=== PATIENT | female | born 1940 | race Caucasian/White ===

== ENCOUNTER 2016-10-07 11:20 | Inpatient (IN) | payer MEDICARE ==
[2016-10-07] VITALS (8 sets, daily range): BP systolic 117–127; BP diastolic 41–55
[~2016-10-07] VITALS: Ht 172.7 cm; Wt 63.5 kg
[2016-10-07 11:54] LABS: MEAN CORPUSCULAR HEMOGLOBIN 30.6 PG (27.0-31.0); MEAN CORPUSCULAR HGB CONC 31.3 G/DL (32.0-36.0); MEAN CORPUSCULAR VOLUME 98 FL (80-99); MEAN PLATELET VOLUME 7.4 FL (6.5-10.1); PLATELET COUNT 53 K/UL (150-450); RED CELL DISTRIBUTION WIDTH 19.7 % (11.6-14.8)
[2016-10-07] MEDS ORDERED: Tubing IV Cassette IV ONE (11:55)
[2016-10-07 12:05] LABS: ALANINE AMINOTRANSFERASE 11 U/L (3-33); ALBUMIN/GLOBULIN RATIO 1.8 (1.0-2.7); ANION GAP 23 (5-15); ASPARTATE AMINO TRANSFERASE 13 U/L (5-40); CARBON DIOXIDE 18 mEQ/L (20-30); CHLORIDE 98 mEQ/L (98-107); CREATININE 1.2 mg/dL (0.5-0.9); HEMOLYSIS 8; POTASSIUM 3.5 mEQ/L (3.4-4.9); SODIUM 139 mEQ/L (135-145); TOTAL PROTEIN 4.8 g/dL (6.6-8.7)
[2016-10-07 12:06] LABS: TROPONIN I < 0.30 ng/mL (<=0.30)
[2016-10-07 12:16] LABS: CKMB < 1.5 ng/mL (< 3.8)
[2016-10-07 12:34] LABS: BAND NEUTROPHILS % (MANUAL) 3 % (0-8); BASOPHILS % (MANUAL) 0 % (0-2); EOSINOPHILS % (MANUAL) 0 % (0-3); LYMPHOCYTES % (MANUAL) 28 % (20-45); NEUTROPHILS % (MANUAL) 67 % (45-75); NUCLEATED RED BLOOD CELLS 3 /100 WBC; PLATELET ESTIMATE DECREASED; TOTAL CELLS COUNTED 100
[2016-10-07 12:35] LABS: ANISOCYTOSIS 1+; HYPOCHROMASIA 2+; PLATELET MORPHOLOGY NORMAL
--- NOTE | 2016-10-07 12:37 | Emergency Room Report ---
History of Present Illness General Chief Complaint: Generalized Weakness Source: Patient Present Illness HPI Patient present with complaints of dizziness and lightheadedness The patient reports that last week At [facility] patient was transfused blood she has recently been diagnosed with a blood disorder however she was not sure of the name Sounds to be likely MDS Denies any black or tarry stool denies any vomiting of blood Denies any back or flank pain denies any headache Denies any chest pain or short of breath dizziness is significantly worse with standing and ambulation Allergies: Coded Allergies: No Known Allergies (Unverified , 10/07/16) Patient History Past Medical History: see triage record Pertinent Family History: none Reviewed Nursing Documentation: PMH: Agreed, PSxH: Agreed Nursing Documentation-PMH Past Medical History: No History, Except For Hx Hypertension: Yes Review of Systems All Other Systems: negative except mentioned in HPI Physical Exam Vital Signs Date Time Temp Pulse Resp B/P Pulse Ox O2 Delivery O2 Flow Rate FiO2 10/07/16 11:14 97.5 68 20 135/44 98 Room Air 10/07/16 12:00 2.0 Sp02 EP Interpretation: reviewed, normal General Appearance: lethargic Head: normocephalic, atraumatic Eyes: bilateral eye EOMI, bilateral eye PERRL, bilateral eye other - Pale conjunctivae ENT: hearing grossly normal, normal pharynx, TMs + canals normal, uvula midline Neck: full range of motion, supple, no meningismus, no bony tend Respiratory: lungs clear, normal breath sounds, no rhonchi, no respiratory distress, no retraction, no accessory muscle use Cardiovascular #1: normal peripheral pulses, regular rate, rhythm, no edema, no gallop, no JVD, no murmur Gastrointestinal: normal bowel sounds, non tender, soft, no mass, no organomegaly, non-distended, no guarding, no hernia, no pulsatile mass, no rebound Genitourinary: no CVA tenderness Musculoskeletal: normal inspection Neurologic: oriented x3, responsive, 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 III-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 nml as tested, motor strength/ tone normal, sensory intact Psychiatric: mood/affect normal Skin: pallor - significant Lymphatic: normal inspection, no adenopathy Procedures Critical Care Time Critical Care Time 40 minutes for multiple re\re evaluations contact with patient's different physicians Critical findings concerning for life-threatening pathology not including any procedural time Medical Decision Making Diagnostic Impression: Primary Impression: Severe anemia Additional Impression: MDS (myelodysplastic syndrome) ER Course Patient is a fairly complex patient with multiple differential to consideration including but not limited to cardiac cardiopulmonary and vascular emergencies Dr. Norris contacted who is the primary physician Reports the patient has a recent MDS diagnosis Patient cannot provide further information regarding came on however reports Dr. Wiseman is the name Using a search There is a Dr. randi wiseman at [phone] Please note that I did contact the patient's Hemoccult is, after multiple attempts I was unable to speak to the physician Patient has extremity critical given the hemoglobin count We will continue to obtain medical records Patient at this time being emergently transfused and admitted for further inpatient care Labs Test 10/07/16 11:35 10/07/16 12:33 10/07/16 14:30 10/07/16 14:45 White Blood Count 3.0 K/UL (4.8-10.8) Red Blood Count 1.30 M/UL (4.20-5.40) Hemoglobin 4.0 G/DL (12.0-16.0) Hematocrit 12.7 % (37.0-47.0) Mean Corpuscular Volume 98 FL (80-99) Mean Corpuscular Hemoglobin 30.6 PG (27.0-31.0) Mean Corpuscular Hemoglobin Concent 31.3 G/DL (32.0-36.0) Red Cell Distribution Width 19.7 % (11.6-14.8) Platelet Count 53 K/UL (150-450) Mean Platelet Volume 7.4 FL (6.5-10.1) Neutrophils (%) (Auto) % (45.0-75.0) Lymphocytes (%) (Auto) % (20.0-45.0) Monocytes (%) (Auto) % (1.0-10.0) Eosinophils (%) (Auto) % (0.0-3.0) Basophils (%) (Auto) % (0.0-2.0) Differential Total Cells Counted 100 Neutrophils % (Manual) 67 % (45-75) Lymphocytes % (Manual) 28 % (20-45) Monocytes % (Manual) 2 % (1-10) Eosinophils % (Manual) 0 % (0-3) Basophils % (Manual) 0 % (0-2) Band Neutrophils 3 % (0-8) Nucleated Red Blood Cells 3 /100 WBC Platelet Estimate Decreased Platelet Morphology Normal Polychromasia Occasional Hypochromasia 2+ Anisocytosis 1+ Macrocytosis 1+ Sodium Level 139 mEQ/L (135-145) Potassium Level 3.5 mEQ/L (3.4-4.9) Chloride Level 98 mEQ/L (98-107) Carbon Dioxide Level 18 mEQ/L (20-30) Anion Gap 23 (5-15) Blood Urea Nitrogen 50 mg/dL (7-23) Creatinine 1.2 mg/dL (0.5-0.9) Estimat Glomerular Filtration Rate mL/min (>60) Glucose Level 191 mg/dL (74-106) Calcium Level 9.0 mg/dL (8.6-10.2) Total Bilirubin 0.4 mg/dL (0.0-1.2) Aspartate Amino Transf (AST/SGOT) 13 U/L (5-40) Alanine Aminotransferase (ALT/SGPT) 11 U/L (3-33) Alkaline Phosphatase 41 U/L (35-104) Total Creatine Kinase 31 U/L (26-140) Creatine Kinase MB < 1.5 ng/mL (< 3.8) Creatine Kinase MB Relative Index Troponin I < 0.30 ng/mL (<=0.30) Total Protein 4.8 g/dL (6.6-8.7) Albumin 3.1 g/dL (3.5-5.2) Globulin 1.7 g/dL Albumin/Globulin Ratio 1.8 (1.0-2.7) Prothrombin Time 10.5 SEC (9.30-11.50) Prothromb Time International Ratio 1.0 (0.9-1.1) Activated Partial Thromboplast Time 21 SEC (23-33) Erythrocyte Sedimentation Rate 6 MM/HR (0-30) Reticulocyte Count 8.0 % (0.0-2.0) Folate 13.4 ng/mL (>3.0) Test 10/07/16 15:30 10/08/16 06:55 Urine Color Pale yellow Urine Appearance Clear Urine pH 5 (4.5-8.0) Urine Specific [place] 1.015 (1.005-1.035) Urine Protein Negative (NEGATIVE) Urine Glucose (UA) Negative (NEGATIVE) Urine Ketones Negative (NEGATIVE) Urine Occult Blood Negative (NEGATIVE) Urine Nitrite Negative (NEGATIVE) Urine Bilirubin Negative (NEGATIVE) Urine Urobilinogen Normal MG/DL (0.0-1.0) Urine Leukocyte Esterase Negative (NEGATIVE) Urine RBC 0-2 /HPF (0 - 2) Urine WBC 0-2 /HPF (0 - 2) Urine Squamous Epithelial Cells Few /LPF (NONE/OCC) Urine Bacteria Few /HPF (NONE) Urine Eosinophils None seen Urine Random Sodium 29 mmol/L Urine Random Chloride 32 mmol/L Urine Potassium Timed 54 mmol/L White Blood Count 1.8 K/UL (4.8-10.8) Red Blood Count 2.19 M/UL (4.20-5.40) Hemoglobin 6.4 G/DL (12.0-16.0) Hematocrit 19.5 % (37.0-47.0) Mean Corpuscular Volume 89 FL (80-99) Mean Corpuscular Hemoglobin 29.2 PG (27.0-31.0) Mean Corpuscular Hemoglobin Concent 32.9 G/DL (32.0-36.0) Red Cell Distribution Width 15.9 % (11.6-14.8) Platelet Count 44 K/UL (150-450) Mean Platelet Volume 9.7 FL (6.5-10.1) Neutrophils (%) (Auto) % (45.0-75.0) Lymphocytes (%) (Auto) % (20.0-45.0) Monocytes (%) (Auto) % (1.0-10.0) Eosinophils (%) (Auto) % (0.0-3.0) Basophils (%) (Auto) % (0.0-2.0) Differential Total Cells Counted 100 Neutrophils % (Manual) 60 % (45-75) Lymphocytes % (Manual) 34 % (20-45) Monocytes % (Manual) 5 % (1-10) Eosinophils % (Manual) 1 % (0-3) Basophils % (Manual) 0 % (0-2) Band Neutrophils 0 % (0-8) Platelet Estimate Adequate Platelet Morphology Normal Polychromasia 1+ Hypochromasia 4+ Anisocytosis 1+ Spherocytes 2+ Sodium Level 141 mEQ/L (135-145) Potassium Level 3.7 mEQ/L (3.4-4.9) Chloride Level 106 mEQ/L (98-107) Carbon Dioxide Level 23 mEQ/L (20-30) Anion Gap 12 (5-15) Blood Urea Nitrogen 43 mg/dL (7-23) Creatinine 0.9 mg/dL (0.5-0.9) Estimat Glomerular Filtration Rate mL/min (>60) Glucose Level 115 mg/dL (74-106) Uric Acid 3.8 mg/dL (3.0-7.5) Calcium Level 8.1 mg/dL (8.6-10.2) Phosphorus Level 3.0 mg/dL (2.5-4.8) Magnesium Level 2.0 mg/dL (1.7-2.5) Iron Level 138 ug/dL (37-145) Total Iron Binding Capacity 195 ug/dL (250-400) Percent Iron Saturation 71 % (15-50) Unsaturated Iron Binding 57 ug/dL (112-346) Total Bilirubin 0.4 mg/dL (0.0-1.2) Aspartate Amino Transf (AST/SGOT) 11 U/L (5-40) Alanine Aminotransferase (ALT/SGPT) 8 U/L (3-33) Alkaline Phosphatase 38 U/L (35-104) Lactate Dehydrogenase 175 U/L (135-230) Total Creatine Kinase 35 U/L (26-140) Total Protein 4.1 g/dL (6.6-8.7) Albumin 2.6 g/dL (3.5-5.2) Globulin 1.5 g/dL Albumin/Globulin Ratio 1.7 (1.0-2.7) Carcinoembryonic Antigen 1.9 ng/mL Vitamin B12 Level 321 pg/mL (211-946) Thyroid Stimulating Hormone (TSH) 3.690 uIU/mL (0.300-4.500) Free Thyroxine 1.30 ng/dL (0.86-1.85) EKG Diagnostic Results Rate: normal Rhythm: NSR ST Segments: other - Nonspecific ST and T-wave changes, nonspecific QRS prolongation Rhythm Strip Diag. Results EP Interpretation: yes Rate: 60 Rhythm: NSR, no PVC's, no ectopy Chest X-Ray Diagnostic Results EP Interpretation: Yes Findings: no consolidation, no effusion, no pneumothorax Number of Views: 1 Last Vital Signs Date Time Temp Pulse Resp B/P Pulse Ox O2 Delivery O2 Flow Rate FiO2 10/07/16 12:00 83 20 118/43 95 Nasal Cannula 2.0 10/07/16 11:14 97.5 Status: improved Disposition: ADMITTED INPATIENT Condition: Critical DANIELLE FRANCES D.O. October 07, 2016 12:36
[2016-10-07 12:42] LABS: POLYCHROMASIA OCCASIONAL
[2016-10-07 12:43] LABS: MACROCYTES 1+
--- NOTE | 2016-10-07 12:55 | Diagnostic Imaging Report ---
Indication: Chest Pain Comparison: None A single view chest radiograph was obtained. Findings: No definite infiltrate or pulmonary vascular congestion identified. The heart is enlarged. The aorta is mildly enlarged consistent with atherosclerotic vascular disease. The bones are osteopenic. Impression: No acute disease
[2016-10-07 13:55] LABS: PROTHROMBIN TIME 10.5 SEC (9.30-11.50)
[2016-10-07] MEDS ORDERED: UNOBMED (14:07)
[2016-10-07] MEDS ORDERED: Morphine Sulfate 2mg/ml Inj IVP PRN (14:30)
[2016-10-07] MEDS ORDERED: LORazepam Inj 2mg/ml 1ml IV PRN (14:30)
[2016-10-07] MEDS ORDERED: Mylanta II UD 30ml ORAL PRN (14:30)
[2016-10-07] MEDS ORDERED: Zolpidem 5mg tab ORAL PRN (14:30)
[2016-10-07] MEDS ORDERED: Miralax 17gm pkt ORAL PRN (14:30)
--- NOTE | 2016-10-07 16:39 | Diagnostic Imaging Report ---
Indication:Elevated Bun and Creatinine. Technique: Grayscale and duplex Doppler imaging of the kidneys performed. Comparison: None Findings: The size, contour, and echogenicity of both kidneys are within normal limits. There is no hydronephrosis. IVC is unremarkable. Incidentally the gallbladder shows multiple stones. Urinary bladder is unremarkable. Right kidney measures between 10 and 11 cm and on the left between 11 and 12 cm in length. Impression: Negative ultrasound of the kidneys. Gallstones incidentally noted
[2016-10-07 17:34] LABS: APPEARANCE,URINE CLEAR; KETONES,URINE NEGATIVE (NEGATIVE); LEUKOCYTE ESTERASE ,URINE NEGATIVE (NEGATIVE); NITRITE,URINE NEGATIVE (NEGATIVE); PH,URINE 5 (4.5-8.0); PROTEIN,URINE NEGATIVE (NEGATIVE); UROBILINOGEN,URINE NORMAL MG/DL (0.0-1.0)
[2016-10-07 18:22] LABS: BACTERIA,URINE FEW /HPF; RBC,URINE 0-2 /HPF (0 - 2); SQUAMOUS EPITHELIAL CELL,UR FEW /LPF (NONE/OCC); WBC,URINE 0-2 /HPF (0 - 2)
[2016-10-07 19:34] LABS: PATH BLOOD SMEAR/OMC SENT TO PATHOLOGIST
[2016-10-08] VITALS (7 sets, daily range): BP systolic 96–129; BP diastolic 42–69
--- NOTE | 2016-10-08 00:11 | History and Physical ---
History of Present Illness General Date patient seen: October 07, 2016 Reason for Hospitalization: Generalized Weakness Present Illness HPI 76 year old female with hx of MDS on chemotherapy presented with complaints of dizziness and lightheadedness She was transfused blood last week. Her Hemoglobin was 4 in ER. She is admitted to telemetry for further work up. Allergies: Coded Allergies: No Known Allergies (Unverified , 10/07/16) Medication History Miscellaneous Medications Unable to Obtain Medications (Unable To Obtain Meds), (Reported) Patient History Healthcare decision maker NONE Resuscitation status Full Code Advanced Directive on File Past Medical/Surgical History Past Medical/Surgical History: (1) Severe anemia (2) MDS (myelodysplastic syndrome) Review of Systems Constitutional: Reports: malaise, weakness All Other Systems: negative except mentioned in HPI Physical Exam General Appearance: WD/WN Lines, tubes and drains: peripheral HEENT: normocephalic, anicteric Neck: non-tender Respiratory/Chest: chest wall non-tender Cardiovascular/Chest: normal peripheral pulses, regular rhythm Extremities: normal range of motion Skin Exam: normal pigmentation 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 grossly normal Last 24 Hour Vital Signs Date Time Temp Pulse Resp B/P Pulse Ox O2 Delivery O2 Flow Rate FiO2 10/07/16 20:29 98.3 62 19 118/45 97 Nasal Cannula 2.0 10/07/16 20:00 67 10/07/16 19:30 97 Nasal Cannula 1.0 24 10/07/16 19:30 Nasal Cannula 1.0 24 10/07/16 18:30 69 18 125/55 96 Room Air 10/07/16 17:41 99.0 68 18 123/41 100 Nasal Cannula 2.0 10/07/16 16:00 68 18 123/41 100 Nasal Cannula 2.0 10/07/16 15:00 99.0 67 20 10/07/16 14:00 70 18 127/42 95 Nasal Cannula 2.0 10/07/16 13:30 98.5 64 20 10/07/16 13:15 98.5 66 18 10/07/16 12:00 83 20 118/43 95 Nasal Cannula 2.0 10/07/16 11:14 97.5 68 20 135/44 98 Room Air Intake and Output 10/07/16 10/08/16 18:59 06:59 Intake Total 830 ml Balance 830 ml Intake Oral 0 ml IV Total 500 ml Blood Product 330 ml Laboratory Tests Test 10/07/16 11:35 10/07/16 12:33 10/07/16 14:30 10/07/16 14:45 White Blood Count 3.0 K/UL (4.8-10.8) L Red Blood Count 1.30 M/UL (4.20-5.40) L Hemoglobin 4.0 G/DL (12.0-16.0) *L Hematocrit 12.7 % (37.0-47.0) L Mean Corpuscular Volume 98 FL (80-99) Mean Corpuscular Hemoglobin 30.6 PG (27.0-31.0) Mean Corpuscular Hemoglobin Concent 31.3 G/DL (32.0-36.0) L Red Cell Distribution Width 19.7 % (11.6-14.8) H Platelet Count 53 K/UL (150-450) L Mean Platelet Volume 7.4 FL (6.5-10.1) Neutrophils (%) (Auto) % (45.0-75.0) Lymphocytes (%) (Auto) % (20.0-45.0) Monocytes (%) (Auto) % (1.0-10.0) Eosinophils (%) (Auto) % (0.0-3.0) Basophils (%) (Auto) % (0.0-2.0) Differential Total Cells Counted 100 Neutrophils % (Manual) 67 % (45-75) Lymphocytes % (Manual) 28 % (20-45) Monocytes % (Manual) 2 % (1-10) Eosinophils % (Manual) 0 % (0-3) Basophils % (Manual) 0 % (0-2) Band Neutrophils 3 % (0-8) Nucleated Red Blood Cells 3 /100 WBC Platelet Estimate Decreased L Platelet Morphology Normal Polychromasia Occasional Hypochromasia 2+ Anisocytosis 1+ Macrocytosis 1+ Sodium Level 139 mEQ/L (135-145) Potassium Level 3.5 mEQ/L (3.4-4.9) Chloride Level 98 mEQ/L (98-107) Carbon Dioxide Level 18 mEQ/L (20-30) L Anion Gap 23 (5-15) H Blood Urea Nitrogen 50 mg/dL (7-23) H Creatinine 1.2 mg/dL (0.5-0.9) H Estimat Glomerular Filtration Rate mL/min (>60) Glucose Level 191 mg/dL (74-106) H Calcium Level 9.0 mg/dL (8.6-10.2) Total Bilirubin 0.4 mg/dL (0.0-1.2) Aspartate Amino Transf (AST/SGOT) 13 U/L (5-40) Alanine Aminotransferase (ALT/SGPT) 11 U/L (3-33) Alkaline Phosphatase 41 U/L (35-104) Total Creatine Kinase 31 U/L (26-140) Creatine Kinase MB < 1.5 ng/mL (< 3.8) Creatine Kinase MB Relative Index Troponin I < 0.30 ng/mL (<=0.30) Total Protein 4.8 g/dL (6.6-8.7) L Albumin 3.1 g/dL (3.5-5.2) L Globulin 1.7 g/dL Albumin/Globulin Ratio 1.8 (1.0-2.7) Prothrombin Time 10.5 SEC (9.30-11.50) Prothromb Time International Ratio 1.0 (0.9-1.1) Activated Partial Thromboplast Time 21 SEC (23-33) L Erythrocyte Sedimentation Rate 6 MM/HR (0-30) Reticulocyte Count 8.0 % (0.0-2.0) H Folate Pending Test 10/07/16 15:30 Urine Color Pale yellow Urine Appearance Clear Urine pH 5 (4.5-8.0) Urine Specific [place] 1.015 (1.005-1.035) Urine Protein Negative (NEGATIVE) Urine Glucose (UA) Negative (NEGATIVE) Urine Ketones Negative (NEGATIVE) Urine Occult Blood Negative (NEGATIVE) Urine Nitrite Negative (NEGATIVE) Urine Bilirubin Negative (NEGATIVE) Urine Urobilinogen Normal MG/DL (0.0-1.0) Urine Leukocyte Esterase Negative (NEGATIVE) Urine RBC 0-2 /HPF (0 - 2) Urine WBC 0-2 /HPF (0 - 2) Urine Squamous Epithelial Cells Few /LPF (NONE/OCC) Urine Bacteria Few /HPF (NONE) Urine Eosinophils None seen Urine Random Sodium 29 mmol/L Urine Random Chloride 32 mmol/L Urine Potassium Timed 54 mmol/L Height (Feet): 5 Height (Inches): 8.00 Weight (Pounds): 140 Medications Current Medications Medications (Trade) Dose Ordered Sig/Coby Route PRN Reason Start Time Stop Time Status Last Admin Dose Admin Acetaminophen (Tylenol) 650 mg Q4H PRN ORAL fever 10/07/16 14:30 11/06/16 14:29 Al Hydroxide/Mg Hydroxide (Mylanta II) 30 ml Q6H PRN ORAL dyspepsia 10/07/16 14:30 11/06/16 14:29 Dextrose (Dextrose 50%) STAT PRN IV Hypoglycemia 10/07/16 14:30 11/06/16 14:29 Lorazepam (Ativan 2mg/ml 1ml) 0.5 mg Q4H PRN IV For Anxiety 10/07/16 14:30 10/14/16 14:29 Morphine Sulfate (Morphine Sulfate) 1 mg Q4H PRN IVP SEVERE PAIN 10/07/16 14:30 10/14/16 14:29 Ondansetron HCl (Zofran) 4 mg Q6H PRN IVP Nausea & Vomiting 10/07/16 14:30 11/06/16 14:29 Polyethylene Glycol (Miralax) 17 gm HSPRN PRN ORAL Constipation 10/07/16 14:30 11/06/16 14:29 Zolpidem Tartrate (Ambien) 5 mg HSPRN PRN ORAL Insomnia 10/07/16 14:30 11/06/16 14:29 Assessment/Plan Problem List: (1) Symptomatic anemia ICD Codes: D64.9 - Anemia, unspecified SNOMED: 203834637 (2) MDS (myelodysplastic syndrome) ICD Codes: D46.9 - Myelodysplastic syndrome, unspecified SNOMED: 427581563 (3) Severe anemia ICD Codes: D64.9 - Anemia, unspecified SNOMED: 859452850 (4) History of hypertension ICD Codes: Z86.79 - Personal history of other diseases of the circulatory system SNOMED: 043757236 Assessment/Plan prbc check h/h in am rule out GI loss dvt prophylaxis monitor BP RM GONZALEZ October 08, 2016 00:11
[2016-10-08 07:46] LABS: MEAN CORPUSCULAR HEMOGLOBIN 29.2 PG (27.0-31.0); MEAN CORPUSCULAR HGB CONC 32.9 G/DL (32.0-36.0); MEAN CORPUSCULAR VOLUME 89 FL (80-99); MEAN PLATELET VOLUME 9.7 FL (6.5-10.1); PLATELET COUNT 44 K/UL (150-450); RED BLOOD COUNT 2.19 M/UL (4.20-5.40); RED CELL DISTRIBUTION WIDTH 15.9 % (11.6-14.8)
[2016-10-08 07:54] LABS: WHITE BLOOD COUNT 1.8 K/UL (4.8-10.8)
[2016-10-08 08:00] LABS: ALANINE AMINOTRANSFERASE 8 U/L (3-33); ALBUMIN/GLOBULIN RATIO 1.7 (1.0-2.7); ANION GAP 12 (5-15); ASPARTATE AMINO TRANSFERASE 11 U/L (5-40); CALCIUM 8.1 mg/dL (8.6-10.2); CARBON DIOXIDE 23 mEQ/L (20-30); CHLORIDE 106 mEQ/L (98-107); CREATININE 0.9 mg/dL (0.5-0.9); HEMOLYSIS 2; POTASSIUM 3.7 mEQ/L (3.4-4.9); SODIUM 141 mEQ/L (135-145); TOTAL PROTEIN 4.1 g/dL (6.6-8.7)
[2016-10-08 08:03] LABS: HEMOLYSIS 4; IRON 138 ug/dL (37-145); TOTAL IRON BINDING CAPACITY 195 ug/dL (250-400)
[2016-10-08 08:25] LABS: LACTATE DEHYDROGENASE 175 U/L (135-230); URIC ACID 3.8 mg/dL (3.0-7.5)
--- NOTE | 2016-10-08 09:19 | Pulmonology Progress Note ---
Assessment/Plan Problems: (1) Symptomatic anemia (2) MDS (myelodysplastic syndrome) (3) Severe anemia (4) History of hypertension Assessment/Plan prbc prn stool for OB monitor bp anemia w/u pt/ot med/surg Subjective ROS Limited/Unobtainable: No HEENT: Repors: no symptoms Respiratory: Reports: no symptoms Allergies: Coded Allergies: No Known Allergies (Unverified , 10/07/16) Objective Last 24 Hour Vital Signs Date Time Temp Pulse Resp B/P Pulse Ox O2 Delivery O2 Flow Rate FiO2 10/08/16 08:00 98.1 58 20 117/42 97 10/08/16 04:05 98.3 60 19 126/58 95 Nasal Cannula 2.0 10/08/16 04:00 55 10/08/16 00:16 98.6 63 18 129/55 95 Nasal Cannula 2.0 10/08/16 00:00 56 10/07/16 23:30 97.9 60 19 125/55 97 Room Air 10/07/16 20:29 98.3 62 19 118/45 97 Nasal Cannula 2.0 10/07/16 20:15 98.0 60 19 127/50 97 Room Air 10/07/16 20:00 98.2 62 19 117/45 97 Room Air 10/07/16 20:00 67 10/07/16 19:30 97 Nasal Cannula 1.0 24 10/07/16 19:30 Nasal Cannula 1.0 24 10/07/16 18:30 69 18 125/55 96 Room Air 10/07/16 17:41 99.0 68 18 123/41 100 Nasal Cannula 2.0 10/07/16 16:00 68 18 123/41 100 Nasal Cannula 2.0 10/07/16 15:00 99.0 67 20 10/07/16 14:00 70 18 127/42 95 Nasal Cannula 2.0 10/07/16 13:30 98.5 64 20 10/07/16 13:15 98.5 66 18 10/07/16 12:00 83 20 118/43 95 Nasal Cannula 2.0 10/07/16 11:14 97.5 68 20 135/44 98 Room Air Intake and Output 10/07/16 10/08/16 19:00 07:00 Intake Total 830 ml 670 ml Balance 830 ml 670 ml Intake Oral 0 ml 120 ml IV Total 500 ml Blood Product 330 ml 550 ml # Voids 4 General Appearance: WD/WN HEENT: normocephalic Respiratory/Chest: chest wall non-tender, lungs clear Cardiovascular: normal rate Abdomen: normal bowel sounds, no organomegaly 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/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 normal, no motor/sensory deficits Lymphatic: no neck adenopathy Laboratory Tests 10/07/16 11:35: White Blood Count 3.0L, Red Blood Count 1.30L, Hemoglobin 4.0*L, Hematocrit 12.7L, Mean Corpuscular Volume 98, Mean Corpuscular Hemoglobin 30.6, Mean Corpuscular Hemoglobin Concent 31.3L, Red Cell Distribution Width 19.7H, Platelet Count 53L, Mean Platelet Volume 7.4, Neutrophils (%) (Auto) , Lymphocytes (%) (Auto) , Monocytes (%) (Auto) , Eosinophils (%) (Auto) , Basophils (%) (Auto) , Differential Total Cells Counted 100, Neutrophils % ( Manual) 67, Lymphocytes % (Manual) 28, Monocytes % (Manual) 2, Eosinophils % ( Manual) 0, Basophils % (Manual) 0, Band Neutrophils 3, Nucleated Red Blood Cells 3, Platelet Estimate DecreasedL, Platelet Morphology Normal, Polychromasia Occasional, Hypochromasia 2+, Anisocytosis 1+, Macrocytosis 1+, Sodium Level 139, Potassium Level 3.5, Chloride Level 98, Carbon Dioxide Level 18L, Anion Gap 23H, Blood Urea Nitrogen 50H, Creatinine 1.2H, Estimat Glomerular Filtration Rate , Glucose Level 191H, Calcium Level 9.0, Total Bilirubin 0.4, Aspartate Amino Transf (AST/SGOT) 13, Alanine Aminotransferase ( ALT/SGPT) 11, Alkaline Phosphatase 41, Total Creatine Kinase 31, Creatine Kinase MB < 1.5, Creatine Kinase MB Relative Index , Troponin I < 0.30, Total Protein 4.8L, Albumin 3.1L, Globulin 1.7, Albumin/Globulin Ratio 1.8 10/07/16 12:33: Prothrombin Time 10.5, Prothromb Time International Ratio 1.0, Activated Partial Thromboplast Time 21L 10/07/16 14:30: Erythrocyte Sedimentation Rate 6, Reticulocyte Count 8.0H 10/07/16 14:45: Folate [Pending] 10/07/16 15:30: Urine Color Pale yellow, Urine Appearance Clear, Urine pH 5, Urine Specific [place] 1.015, Urine Protein Negative, Urine Glucose (UA) Negative, Urine Ketones Negative, Urine Occult Blood Negative, Urine Nitrite Negative, Urine Bilirubin Negative, Urine Urobilinogen Normal, Urine Leukocyte Esterase Negative , Urine RBC 0-2, Urine WBC 0-2, Urine Squamous Epithelial Cells Few, Urine Bacteria Few, Urine Eosinophils None seen, Urine Random Sodium 29, Urine Random Chloride 32, Urine Potassium Timed 54 10/08/16 06:55: White Blood Count 1.8*L, Red Blood Count 2.19L, Hemoglobin 6.4#*L, Hematocrit 19.5#L, Mean Corpuscular Volume 89#, Mean Corpuscular Hemoglobin 29.2, Mean Corpuscular Hemoglobin Concent 32.9, Red Cell Distribution Width 15.9H, Platelet Count 44L, Mean Platelet Volume 9.7, Neutrophils (%) (Auto) , Lymphocytes (%) (Auto) , Monocytes (%) (Auto) , Eosinophils (%) (Auto) , Basophils (%) (Auto) , Neutrophils % (Manual) [Pending], Lymphocytes % (Manual) [Pending], Platelet Estimate [Pending], Platelet Morphology [Pending], Sodium Level 141, Potassium Level 3.7, Chloride Level 106, Carbon Dioxide Level 23, Anion Gap 12, Blood Urea Nitrogen 43H, Creatinine 0.9, Estimat Glomerular Filtration Rate , Glucose Level 115H, Uric Acid 3.8, Calcium Level 8.1L, Phosphorus Level 3.0, Magnesium Level 2.0, Iron Level 138, Total Iron Binding Capacity 195L, Percent Iron Saturation 71H, Unsaturated Iron Binding 57L, Total Bilirubin 0.4, Aspartate Amino Transf (AST/SGOT) 11, Alanine Aminotransferase ( ALT/SGPT) 8, Alkaline Phosphatase 38, Lactate Dehydrogenase 175, Total Creatine Kinase 35, Total Protein 4.1L, Albumin 2.6L, Globulin 1.5, Albumin/Globulin Ratio 1.7, Carcinoembryonic Antigen 1.9, Vitamin B12 Level 321, Folate [Pending] , Thyroid Stimulating Hormone (TSH) 3.690, Free Thyroxine 1.30, Free Triiodothyronine [Pending] Current Medications Medications (Trade) Dose Ordered Sig/Coby Route PRN Reason Start Time Stop Time Status Last Admin Dose Admin Acetaminophen (Tylenol) 650 mg Q4H PRN ORAL fever 10/07/16 14:30 11/06/16 14:29 Al Hydroxide/Mg Hydroxide (Mylanta II) 30 ml Q6H PRN ORAL dyspepsia 10/07/16 14:30 11/06/16 14:29 Dextrose (Dextrose 50%) STAT PRN IV Hypoglycemia 10/07/16 14:30 11/06/16 14:29 Lorazepam (Ativan 2mg/ml 1ml) 0.5 mg Q4H PRN IV For Anxiety 10/07/16 14:30 10/14/16 14:29 Morphine Sulfate (Morphine Sulfate) 1 mg Q4H PRN IVP SEVERE PAIN 10/07/16 14:30 10/14/16 14:29 Ondansetron HCl (Zofran) 4 mg Q6H PRN IVP Nausea & Vomiting 10/07/16 14:30 11/06/16 14:29 Polyethylene Glycol (Miralax) 17 gm HSPRN PRN ORAL Constipation 10/07/16 14:30 11/06/16 14:29 Zolpidem Tartrate (Ambien) 5 mg HSPRN PRN ORAL Insomnia 10/07/16 14:30 11/06/16 14:29 RM GONZALEZ October 08, 2016 09:19
[2016-10-08 09:56] LABS: ANISOCYTOSIS 1+; BAND NEUTROPHILS % (MANUAL) 0 % (0-8); BASOPHILS % (MANUAL) 0 % (0-2); EOSINOPHILS % (MANUAL) 1 % (0-3); HYPOCHROMASIA 4+; LYMPHOCYTES % (MANUAL) 34 % (20-45); NEUTROPHILS % (MANUAL) 60 % (45-75); PLATELET ESTIMATE ADEQUATE; PLATELET MORPHOLOGY NORMAL; POLYCHROMASIA 1+; SPHEROCYTES 2+; TOTAL CELLS COUNTED 100
[2016-10-09] VITALS (7 sets, daily range): BP systolic 99–128; BP diastolic 41–52
[2016-10-09] MEDS ORDERED: OXYBUTYNIN5 MG/5 M1 PO (00:30)
[2016-10-09] MEDS ORDERED: POTASSIUM CHLO20 ME1 ORAL (00:30)
[2016-10-09] MEDS ORDERED: ATORVASTATIN CA40 MG ORAL (00:30)
[2016-10-09] MEDS ORDERED: VITAMIN D-32000 UNI2 PO (00:30)
[2016-10-09] MEDS ORDERED: LOSARTAN-HCTZ1 EAC1 ORAL (00:30)
[2016-10-09] MEDS ORDERED: FERROUS SULFAT325 M2 ORAL (00:30)
[2016-10-09] MEDS ORDERED: COLACE100 MG ORAL (00:30)
[2016-10-09] MEDS ORDERED: AMIODARONE HCL100 MG ORAL (00:30)
[2016-10-09 07:57] LABS: MEAN CORPUSCULAR HEMOGLOBIN 28.8 PG (27.0-31.0); MEAN CORPUSCULAR HGB CONC 33.1 G/DL (32.0-36.0); MEAN CORPUSCULAR VOLUME 87 FL (80-99); MEAN PLATELET VOLUME 8.8 FL (6.5-10.1); PLATELET COUNT 31 K/UL (150-450); RED BLOOD COUNT 2.38 M/UL (4.20-5.40); RED CELL DISTRIBUTION WIDTH 16.4 % (11.6-14.8)
[2016-10-09 08:14] LABS: ALANINE AMINOTRANSFERASE 8 U/L (3-33); ALBUMIN/GLOBULIN RATIO 1.5 (1.0-2.7); ANION GAP 11 (5-15); ASPARTATE AMINO TRANSFERASE 11 U/L (5-40); CALCIUM 8.2 mg/dL (8.6-10.2); CARBON DIOXIDE 24 mEQ/L (20-30); CHLORIDE 105 mEQ/L (98-107); HEMOLYSIS 3; MAGNESIUM 2.2 mg/dL (1.7-2.5); PHOSPHORUS 3.3 mg/dL (2.5-4.8); POTASSIUM 3.7 mEQ/L (3.4-4.9); SODIUM 140 mEQ/L (135-145)
[2016-10-09 08:18] LABS: WHITE BLOOD COUNT 1.6 K/UL (4.8-10.8)
[2016-10-09 11:28] LABS: FREE TRIIODOTHYRONINE 1.9 pg/mL (2.0-4.4)
[2016-10-09 11:57] LABS: ANISOCYTOSIS 1+; BAND NEUTROPHILS % (MANUAL) 1 % (0-8); BASOPHILS % (MANUAL) 1 % (0-2); EOSINOPHILS % (MANUAL) 1 % (0-3); LYMPHOCYTES % (MANUAL) 38 % (20-45); NEUTROPHILS % (MANUAL) 57 % (45-75); NUCLEATED RED BLOOD CELLS 2 /100 WBC; PLATELET ESTIMATE DECREASED; PLATELET MORPHOLOGY NORMAL; TOTAL CELLS COUNTED 100
[2016-10-09 12:00] LABS: HYPOCHROMASIA 1+
[2016-10-09 12:01] LABS: POLYCHROMASIA 1+
--- NOTE | 2016-10-09 13:04 | Pulmonology Progress Note ---
Assessment/Plan Problems: (1) Symptomatic anemia (2) MDS (myelodysplastic syndrome) (3) Severe anemia (4) History of hypertension Assessment/Plan prbc prn stool for OB monitor bp anemia w/u pt/ot med/surg Subjective ROS Limited/Unobtainable: No Interval Events: receiving blood Allergies: Coded Allergies: No Known Allergies (Unverified , 10/07/16) Objective Last 24 Hour Vital Signs Date Time Temp Pulse Resp B/P Pulse Ox O2 Delivery O2 Flow Rate FiO2 10/09/16 11:43 97.5 66 20 101/43 98 Room Air 10/09/16 08:25 96 Nasal Cannula 2.0 28 10/09/16 08:20 Nasal Cannula 2.0 28 10/09/16 08:00 67 10/09/16 07:55 97.7 60 18 116/41 97 Room Air 10/09/16 04:41 61 10/09/16 04:00 98.0 91 20 99/41 94 Room Air 10/09/16 00:00 61 10/09/16 00:00 97.9 63 19 112/48 99 Room Air 10/08/16 20:00 67 10/08/16 20:00 97.5 66 21 118/46 97 Room Air 10/08/16 19:30 97 Nasal Cannula 2.0 28 10/08/16 19:30 Nasal Cannula 2.0 28 10/08/16 16:00 59 10/08/16 15:51 97.5 89 19 101/49 99 Nasal Cannula 1.0 Intake and Output 10/08/16 10/09/16 19:00 07:00 Intake Total 440 ml Output Total 900 ml Balance -460 ml Intake Oral 440 ml Output Urine Total 900 ml # Voids 2 General Appearance: WD/WN HEENT: normocephalic, atraumatic Respiratory/Chest: chest wall non-tender, lungs clear Breasts: no masses Cardiovascular: normal peripheral pulses, normal rate Abdomen: normal bowel sounds Genitourinary: normal external genitalia Skin: no rash, no lesions 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 grossly normal Lymphatic: no neck adenopathy Laboratory Tests 10/09/16 07:10: White Blood Count 1.6*L, Red Blood Count 2.38L, Hemoglobin 6.8*L, Hematocrit 20.7L, Mean Corpuscular Volume 87, Mean Corpuscular Hemoglobin 28.8, Mean Corpuscular Hemoglobin Concent 33.1, Red Cell Distribution Width 16.4H, Platelet Count 31L, Mean Platelet Volume 8.8, Neutrophils (%) (Auto) , Lymphocytes (%) (Auto) , Monocytes (%) (Auto) , Eosinophils (%) (Auto) , Basophils (%) (Auto) , Differential Total Cells Counted 100, Neutrophils % ( Manual) 57, Lymphocytes % (Manual) 38, Monocytes % (Manual) 2, Eosinophils % ( Manual) 1, Basophils % (Manual) 1, Band Neutrophils 1, Nucleated Red Blood Cells 2, Platelet Estimate DecreasedL, Platelet Morphology Normal, Polychromasia 1+, Hypochromasia 1+, Basophilic Stippling Occasional, Anisocytosis 1+, Prothrombin Time 10.0, Prothromb Time International Ratio 1.0, Activated Partial Thromboplast Time 21L, Sodium Level 140, Potassium Level 3.7, Chloride Level 105, Carbon Dioxide Level 24, Anion Gap 11, Blood Urea Nitrogen 36H, Creatinine 1.0H, Estimat Glomerular Filtration Rate , Glucose Level 109H, Calcium Level 8.2L, Phosphorus Level 3.3, Magnesium Level 2.2, Total Bilirubin 0.4, Aspartate Amino Transf (AST/SGOT) 11, Alanine Aminotransferase (ALT/SGPT) 8 , Alkaline Phosphatase 35, Total Protein 4.0L, Albumin 2.4L, Globulin 1.6, Albumin/Globulin Ratio 1.5 10/09/16 07:30: Stool Occult Blood Positive Current Medications Medications (Trade) Dose Ordered Sig/Coby Route PRN Reason Start Time Stop Time Status Last Admin Dose Admin Acetaminophen (Tylenol) 650 mg Q4H PRN ORAL fever 10/07/16 14:30 11/06/16 14:29 Al Hydroxide/Mg Hydroxide (Mylanta II) 30 ml Q6H PRN ORAL dyspepsia 10/07/16 14:30 11/06/16 14:29 Dextrose (Dextrose 50%) STAT PRN IV Hypoglycemia 10/07/16 14:30 11/06/16 14:29 Lorazepam (Ativan 2mg/ml 1ml) 0.5 mg Q4H PRN IV For Anxiety 10/07/16 14:30 10/14/16 14:29 Morphine Sulfate (Morphine Sulfate) 1 mg Q4H PRN IVP SEVERE PAIN 10/07/16 14:30 10/14/16 14:29 Ondansetron HCl (Zofran) 4 mg Q6H PRN IVP Nausea & Vomiting 10/07/16 14:30 11/06/16 14:29 Polyethylene Glycol (Miralax) 17 gm HSPRN PRN ORAL Constipation 10/07/16 14:30 11/06/16 14:29 Zolpidem Tartrate (Ambien) 5 mg HSPRN PRN ORAL Insomnia 10/07/16 14:30 11/06/16 14:29 RM GONZALEZ October 09, 2016 13:04
--- NOTE | 2016-10-09 13:54 | GI Initial Consult Note ---
Danay Marquezh Jasmeet NIlanPIlan 10/09/16 1354: History of Present Illness General Date patient seen: October 09, 2016 Time patient seen: 11:00 Reason for Hospitalization: Generalized Weakness Referring physician: RM PANCHAL Reason for Consultation: OB STOOL POSITIVE Present Illness HPI 76 year old female with hx of MDS on chemotherapy presented with complaints of dizziness and lightheadedness She was transfused blood last week. Her Hemoglobin was 4 in ER. She is admitted to telemetry for further work up. GI CONSULT: HPI as noted above. GI consulted for anemia and positive occult blood. Pt seen on floor, awake A&Ox4 NAD with no active s/sx of bleeding. No general GI complaints by patient. She presents today with pancytopenia, hx of MDS and positive occult stool. According to the patient, she's had multiple colonoscopies and upper endoscopies in the past for her anemia with unremarkable results. In addition the patient had undergone a small bowel capsule endoscopy with unremarkable results. The patient stated she was suppose to go to [facility] to have a Small Bowel Double Balloon Endoscopy perform. PCP - Adolph Dalton @ [phone] Home Meds Reported Medications Losartan/Hydrochlorothiazide (LOSARTAN-HCTZ 100-25 MG TAB) 1 Each Tablet, 1 TAB ORAL DAILY, TAB 10/09/16 Oxybutynin Chloride (OXYBUTYNIN CHLORIDE) 5 Mg/5 Ml Syrup, 5 MG PO DAILY, ML 10/09/16 Cholecalciferol (Vitamin D3) (Vitamin D-3) 2,000 Unit Tablet, 1000 UNIT PO, TAB 10/09/16 Potassium Chloride* (K-DUR*) 20 Meq Tab.er.prt, 20 MEQ ORAL DAILY, #7 TAB 0 Refills 10/09/16 Docusate Sodium* (COLACE*) 100 Mg Capsule, 100 MG ORAL DAILY, CAP 10/09/16 Ferrous Sulfate (FERROUS SULFATE) 325 Mg Tablet.dr, 325 MG ORAL DAILY, #30 TAB 0 Refills 10/09/16 Atorvastatin Calcium* (ATORVASTATIN CALCIUM*) 40 Mg Tablet, 40 MG ORAL BEDTIME, TAB 10/09/16 Amiodarone Hcl (AMIODARONE HCL) 100 Mg Tablet, 200 MG ORAL DAILY, TAB 10/09/16 Unable to Obtain Medications (UNABLE TO OBTAIN MEDS) 1 Ea Ea 10/07/16 Med list reviewed/reconciled: Yes Allergies: Coded Allergies: No Known Allergies (Unverified , 10/07/16) Patient History History Provided By: Patient, Medical Record [facility] Narrative (1) Severe anemia (2) MDS (myelodysplastic syndrome) Social History: Denies: alcohol use, drug use, other, smoking Review of Systems All Other Systems: negative except mentioned in HPI Physical Exam Vital Signs Date Time Temp Pulse Resp B/P Pulse Ox O2 Delivery O2 Flow Rate FiO2 10/07/16 11:14 97.5 68 20 135/44 98 Room Air 10/07/16 12:00 2.0 10/07/16 19:30 24 Sp02 EP Interpretation: reviewed Labs Laboratory Tests Test 10/09/16 07:10 10/09/16 07:30 White Blood Count 1.6 K/UL (4.8-10.8) *L Red Blood Count 2.38 M/UL (4.20-5.40) L Hemoglobin 6.8 G/DL (12.0-16.0) *L Hematocrit 20.7 % (37.0-47.0) L Mean Corpuscular Volume 87 FL (80-99) Mean Corpuscular Hemoglobin 28.8 PG (27.0-31.0) Mean Corpuscular Hemoglobin Concent 33.1 G/DL (32.0-36.0) Red Cell Distribution Width 16.4 % (11.6-14.8) H Platelet Count 31 K/UL (150-450) L Mean Platelet Volume 8.8 FL (6.5-10.1) Neutrophils (%) (Auto) % (45.0-75.0) Lymphocytes (%) (Auto) % (20.0-45.0) Monocytes (%) (Auto) % (1.0-10.0) Eosinophils (%) (Auto) % (0.0-3.0) Basophils (%) (Auto) % (0.0-2.0) Differential Total Cells Counted 100 Neutrophils % (Manual) 57 % (45-75) Lymphocytes % (Manual) 38 % (20-45) Monocytes % (Manual) 2 % (1-10) Eosinophils % (Manual) 1 % (0-3) Basophils % (Manual) 1 % (0-2) Band Neutrophils 1 % (0-8) Nucleated Red Blood Cells 2 /100 WBC Platelet Estimate Decreased L Platelet Morphology Normal Polychromasia 1+ Hypochromasia 1+ Basophilic Stippling Occasional Anisocytosis 1+ Prothrombin Time 10.0 SEC (9.30-11.50) Prothromb Time International Ratio 1.0 (0.9-1.1) Activated Partial Thromboplast Time 21 SEC (23-33) L Sodium Level 140 mEQ/L (135-145) Potassium Level 3.7 mEQ/L (3.4-4.9) Chloride Level 105 mEQ/L (98-107) Carbon Dioxide Level 24 mEQ/L (20-30) Anion Gap 11 (5-15) Blood Urea Nitrogen 36 mg/dL (7-23) H Creatinine 1.0 mg/dL (0.5-0.9) H Estimat Glomerular Filtration Rate mL/min (>60) Glucose Level 109 mg/dL (74-106) H Calcium Level 8.2 mg/dL (8.6-10.2) L Phosphorus Level 3.3 mg/dL (2.5-4.8) Magnesium Level 2.2 mg/dL (1.7-2.5) Total Bilirubin 0.4 mg/dL (0.0-1.2) Aspartate Amino Transf (AST/SGOT) 11 U/L (5-40) Alanine Aminotransferase (ALT/SGPT) 8 U/L (3-33) Alkaline Phosphatase 35 U/L (35-104) Total Protein 4.0 g/dL (6.6-8.7) L Albumin 2.4 g/dL (3.5-5.2) L Globulin 1.6 g/dL Albumin/Globulin Ratio 1.5 (1.0-2.7) Stool Occult Blood Positive (NEGATIVE) General Appearance: well appearing, no apparent distress, alert Head: normocephalic EENT: normal ENT inspection Neck: supple Respiratory: normal breath sounds, no respiratory distress Cardiovascular: normal rate Gastrointestinal: normal inspection, non tender, soft Rectal: deferred Neurologic: normal inspection, alert, oriented x3, responsive Psychiatric: normal inspection, judgement/insight normal, memory normal, other Skin: normal inspection, normal color, no rash, warm/dry Lymphatic: normal inspection, no adenopathy Current Medications Current Medications Medications (Trade) Dose Ordered Sig/Coby Route PRN Reason Start Time Stop Time Status Last Admin Dose Admin Acetaminophen (Tylenol) 650 mg Q4H PRN ORAL fever 10/07/16 14:30 11/06/16 14:29 Al Hydroxide/Mg Hydroxide (Mylanta II) 30 ml Q6H PRN ORAL dyspepsia 10/07/16 14:30 11/06/16 14:29 Dextrose (Dextrose 50%) STAT PRN IV Hypoglycemia 10/07/16 14:30 11/06/16 14:29 Lorazepam (Ativan 2mg/ml 1ml) 0.5 mg Q4H PRN IV For Anxiety 10/07/16 14:30 10/14/16 14:29 Morphine Sulfate (Morphine Sulfate) 1 mg Q4H PRN IVP SEVERE PAIN 10/07/16 14:30 10/14/16 14:29 Ondansetron HCl (Zofran) 4 mg Q6H PRN IVP Nausea & Vomiting 10/07/16 14:30 11/06/16 14:29 Polyethylene Glycol (Miralax) 17 gm HSPRN PRN ORAL Constipation 10/07/16 14:30 11/06/16 14:29 Zolpidem Tartrate (Ambien) 5 mg HSPRN PRN ORAL Insomnia 10/07/16 14:30 11/06/16 14:29 GI: Plan Problems: (1) Pancytopenia (2) Severe anemia (3) MDS (myelodysplastic syndrome) (4) History of hypertension (5) Symptomatic anemia Plan GI procedures at this time held given neutropenia and multiple unremarkable past endoscopic procedures, we will consider when white count increases. resume regular diet monitor H&H, transfuse prn Hgb < 8.0 OB stool positive ppi neutropenic precautions fu labs recommend heme/onc consult Discussed with Dr. Pickard. Thank you for referring this patient, we will follow. EVELYNE PICKARD 10/11/16 0915: History of Present Illness General Reason for Hospitalization: Generalized Weakness Present Illness Home Meds Reported Medications Losartan/Hydrochlorothiazide (LOSARTAN-HCTZ 100-25 MG TAB) 1 Each Tablet, 1 TAB ORAL DAILY, TAB 10/09/16 Oxybutynin Chloride (OXYBUTYNIN CHLORIDE) 5 Mg/5 Ml Syrup, 5 MG PO DAILY, ML 10/09/16 Cholecalciferol (Vitamin D3) (Vitamin D-3) 2,000 Unit Tablet, 1000 UNIT PO, TAB 10/09/16 Potassium Chloride* (K-DUR*) 20 Meq Tab.er.prt, 20 MEQ ORAL DAILY, #7 TAB 0 Refills 10/09/16 Docusate Sodium* (COLACE*) 100 Mg Capsule, 100 MG ORAL DAILY, CAP 10/09/16 Ferrous Sulfate (FERROUS SULFATE) 325 Mg Tablet.dr, 325 MG ORAL DAILY, #30 TAB 0 Refills 10/09/16 Atorvastatin Calcium* (ATORVASTATIN CALCIUM*) 40 Mg Tablet, 40 MG ORAL BEDTIME, TAB 10/09/16 Amiodarone Hcl (AMIODARONE HCL) 100 Mg Tablet, 200 MG ORAL DAILY, TAB 10/09/16 Unable to Obtain Medications (UNABLE TO OBTAIN MEDS) 1 Ea Ea 10/07/16 Allergies: Coded Allergies: No Known Allergies (Unverified , 10/07/16) GI: Plan Plan The patient was seen and examined at bedside and all new and available data was reviewed in the patients chart. I agree with the above findings, impression and plan. (Patient seen earlier today. Signature stamp does not reflect patient encounter time.). -Melissa Hagen MD NLaura October 09, 2016 13:54 EVELYNE PICKARD October 11, 2016 09:15
[2016-10-10 03:49] VITALS: BP 134/65
[2016-10-10 08:00] VITALS: BP 129/57
[2016-10-10 08:10] LABS: PROTHROMBIN TIME 9.9 SEC (9.30-11.50)
[2016-10-10 08:13] LABS: ALANINE AMINOTRANSFERASE 10 U/L (3-33); ALBUMIN/GLOBULIN RATIO 1.8 (1.0-2.7); ANION GAP 13 (5-15); ASPARTATE AMINO TRANSFERASE 15 U/L (5-40); CALCIUM 8.4 mg/dL (8.6-10.2); CARBON DIOXIDE 24 mEQ/L (20-30); CHLORIDE 107 mEQ/L (98-107); CREATININE 0.9 mg/dL (0.5-0.9); HEMOLYSIS 4; MAGNESIUM 2.2 mg/dL (1.7-2.5); PHOSPHORUS 4.2 mg/dL (2.5-4.8); POTASSIUM 3.4 mEQ/L (3.4-4.9); SODIUM 144 mEQ/L (135-145); TOTAL PROTEIN 4.2 g/dL (6.6-8.7)
[2016-10-10 08:16] LABS: MEAN CORPUSCULAR HEMOGLOBIN 29.5 PG (27.0-31.0); MEAN CORPUSCULAR HGB CONC 33.5 G/DL (32.0-36.0); MEAN CORPUSCULAR VOLUME 88 FL (80-99); PLATELET COUNT 36 K/UL (150-450); RED BLOOD COUNT 3.11 M/UL (4.20-5.40); RED CELL DISTRIBUTION WIDTH 15.8 % (11.6-14.8)
[2016-10-10 08:21] LABS: WHITE BLOOD COUNT 1.4 K/UL (4.8-10.8)
--- NOTE | 2016-10-10 10:55 | GI Progress Note ---
Assessment/Plan Problems: (1) Pancytopenia ICD Codes: D61.818 - Other pancytopenia SNOMED: 923813871 (2) Severe anemia ICD Codes: D64.9 - Anemia, unspecified SNOMED: 397582376 (3) MDS (myelodysplastic syndrome) ICD Codes: D46.9 - Myelodysplastic syndrome, unspecified SNOMED: 634288560 (4) Symptomatic anemia ICD Codes: D64.9 - Anemia, unspecified SNOMED: 283395012 Status: unchanged Status Narrative Discussed with Dr. Garcia. Assessment/Plan OB stool positive elevated iron levels recommend heme/onc consult given hx of MDS GI procedures at this time, will consider when white count stable regular diet monitor H&H, transfuse prn Hgb < 8.0 ppi neutropenic precautions fu labs Subjective Gastrointestinal/Abdominal: Reports: no symptoms Objective Last 24 Hour Vital Signs Date Time Temp Pulse Resp B/P Pulse Ox O2 Delivery O2 Flow Rate FiO2 10/10/16 08:00 97.5 60 18 129/57 96 Room Air 10/10/16 03:49 98.5 69 19 134/65 96 Room Air 10/09/16 23:53 98.5 84 18 128/52 94 Room Air 10/09/16 20:22 97.8 85 19 123/45 95 Room Air 10/09/16 19:59 Nasal Cannula 2.0 28 10/09/16 19:58 96 Nasal Cannula 2.0 28 10/09/16 15:44 99.3 57 18 123/46 Room Air 10/09/16 12:00 65 10/09/16 11:43 97.5 66 20 101/43 98 Room Air Intake and Output 10/09/16 10/10/16 19:00 07:00 Intake Total 360 ml Balance 360 ml Intake Oral 360 ml # Voids 4 3 Laboratory Tests Test 10/10/16 07:10 White Blood Count 1.4 K/UL (4.8-10.8) *L Red Blood Count 3.11 M/UL (4.20-5.40) L Hemoglobin 9.2 G/DL (12.0-16.0) #L Hematocrit 27.3 % (37.0-47.0) #L Mean Corpuscular Volume 88 FL (80-99) Mean Corpuscular Hemoglobin 29.5 PG (27.0-31.0) Mean Corpuscular Hemoglobin Concent 33.5 G/DL (32.0-36.0) Red Cell Distribution Width 15.8 % (11.6-14.8) H Platelet Count 36 K/UL (150-450) L Mean Platelet Volume 10.0 FL (6.5-10.1) Neutrophils (%) (Auto) % (45.0-75.0) Lymphocytes (%) (Auto) % (20.0-45.0) Monocytes (%) (Auto) % (1.0-10.0) Eosinophils (%) (Auto) % (0.0-3.0) Basophils (%) (Auto) % (0.0-2.0) Neutrophils % (Manual) Pending Lymphocytes % (Manual) Pending Platelet Estimate Pending Platelet Morphology Pending Prothrombin Time 9.9 SEC (9.30-11.50) Prothromb Time International Ratio 1.0 (0.9-1.1) Activated Partial Thromboplast Time 22 SEC (23-33) L Sodium Level 144 mEQ/L (135-145) Potassium Level 3.4 mEQ/L (3.4-4.9) Chloride Level 107 mEQ/L (98-107) Carbon Dioxide Level 24 mEQ/L (20-30) Anion Gap 13 (5-15) Blood Urea Nitrogen 25 mg/dL (7-23) H Creatinine 0.9 mg/dL (0.5-0.9) Estimat Glomerular Filtration Rate mL/min (>60) Glucose Level 102 mg/dL (74-106) Calcium Level 8.4 mg/dL (8.6-10.2) L Phosphorus Level 4.2 mg/dL (2.5-4.8) Magnesium Level 2.2 mg/dL (1.7-2.5) Total Bilirubin 0.6 mg/dL (0.0-1.2) Aspartate Amino Transf (AST/SGOT) 15 U/L (5-40) Alanine Aminotransferase (ALT/SGPT) 10 U/L (3-33) Alkaline Phosphatase 41 U/L (35-104) Total Protein 4.2 g/dL (6.6-8.7) L Albumin 2.7 g/dL (3.5-5.2) L Globulin 1.5 g/dL Albumin/Globulin Ratio 1.8 (1.0-2.7) Height (Feet): 5 Height (Inches): 8.00 Weight (Pounds): 140 General Appearance: no apparent distress, alert Cardiovascular: normal rate Respiratory/Chest: normal breath sounds, no respiratory distress Abdominal Exam: normal bowel sounds, non tender, soft Melissa Marquez N.P. October 10, 2016 10:55
[2016-10-10 12:00] VITALS: BP 122/52
[2016-10-10 12:32] LABS: BAND NEUTROPHILS % (MANUAL) 0 % (0-8); BASOPHILS % (MANUAL) 0 % (0-2); EOSINOPHILS % (MANUAL) 1 % (0-3); LYMPHOCYTES % (MANUAL) 36 % (20-45); NEUTROPHILS % (MANUAL) 53 % (45-75); PLATELET ESTIMATE DECREASED; PLATELET MORPHOLOGY NORMAL; TOTAL CELLS COUNTED 100
[2016-10-10 12:33] LABS: ANISOCYTOSIS 1+; POIKILOCYTOSIS 1+; POLYCHROMASIA 1+
[2016-10-10 12:34] LABS: HYPOCHROMASIA 1+
--- NOTE | 2016-10-10 13:12 | Pulmonology Progress Note ---
Assessment/Plan Problems: (1) Symptomatic anemia (2) MDS (myelodysplastic syndrome) (3) Severe anemia (4) History of hypertension Assessment/Plan Hem evaluation prbc prn stool for OB was positive monitor bp anemia w/u pt/ot med/surg GI f/u Subjective ROS Limited/Unobtainable: No Interval Events: constipated Constitutional: Reports: no symptoms HEENT: Repors: no symptoms Respiratory: Reports: no symptoms Cardiovascular: Reports: no symptoms Allergies: Coded Allergies: No Known Allergies (Unverified , 10/07/16) Objective Last 24 Hour Vital Signs Date Time Temp Pulse Resp B/P Pulse Ox O2 Delivery O2 Flow Rate FiO2 10/10/16 12:00 96.8 58 18 122/52 99 Room Air 10/10/16 08:00 97.5 60 18 129/57 96 Room Air 10/10/16 03:49 98.5 69 19 134/65 96 Room Air 10/09/16 23:53 98.5 84 18 128/52 94 Room Air 10/09/16 20:22 97.8 85 19 123/45 95 Room Air 10/09/16 19:59 Nasal Cannula 2.0 28 10/09/16 19:58 96 Nasal Cannula 2.0 28 10/09/16 15:44 99.3 57 18 123/46 Room Air Intake and Output 10/09/16 10/10/16 19:00 07:00 Intake Total 360 ml Balance 360 ml Intake Oral 360 ml # Voids 4 3 General Appearance: WD/WN HEENT: normocephalic, atraumatic Respiratory/Chest: chest wall non-tender, lungs clear, normal breath sounds Cardiovascular: normal peripheral pulses, normal rate Abdomen: normal bowel sounds, soft, non tender Extremities: no clubbing Skin: no rash 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 grossly normal Lymphatic: no groin adenopathy Laboratory Tests 10/10/16 07:10: White Blood Count 1.4*L, Red Blood Count 3.11L, Hemoglobin 9.2#L, Hematocrit 27.3#L, Mean Corpuscular Volume 88, Mean Corpuscular Hemoglobin 29.5, Mean Corpuscular Hemoglobin Concent 33.5, Red Cell Distribution Width 15.8H, Platelet Count 36L, Mean Platelet Volume 10.0, Neutrophils (%) (Auto) , Lymphocytes (%) (Auto) , Monocytes (%) (Auto) , Eosinophils (%) (Auto) , Basophils (%) (Auto) , Differential Total Cells Counted 100, Neutrophils % ( Manual) 53, Lymphocytes % (Manual) 36, Monocytes % (Manual) 10, Eosinophils % ( Manual) 1, Basophils % (Manual) 0, Band Neutrophils 0, Platelet Estimate DecreasedL, Platelet Morphology Normal, Polychromasia 1+, Hypochromasia 1+, Poikilocytosis 1+, Basophilic Stippling Occasional, Anisocytosis 1+, Prothrombin Time 9.9, Prothromb Time International Ratio 1.0, Activated Partial Thromboplast Time 22L, Sodium Level 144, Potassium Level 3.4, Chloride Level 107 , Carbon Dioxide Level 24, Anion Gap 13, Blood Urea Nitrogen 25H, Creatinine 0.9 , Estimat Glomerular Filtration Rate , Glucose Level 102, Calcium Level 8.4L, Phosphorus Level 4.2, Magnesium Level 2.2, Total Bilirubin 0.6, Aspartate Amino Transf (AST/SGOT) 15, Alanine Aminotransferase (ALT/SGPT) 10, Alkaline Phosphatase 41, Total Protein 4.2L, Albumin 2.7L, Globulin 1.5, Albumin/ Globulin Ratio 1.8 Current Medications Medications (Trade) Dose Ordered Sig/Coby Route PRN Reason Start Time Stop Time Status Last Admin Dose Admin Acetaminophen (Tylenol) 650 mg Q4H PRN ORAL fever 10/07/16 14:30 11/06/16 14:29 Al Hydroxide/Mg Hydroxide (Mylanta II) 30 ml Q6H PRN ORAL dyspepsia 10/07/16 14:30 11/06/16 14:29 Dextrose (Dextrose 50%) STAT PRN IV Hypoglycemia 10/07/16 14:30 11/06/16 14:29 Lorazepam (Ativan 2mg/ml 1ml) 0.5 mg Q4H PRN IV For Anxiety 10/07/16 14:30 10/14/16 14:29 Morphine Sulfate (Morphine Sulfate) 1 mg Q4H PRN IVP SEVERE PAIN 10/07/16 14:30 10/14/16 14:29 Ondansetron HCl (Zofran) 4 mg Q6H PRN IVP Nausea & Vomiting 10/07/16 14:30 11/06/16 14:29 Polyethylene Glycol (Miralax) 17 gm HSPRN PRN ORAL Constipation 5/15/17 14:30 11/06/16 14:29 Zolpidem Tartrate (Ambien) 5 mg HSPRN PRN ORAL Insomnia 10/07/16 14:30 11/06/16 14:29 RM GONZALEZ October 10, 2016 13:12
--- NOTE | 2016-10-10 15:26 | Consultation ---
Consult Note Consult Note HEME CONSULT ANDREWS RUBY: Sadaf DOS: 10/10/16 RFC: Evaluation of MDS, cytopenias ID: 76 year old female with hx of MDS on chemotherapy presented with complaints of dizziness and lightheadedness She was transfused blood last week. Her Hemoglobin was 4 in ER. She is admitted to telemetry for further work up. GI consulted for anemia and positive occult blood. Pt seen on floor, awake A&Ox4 NAD with no active s/sx of bleeding. No general GI complaints by patient. She presents with pancytopenia, hx of MDS and positive occult stool. According to the patient, she's had multiple colonoscopies and upper endoscopies in the past for her anemia with unremarkable results. In addition the patient had undergone a small bowel capsule endoscopy with unremarkable results. The patient stated she was suppose to go to [facility] to have a Small Bowel Double Balloon Endoscopy perform. She apparently is getting treated with chemo at [facility] but cannot confirm this. Home Meds Losartan/Hydrochlorothiazide (LOSARTAN-HCTZ 100-25 MG TAB) 1 Each Tablet, 1 TAB ORAL DAILY, TAB 10/09/16 Oxybutynin Chloride (OXYBUTYNIN CHLORIDE) 5 Mg/5 Ml Syrup, 5 MG PO DAILY, ML 10/09/16 Cholecalciferol (Vitamin D3) (Vitamin D-3) 2,000 Unit Tablet, 1000 UNIT PO, TAB 10/09/16 Potassium Chloride* (K-DUR*) 20 Meq Tab.er.prt, 20 MEQ ORAL DAILY, #7 TAB 0 Refills 10/09/16 Docusate Sodium* (COLACE*) 100 Mg Capsule, 100 MG ORAL DAILY, CAP 10/09/16 Ferrous Sulfate (FERROUS SULFATE) 325 Mg Tablet.dr, 325 MG ORAL DAILY, #30 TAB 0 Refills 10/09/16 Atorvastatin Calcium* (ATORVASTATIN CALCIUM*) 40 Mg Tablet, 40 MG ORAL BEDTIME, TAB 10/09/16 Amiodarone Hcl (AMIODARONE HCL) 100 Mg Tablet, 200 MG ORAL DAILY, TAB 10/09/16 Unable to Obtain Medications (UNABLE TO OBTAIN MEDS) 1 Ea Ea 10/07/16 Med list reviewed/reconciled: Yes Allergies: No Known Allergies (Unverified , 10/07/16) PMHx (1) Severe anemia (2) MDS (myelodysplastic syndrome) Social History: Denies: alcohol use, drug use, other, smoking ROS: Constitutional: No fever, no chills, no night sweats, no fatigue Skin: No rashes, lumps, itchiness, dryness HEENT: No HEARD, ear ache, visual changes, double vision, nosebleeds, sore throat, lumps, swollen glands Breasts: No lumps, pain, discharge Pulmonary: No cough, sputum, shortness of breath, coughing up blood, hemoptysis Cardiovascular: No chest pain, tightness, palpitations, syncope, claudication, orthopnea, PND GI: No nausea, vomiting, diarrhea, melena, hematochezia, change in appetite, abdominal pain : No dysuria, frequency, urgency, urinary incontinence, foamy urine PE: Vital Signs Last 24 Hour Vital Signs Date Time Temp Pulse Resp B/P Pulse Ox O2 Delivery O2 Flow Rate FiO2 10/10/16 12:00 96.8 58 18 122/52 99 Room Air 10/10/16 08:00 97.5 60 18 129/57 96 Room Air 10/10/16 03:49 98.5 69 19 134/65 96 Room Air 10/09/16 23:53 98.5 84 18 128/52 94 Room Air 10/09/16 20:22 97.8 85 19 123/45 95 Room Air 10/09/16 19:59 Nasal Cannula 2.0 28 10/09/16 19:58 96 Nasal Cannula 2.0 28 10/09/16 15:44 99.3 57 18 123/46 Room Air PE: General Appearance: A+O x3, NAD Skin: no rashes, itching HEENT: normocephalic, atraumatic Respiratory/Chest: chest wall non-tender, lungs clear Cardiovascular/Chest: normal peripheral pulses, normal rate Abdomen: normal bowel sounds, non tender Extremities: normal range of motion Labs: Test 10/09/16 07:10 10/09/16 07:30 White Blood Count 1.6 K/UL (4.8-10.8) *L Red Blood Count 2.38 M/UL (4.20-5.40) L Hemoglobin 6.8 G/DL (12.0-16.0) *L Hematocrit 20.7 % (37.0-47.0) L Mean Corpuscular Volume 87 FL (80-99) Mean Corpuscular Hemoglobin 28.8 PG (27.0-31.0) Mean Corpuscular Hemoglobin Concent 33.1 G/DL (32.0-36.0) Red Cell Distribution Width 16.4 % (11.6-14.8) H Platelet Count 31 K/UL (150-450) L Mean Platelet Volume 8.8 FL (6.5-10.1) Neutrophils (%) (Auto) % (45.0-75.0) Lymphocytes (%) (Auto) % (20.0-45.0) Monocytes (%) (Auto) % (1.0-10.0) Eosinophils (%) (Auto) % (0.0-3.0) Basophils (%) (Auto) % (0.0-2.0) Differential Total Cells Counted 100 Neutrophils % (Manual) 57 % (45-75) Lymphocytes % (Manual) 38 % (20-45) Monocytes % (Manual) 2 % (1-10) Eosinophils % (Manual) 1 % (0-3) Basophils % (Manual) 1 % (0-2) Band Neutrophils 1 % (0-8) Nucleated Red Blood Cells 2 /100 WBC Platelet Estimate Decreased L Platelet Morphology Normal Polychromasia 1+ Hypochromasia 1+ Basophilic Stippling Occasional Anisocytosis 1+ Prothrombin Time 10.0 SEC (9.30-11.50) Prothromb Time International Ratio 1.0 (0.9-1.1) Activated Partial Thromboplast Time 21 SEC (23-33) L Sodium Level 140 mEQ/L (135-145) Potassium Level 3.7 mEQ/L (3.4-4.9) Chloride Level 105 mEQ/L (98-107) Carbon Dioxide Level 24 mEQ/L (20-30) Anion Gap 11 (5-15) Blood Urea Nitrogen 36 mg/dL (7-23) H Creatinine 1.0 mg/dL (0.5-0.9) H Estimat Glomerular Filtration Rate mL/min (>60) Glucose Level 109 mg/dL (74-106) H Calcium Level 8.2 mg/dL (8.6-10.2) L Phosphorus Level 3.3 mg/dL (2.5-4.8) Magnesium Level 2.2 mg/dL (1.7-2.5) Total Bilirubin 0.4 mg/dL (0.0-1.2) Aspartate Amino Transf (AST/SGOT) 11 U/L (5-40) Alanine Aminotransferase (ALT/SGPT) 8 U/L (3-33) Alkaline Phosphatase 35 U/L (35-104) Total Protein 4.0 g/dL (6.6-8.7) L Albumin 2.4 g/dL (3.5-5.2) L Globulin 1.6 g/dL Albumin/Globulin Ratio 1.5 (1.0-2.7) Stool Occult Blood Positive (NEGATIVE) Current Medications Medications (Trade) Dose Ordered Sig/Coby Route PRN Reason Start Time Stop Time Status Last Admin Dose Admin Acetaminophen (Tylenol) 650 mg Q4H PRN ORAL fever 10/07/16 14:30 11/06/16 14:29 Al Hydroxide/Mg Hydroxide (Mylanta II) 30 ml Q6H PRN ORAL dyspepsia 10/07/16 14:30 11/06/16 14:29 Dextrose (Dextrose 50%) STAT PRN IV Hypoglycemia 10/07/16 14:30 11/06/16 14:29 Lorazepam (Ativan 2mg/ml 1ml) 0.5 mg Q4H PRN IV For Anxiety 10/07/16 14:30 10/14/16 14:29 Morphine Sulfate (Morphine Sulfate) 1 mg Q4H PRN IVP SEVERE PAIN 10/07/16 14:30 10/14/16 14:29 Ondansetron HCl (Zofran) 4 mg Q6H PRN IVP Nausea & Vomiting 10/07/16 14:30 11/06/16 14:29 Polyethylene Glycol (Miralax) 17 gm HSPRN PRN ORAL Constipation 10/07/16 14:30 11/06/16 14:29 Zolpidem Tartrate (Ambien) 5 mg HSPRN PRN ORAL Insomnia 10/07/16 14:30 11/06/16 14:29 Assessment and Recs: # Pancytopenia - is likely related to myelodysplastic syndrome, at this time attempting to confirm which treatment she is on for MDS, will request medical records, have placed order for this. Does not appear to be transforming to AML/ ALL, at this time, recommend to keep hgb >7, plt count 20k and will rule out DIC # Severe anemia - secondary to MDS # Anemia rule out GI bleed, eval with GI team # MDS (myelodysplastic syndrome) # Neutropenia - neutropenic precuations, give one dose of neupogen sq # History of hypertension # Symptomatic anemia Jeison Doe October 10, 2016 15:26
[2016-10-10 16:00] VITALS: BP 136/64
[2016-10-10] MEDS ORDERED: TBO-Filgrastim 300 mcg/0.5ml SQ ONE ×2 (17:00→18:00)
[2016-10-10] MEDS ORDERED: Zolpidem 5mg tab ORAL PRN (18:00)
[2016-10-10] MEDS ORDERED: Morphine Sulfate 2mg/ml Inj IVP PRN (18:00)
[2016-10-10] MEDS ORDERED: LORazepam Inj 2mg/ml 1ml IV PRN (18:00)
[2016-10-10] MEDS ORDERED: Mylanta II UD 30ml ORAL PRN (18:00)
[2016-10-10 20:00] VITALS: BP 119/40
[2016-10-11] VITALS: BP 152/60
[2016-10-11 04:00] VITALS: BP 108/92
[2016-10-11 07:09] LABS: MEAN CORPUSCULAR HEMOGLOBIN 29.6 PG (27.0-31.0); MEAN CORPUSCULAR HGB CONC 32.7 G/DL (32.0-36.0); MEAN CORPUSCULAR VOLUME 91 FL (80-99); PLATELET COUNT 36 K/UL (150-450); RED BLOOD COUNT 3.09 M/UL (4.20-5.40); RED CELL DISTRIBUTION WIDTH 17.6 % (11.6-14.8); WHITE BLOOD COUNT 7.2 K/UL (4.8-10.8)
[2016-10-11 08:06] LABS: ANION GAP 15 (5-15); CALCIUM 8.7 mg/dL (8.6-10.2); CARBON DIOXIDE 22 mEQ/L (20-30); CHLORIDE 103 mEQ/L (98-107); HEMOLYSIS 7; SODIUM 140 mEQ/L (135-145)
[2016-10-11 08:15] VITALS: BP 133/51
--- NOTE | 2016-10-11 09:43 | Pulmonology Progress Note ---
Assessment/Plan Assessment/Plan ASSESSMENT pancytopenia myelodysplastic syndrome severe anemia s/p blood transfusion symptomatic anemia neutropenia hx of HTN dehydration hypokalemia hx of left breast CA PLAN OF CARE MS floor IVF heme and GI follow per heme transfuse prn to keep Hgb above 7 and PLT count above 20 HH stable after transfusion fibrinogen level WNL venous Duplex BLE negative WBC up to 7.2 off neutropenic precautions s/p Neupogen, closely monitor HH and transfuse as needed stool OB + x2 GI procedures on hold ; per GI consider colonoscopy if stable counts on Friday per patient had EGD, colon, EUS 2 yrs ago, negative continue PPI O2 HHN prn CXR negative BUN down to normal, creta stable, azotemia was likely due to dehydration renal US negative replace K, check K and Mg in am BP stable without any anti HTN meds, monitor clsoely PT/OT pain management diet as tolerated antiemetic prn dc plan fup with outpt special procedure technologist on Friday for Procrit injections case discussed and evaluated by supervising physician Subjective Allergies: Coded Allergies: No Known Allergies (Unverified , 10/07/16) Subjective on RA no SOB no chest pain WBC up to 7.2 Objective Last 24 Hour Vital Signs Date Time Temp Pulse Resp B/P Pulse Ox O2 Delivery O2 Flow Rate FiO2 10/11/16 08:15 97.6 61 19 133/51 96 Room Air 10/11/16 04:00 97.7 59 20 108/92 95 Room Air 10/11/16 00:00 98.1 60 20 152/60 99 Room Air 10/10/16 20:00 97.9 57 20 119/40 96 Room Air 10/10/16 19:35 Nasal Cannula 2.0 28 10/10/16 19:35 96 Nasal Cannula 2.0 28 10/10/16 16:00 97.4 58 18 136/64 94 Room Air 10/10/16 12:00 96.8 58 18 122/52 99 Room Air Intake and Output 10/10/16 10/11/16 19:00 07:00 Intake Total 240 ml Balance 240 ml Intake Oral 240 ml # Voids 3 # Bowel Movements 1 General Appearance: no acute distress HEENT: normocephalic, atraumatic, anicteric, mucous membranes moist, other - O2 via NC Respiratory/Chest: lungs clear, no respiratory distress, no accessory muscle use Cardiovascular: normal peripheral pulses, normal rate, no JVD Abdomen: normal bowel sounds, soft, non tender Genitourinary: normal external genitalia Extremities: no edema, pedal pulses normal Neurologic/Psychiatric: no motor/sensory deficits, alert, oriented x 3, responsive Musculoskeletal: normal muscle bulk Laboratory Tests 10/10/16 16:10: Haptoglobin 94, Fibrinogen 337, Vitamin B12 Level 416 10/10/16 21:20: Stool Occult Blood Positive 10/11/16 04:50: White Blood Count 7.2#, Red Blood Count 3.09L, Hemoglobin 9.1L, Hematocrit 28.0L , Mean Corpuscular Volume 91, Mean Corpuscular Hemoglobin 29.6, Mean Corpuscular Hemoglobin Concent 32.7, Red Cell Distribution Width 17.6H, Platelet Count 36L, Mean Platelet Volume 10.0, Neutrophils (%) (Auto) , Lymphocytes (%) (Auto) , Monocytes (%) (Auto) , Eosinophils (%) (Auto) , Basophils (%) (Auto) , Neutrophils % (Manual) [Pending], Lymphocytes % (Manual) [Pending], Platelet Estimate [Pending], Platelet Morphology [Pending], Sodium Level 140, Potassium Level 3.0L, Chloride Level 103, Carbon Dioxide Level 22, Anion Gap 15, Blood Urea Nitrogen 18, Creatinine 1.0H, Estimat Glomerular Filtration Rate , Glucose Level 84, Calcium Level 8.7 Current Medications Medications (Trade) Dose Ordered Sig/Coby Route PRN Reason Start Time Stop Time Status Last Admin Dose Admin Acetaminophen (Tylenol) 650 mg Q4H PRN ORAL fever 10/10/16 18:00 11/09/16 17:59 10/11/16 00:54 Al Hydroxide/Mg Hydroxide (Mylanta II) 30 ml Q6H PRN ORAL dyspepsia 10/10/16 18:00 11/09/16 17:59 Dextrose (Dextrose 50%) STAT PRN IV Hypoglycemia 10/10/16 18:00 11/09/16 17:59 Lorazepam (Ativan 2mg/ml 1ml) 0.5 mg Q4H PRN IV For Anxiety 10/10/16 18:00 10/17/16 17:59 Morphine Sulfate (Morphine Sulfate) 1 mg Q4H PRN IVP SEVERE PAIN 10/10/16 18:00 10/17/16 17:59 Ondansetron HCl (Zofran) 4 mg Q6H PRN IVP Nausea & Vomiting 10/10/16 18:00 11/09/16 17:59 Polyethylene Glycol (Miralax) 17 gm HSPRN PRN ORAL Constipation 10/11/16 18:00 11/10/16 17:59 Zolpidem Tartrate (Ambien) 5 mg HSPRN PRN ORAL Insomnia 10/10/16 18:00 11/09/16 17:59 Sosa Dewey NP (Vanchtein) October 11, 2016 09:43
[2016-10-11] MEDS ORDERED: KCl 10% 40mEq/30ml liquid NG ONE (10:00)
--- NOTE | 2016-10-11 10:19 | GI Progress Note ---
Assessment/Plan Problems: (1) Pancytopenia ICD Codes: D61.818 - Other pancytopenia SNOMED: 406897600 (2) Severe anemia ICD Codes: D64.9 - Anemia, unspecified SNOMED: 845485684 (3) MDS (myelodysplastic syndrome) ICD Codes: D46.9 - Myelodysplastic syndrome, unspecified SNOMED: 854698931 (4) Symptomatic anemia ICD Codes: D64.9 - Anemia, unspecified SNOMED: 284895089 Status: progressing Status Narrative Discussed with Dr. Garcia. Assessment/Plan OB stool positive x 2 elevated iron levels neutropenic precautions will consider EGD/colonoscopy friday if white count stable fu heme/onc regular diet monitor H&H, transfuse prn Hgb < 8.0 ppi fu labs The patient was seen and examined at bedside and all new and available data was reviewed in the patients chart. I agree with the above findings, impression and plan. (Patient seen earlier today. Signature stamp does not reflect patient encounter time.). -Yang Garcia MD Subjective Gastrointestinal/Abdominal: Reports: no symptoms Objective Last 24 Hour Vital Signs Date Time Temp Pulse Resp B/P Pulse Ox O2 Delivery O2 Flow Rate FiO2 10/11/16 08:15 97.6 61 19 133/51 96 Room Air 10/11/16 04:00 97.7 59 20 108/92 95 Room Air 10/11/16 00:00 98.1 60 20 152/60 99 Room Air 10/10/16 20:00 97.9 57 20 119/40 96 Room Air 10/10/16 19:35 Nasal Cannula 2.0 28 10/10/16 19:35 96 Nasal Cannula 2.0 28 10/10/16 16:00 97.4 58 18 136/64 94 Room Air 10/10/16 12:00 96.8 58 18 122/52 99 Room Air Intake and Output 10/10/16 10/11/16 19:00 07:00 Intake Total 240 ml Balance 240 ml Intake Oral 240 ml # Voids 3 # Bowel Movements 1 Laboratory Tests Test 10/10/16 16:10 10/10/16 21:20 10/11/16 04:50 Haptoglobin 94 mg/dL (30-200) Fibrinogen 337 mg/dL (200-400) Vitamin B12 Level 416 pg/mL (211-946) Stool Occult Blood Positive (NEGATIVE) White Blood Count 7.2 K/UL (4.8-10.8) # Red Blood Count 3.09 M/UL (4.20-5.40) L Hemoglobin 9.1 G/DL (12.0-16.0) L Hematocrit 28.0 % (37.0-47.0) L Mean Corpuscular Volume 91 FL (80-99) Mean Corpuscular Hemoglobin 29.6 PG (27.0-31.0) Mean Corpuscular Hemoglobin Concent 32.7 G/DL (32.0-36.0) Red Cell Distribution Width 17.6 % (11.6-14.8) H Platelet Count 36 K/UL (150-450) L Mean Platelet Volume 10.0 FL (6.5-10.1) Neutrophils (%) (Auto) % (45.0-75.0) Lymphocytes (%) (Auto) % (20.0-45.0) Monocytes (%) (Auto) % (1.0-10.0) Eosinophils (%) (Auto) % (0.0-3.0) Basophils (%) (Auto) % (0.0-2.0) Neutrophils % (Manual) Pending Lymphocytes % (Manual) Pending Platelet Estimate Pending Platelet Morphology Pending Sodium Level 140 mEQ/L (135-145) Potassium Level 3.0 mEQ/L (3.4-4.9) L Chloride Level 103 mEQ/L (98-107) Carbon Dioxide Level 22 mEQ/L (20-30) Anion Gap 15 (5-15) Blood Urea Nitrogen 18 mg/dL (7-23) Creatinine 1.0 mg/dL (0.5-0.9) H Estimat Glomerular Filtration Rate mL/min (>60) Glucose Level 84 mg/dL (74-106) Calcium Level 8.7 mg/dL (8.6-10.2) Height (Feet): 5 Height (Inches): 8.00 Weight (Pounds): 140 General Appearance: no apparent distress, alert Cardiovascular: normal rate Respiratory/Chest: normal breath sounds, no respiratory distress Abdominal Exam: normal bowel sounds, non tender, soft Melissa Marquez N.PIlan October 11, 2016 10:19 YANG GARCIA October 14, 2016 08:10
[2016-10-11 10:43] LABS: BAND NEUTROPHILS % (MANUAL) 7 % (0-8); BASOPHILS % (MANUAL) 1 % (0-2); EOSINOPHILS % (MANUAL) 1 % (0-3); LYMPHOCYTES % (MANUAL) 24 % (20-45); NEUTROPHILS % (MANUAL) 61 % (45-75); PLATELET ESTIMATE DECREASED; PLATELET MORPHOLOGY NORMAL; TOTAL CELLS COUNTED 100
[2016-10-11 10:44] LABS: ANISOCYTOSIS 1+; POLYCHROMASIA 1+
[2016-10-11 10:45] LABS: HYPOCHROMASIA 1+
[2016-10-11 12:15] VITALS: BP 107/55
[2016-10-11] MEDS ORDERED: Tubing IV Blood Pump IV ONE (15:33)
[2016-10-11 16:13] VITALS: BP 121/59
[2016-10-11] MEDS ORDERED: Miralax 17gm pkt ORAL PRN (18:00)
--- NOTE | 2016-10-11 18:37 | General Progress Note ---
Assessment/Plan Assessment/Plan Assessment and Recs: # Pancytopenia - is likely related to myelodysplastic syndrome, at this time attempting to confirm which treatment she is on for MDS, will request medical records, have placed order for this. Does not appear to be transforming to AML/ ALL, at this time, recommend to keep hgb >7, plt count 20k and will rule out DIC , patient to follow up as outpatient in clinic with me # Severe anemia - secondary to MDS # Anemia rule out GI bleed, eval with GI team # MDS (myelodysplastic syndrome) # Neutropenia - neutropenic precuations, give one dose of neupogen sq # History of hypertension # Symptomatic anemia Subjective Constitutional: Reports: no symptoms HEENT: Reports: no symptoms Cardiovascular: Reports: no symptoms Respiratory: Reports: no symptoms Gastrointestinal/Abdominal: Reports: no symptoms Genitourinary: Reports: no symptoms Neurologic/Psychiatric: Reports: no symptoms Endocrine: Reports: no symptoms Hematologic/Lymphatic: Reports: anemia Allergies: Coded Allergies: No Known Allergies (Unverified , 10/07/16) Subjective NAD, will fu as outpatient Tues Objective Last 24 Hour Vital Signs Date Time Temp Pulse Resp B/P Pulse Ox O2 Delivery O2 Flow Rate FiO2 10/11/16 16:13 97.3 63 20 121/59 96 Room Air 10/11/16 12:15 98.1 62 20 107/55 97 Room Air 10/11/16 08:15 97.6 61 19 133/51 96 Room Air 10/11/16 04:00 97.7 59 20 108/92 95 Room Air 10/11/16 00:00 98.1 60 20 152/60 99 Room Air 10/10/16 20:00 97.9 57 20 119/40 96 Room Air 10/10/16 19:35 Nasal Cannula 2.0 28 10/10/16 19:35 96 Nasal Cannula 2.0 28 Intake and Output 10/10/16 10/11/16 19:00 07:00 Intake Total 240 ml Balance 240 ml Intake Oral 240 ml # Voids 3 # Bowel Movements 1 Laboratory Tests 10/10/16 21:20: Stool Occult Blood Positive 10/11/16 04:50: White Blood Count 7.2#, Red Blood Count 3.09L, Hemoglobin 9.1L, Hematocrit 28.0L , Mean Corpuscular Volume 91, Mean Corpuscular Hemoglobin 29.6, Mean Corpuscular Hemoglobin Concent 32.7, Red Cell Distribution Width 17.6H, Platelet Count 36L, Mean Platelet Volume 10.0, Neutrophils (%) (Auto) , Lymphocytes (%) (Auto) , Monocytes (%) (Auto) , Eosinophils (%) (Auto) , Basophils (%) (Auto) , Differential Total Cells Counted 100, Neutrophils % ( Manual) 61, Lymphocytes % (Manual) 24, Monocytes % (Manual) 6, Eosinophils % ( Manual) 1, Basophils % (Manual) 1, Band Neutrophils 7, Platelet Estimate DecreasedL, Platelet Morphology Normal, Polychromasia 1+, Hypochromasia 1+, Anisocytosis 1+, Sodium Level 140, Potassium Level 3.0L, Chloride Level 103, Carbon Dioxide Level 22, Anion Gap 15, Blood Urea Nitrogen 18, Creatinine 1.0H, Estimat Glomerular Filtration Rate , Glucose Level 84, Calcium Level 8.7 Height (Feet): 5 Height (Inches): 8.00 Weight (Pounds): 140 General Appearance: WD/WN EENT: PERRL/EOMI Neck: non-tender Cardiovascular: normal peripheral pulses Respiratory/Chest: chest wall non-tender Abdomen: normal bowel sounds Edema: no edema noted Leg (L), no edema noted Leg (R) 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
--- NOTE | 2016-10-14 11:45 | Discharge Summary ---
Discharge Summary Hospital Course Date of Admission October 07, 2016 at 12:59 Date of Discharge October 11, 2016 at 17:00 Admitting Diagnosis symptomatic anemia HPI Rama Boo is a 76 year old female who was admitted on October 07, 2016 at 12: 59 for Symptomatic Anemia Hospital Course dc summary #[id number] Discharge Medications Continued Medications: Amiodarone Hcl (Amiodarone Hcl) 100 Mg Tablet 200 MG ORAL DAILY, TAB Atorvastatin Calcium* (Atorvastatin Calcium*) 40 Mg Tablet 40 MG ORAL BEDTIME, TAB Cholecalciferol (Vitamin D3) (Vitamin D-3) 2,000 Unit Tablet 1000 UNIT PO, TAB Docusate Sodium* (Colace*) 100 Mg Capsule 100 MG ORAL DAILY, CAP Ferrous Sulfate (Ferrous Sulfate) 325 Mg Tablet.dr 325 MG ORAL DAILY, #30 TAB 0 Refills Losartan/Hydrochlorothiazide (Losartan-Hctz 100-25 Mg Tab) 1 Each Tablet 1 TAB ORAL DAILY, TAB Oxybutynin Chloride (Oxybutynin Chloride) 5 Mg/5 Ml Syrup 5 MG PO DAILY, ML Potassium Chloride* (K-Dur*) 20 Meq Tab.er.prt 20 MEQ ORAL DAILY, #7 TAB 0 Refills Unable to Obtain Medications (Unable To Obtain Meds) 1 Ea Ea Discharge Condition Upon Discharge: stable Discharge Disposition Patient was discharged to Home (01) Discharge Diagnoses: Maco (Sosa Estrada NP October 14, 2016 11:45
--- NOTE | 2016-10-15 00:45 | Discharge Summary 2 SIG ---
DATE OF ADMISSION: 10/07/2016 DATE OF DISCHARGE: 10/11/2016 The patient was admitted under Dr. Talavera. REASON FOR ADMISSION: The patient is a 76-year-old female, with a history of myelodysplastic syndrome, on chemotherapy, presented with complaints of dizziness and lightheadedness. The patient was transfused blood last week. She denied any tarry stools. She denies any tati blood in the stool. She denies any vomiting of blood. There is no back or flank pain. No headache. No chest pain. No shortness of breath. The patient did complain with dizziness and lightheadedness, which is worse with standing and ambulation. Workup in the emergency room revealed the patient was afebrile and vital signs were stable. White blood count was 3.0, hemoglobin was 4.0, hematocrit 12.7, and platelets 53,000. The patient was admitted for severe symptomatic anemia. In addition, her potassium was 3.5, her BUN was 50, and creatinine 1.2. Troponin was negative. LFT's stable. Reticulocyte count was 8%. Urinalysis was negative. ADMITTING DIAGNOSES: Includes, 1. Severe symptomatic anemia. 2. Myelodysplastic syndrome. HOSPITAL STAY: The patient was admitted. The patient undergone blood transfusion. Hematology and GI consult were requested. The patient received a total of 7 units of packed red blood cells. Prior to discharge, hemoglobin is 9.1 with hematocrit 98 and platelets 36,000. Next day after admission on 10/08/2016, noted WBC to be 1.8. The patient was started on Neupogen and maintained on neutropenic precaution. Pumper Gauger followed. Intravenous fluids provided. Per director nurses' registry, transfuse to keep hemoglobin above 7 and platelet count above 20. Again as mentioned above, hemoglobin and hematocrit are stable after transfusion. Fibrinogen level within normal limits. Venous duplex of bilateral lower extremity is negative. The patient off neutropenic precaution. On day of discharge, WBC 7.2 and status post Neupogen. Hemoglobin and hematocrit were closely monitored. Supplemental oxygen and pulmonary toilet provided as needed. Pulse oximetry stable on the room air. Stool OB positive x2. However, gastrointestinal procedure on hold. Per Gastrointestinal, consider colonoscopy. Stable counts on . The patient had esophagogastroduodenoscopy, colonoscopy, and EUS two years ago, which was negative. She preferred to have procedure with her primary medical doctor and declined on any GI workup at this admission. The patient was on PPI. Chest x-ray is negative. BUN down to normal. Creatinine stable. Azotemia resolved, was likely secondary to dehydration. Renal ultrasound was negative. Potassium replaced. Blood pressure was stable without any antihypertensive medication. The patient was working with the physical and occupational therapy. The patient was able to tolerate diet. Pain management provided. Antiemetic provided as needed. The patient was stable for discharge home. Follow up on Friday as outpatient with director nurses' registry for Procrit injection. Pumper Gauger and GI both cleared the patient for discharge. DISCHARGE DIAGNOSES: Includes, 1. Myelodysplastic syndrome. 2. Pancytopenia. 3. Severe symptomatic anemia, status post blood transfusion. 4. Neutropenia, resolved. 5. History of hypertension. 6. Dehydration, resolved. 7. Hypokalemia. 8. History of left breast cancer. DISCHARGE MEDICATIONS: See medication reconciliation list. DISCHARGE INSTRUCTIONS: The patient to follow up with the primary medical doctor on Friday and to follow up with the director nurses' registry for Procrit injections in. Whitney Talavera M.D. I have been assigned to dictate discharge summary on this account and I was not involved in the patient's management. Sosa Carusoc[facility] island hospitalUvaldo N.PIlan DR: ZULY JOB#: [id number] CC:
== END 2016-10-11 17:00 | disposition home or self-care (01) | DRG 810 ==
LOC: EDBD 11:20 → EDBEDREQ 12:15 → EMR 12:51 → 2E 12:59 → EDBEDREQ 17:27 → 4W 10-10 16:41
PROC: 30233N1 Transfusion of Nonautologous Red Blood Cells into Peripheral Vein, Percutaneous Approach (ICD-10-PCS; principal; 2016-10-07)
DX: D61.818 Other pancytopenia (principal); E86.0 Dehydration; D46.9 Myelodysplastic syndrome, unspecified; I10 Essential (primary) hypertension; Z79.899 Other long term (current) drug therapy; Z85.3 Personal history of malignant neoplasm of breast
CPT/HCPCS: 36415; 71010; 76775; 80048; 80053; 81001; 82270; 82378; 82436; 82550; 82553; 82607; 82728; 82746; 83010; 83540; 83550; 83615; 83735; 84100; 84133; 84300; 84439; 84443; 84481; 84484; 84550; 85007; 85025; 85044; 85060; 85384; 85610; 85651; 85730; 86850; 86900; 86901; 86920; 87081; 89050; 93005; 93970; 94760

== ENCOUNTER 2018-03-03 09:05 | Inpatient (IN) | payer MEDICARE ==
[~2018-03-03] VITALS: Ht 160 cm; Wt 89.8 kg
[~2018-03-03 09:05] MED LIST: AMIODARONE HCL100 MG ORAL; ATORVASTATIN CA40 MG ORAL; COLACE100 MG ORAL; FERROUS SULFAT325 M2 ORAL; LOSARTAN-HCTZ1 EAC1 ORAL; OXYBUTYNIN5 MG/5 M1 PO; POTASSIUM CHLO20 ME1 ORAL; UNOBMED; VITAMIN D-32000 UNI2 PO
[2018-03-03] MEDS ORDERED: Sodium Chloride 500ML 500 ML IV ONE (09:14)
--- NOTE | 2018-03-03 09:23 | Emergency Room Report ---
History of Present Illness General Chief Complaint: Dizziness Source: Patient Present Illness HPI 77-year-old female with history of hypertension, blood cancer of unknown specificity, and subsequent anemia for which she gets weekly transfusions presents with a possible syncopal episode versus fall. 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 Patient does not recollect how she got to the ground, and she does feel little confused, although she is alert oriented to person place and situation, but has difficulty with identifying the year. She denies any pain complaints, she reports her doctor is out of town this week so she missed her usual transfusion, and she denies any bleeding anywhere such as rectal bleeding, dark stools, hematuria. She reports that the anemia is part of her cancer, and she can't recall the exact type of cancer she has. She does agree to receive a blood transfusion here, understanding the risks and benefits, since she gets them regularly. Allergies: Coded Allergies: No Known Allergies (Unverified , 10/07/16) Patient History Past Medical History: see triage record Reviewed Nursing Documentation: PMH: Agreed; PSxH: Agreed Nursing Documentation-PMH Past Medical History: No History, Except For Hx Cardiac Problems: Yes Hx Hypertension: Yes Hx Cancer: Yes - Blood Ca Hx Gastrointestinal Problems: No Hx Neurological Problems: No Review of Systems All Other Systems: negative except mentioned in HPI Physical Exam Vital Signs Date Time Temp Pulse Resp B/P (MAP) Pulse Ox O2 Delivery O2 Flow Rate FiO2 03/03/18 09:05 97.9 90 16 136/64 92 Room Air 97.9 Sp02 EP Interpretation: reviewed, normal General Appearance: alert, mild distress, Chronically Ill Head: normocephalic Eyes: bilateral eye normal inspection, bilateral eye PERRL, bilateral eye EOMI , bilateral eye other - Pallor ENT: normal ENT inspection, hearing grossly normal, normal pharynx, no angioedema, normal voice, moist mucus membranes Neck: normal inspection, full range of motion, supple, no bony tend, supple/ symm/no masses Respiratory: chest non-tender, lungs clear, normal breath sounds, no rhonchi, no respiratory distress, no retraction, no accessory muscle use, chest symmetrical, palpation of chest normal Cardiovascular #1: normal peripheral pulses, regular rate, rhythm, JVD, systolic murmur Cardiovascular #2: 2+ radial (R), 2+ radial (L) Gastrointestinal: normal inspection, non tender, soft, no mass, no guarding, no rebound Rectal: deferred Genitourinary: normal inspection, no CVA tenderness Musculoskeletal: normal inspection, back normal, gait/station normal, normal range of motion, non-tender, no calf tenderness, Faby's Sign negative Neurologic: alert, responsive, rn clinical trials III-XII nml as tested, motor strength/tone normal, sensory intact, speech normal Psychiatric: judgement/insight normal, memory normal, mood/affect normal Skin: normal color, no rash, normal turgor, pallor Lymphatic: no adenopathy Medical Decision Making Diagnostic Impression: Primary Impression: Symptomatic anemia ER Course patient with chronic anemia, no history of GI Bleeding, will be admitted for transfusion, CT head with no acute dz, clinical exam otherwise normal EKG Diagnostic Results EKG Time: 09:08 EP Interpretation: No ST-T segment changes, T-wave inversions in V1 through V3 , right bundle b Rate: normal Rhythm: NSR ST Segments: no acute changes ASA given to the pt in ED: No Rhythm Strip Diag. Results Rhythm Strip Time: 09:22 EP Interpretation: yes Rate: 89 Rhythm: NSR, no PVC's, no ectopy Chest X-Ray Diagnostic Results Chest X-Ray Diagnostic Results : # of Views/Limited/Complete: 1 View EP Interpretation: Yes Interpretation: no consolidation, no effusion, no pneumothorax, no acute cardiopulmonary disease Impression: No acute disease Electronically Signed by: Rei Hughes MD Last Vital Signs Date Time Temp Pulse Resp B/P (MAP) Pulse Ox O2 Delivery O2 Flow Rate FiO2 03/03/18 09:05 97.9 90 16 136/64 92 Room Air 97.9 Disposition: ADMITTED INPATIENT Condition: Stable REI HUGHES M.D Mar 03, 2018 09:23
[2018-03-03 09:26] VITALS: BP 128/43
[2018-03-03 09:34] LABS: HEMATOCRIT 13.8 % (37.0-47.0); MEAN CORPUSCULAR VOLUME 101 FL (80-99); PLATELET COUNT 169 K/UL (150-450); RED BLOOD COUNT 1.37 M/UL (4.20-5.40); RED CELL DISTRIBUTION WIDTH 20.9 % (11.6-14.8); WHITE BLOOD COUNT 3.7 K/UL (4.8-10.8)
[2018-03-03 09:41] LABS: ANION GAP 15 mmol/L (5-15); BLOOD UREA NITROGEN 66 mg/dL (7-18); CARBON DIOXIDE 19 MMOL/L (21-32); CHLORIDE 108 MMOL/L (98-107); CREATININE 1.7 MG/DL (0.55-1.30); POTASSIUM 3.6 MMOL/L (3.5-5.1); SODIUM 141 MMOL/L (136-145)
[2018-03-03 09:44] LABS: ALANINE AMINOTRANSFERASE 18 U/L (12-78); ALBUMIN 2.9 G/DL (3.4-5.0); ALBUMIN/GLOBULIN RATIO 1.1 (1.0-2.7); ALKALINE PHOSPHATASE 43 U/L (46-116); ASPARTATE AMINO TRANSFERASE 16 U/L (15-37); BILIRUBIN,TOTAL 0.2 MG/DL (0.2-1.0)
--- NOTE | 2018-03-03 10:13 | Diagnostic Imaging Report ---
Indication: Headache. Head trauma Technique: Contiguous 5 mm thick transaxial imaging of the head obtained in a Siemens Sensation [address] scanner. Soft tissue and bone windows generated. Automatic Exposure Control was utilized. Total Dose length Product (DLP): 1435.[address] Dose Index Volume (CTDIvol): 70.38 mGy Comparison: none Findings: There is moderate prominence of the ventricles, basal cisterns, and cerebral sulci consistent with atrophy. Moderate, nonspecific, white matter hypoattenuation is noted throughout the brain consistent with chronic small vessel disease. There is no midline shift, edema, acute hemorrhage, mass effect, or abnormal extra-axial fluid collections. Bones and extra osseous soft tissues are unremarkable. Impression: No acute intracranial bleed, mass effect or edema. Moderate atrophy of the brain. Evidence of chronic small vessel disease involving white matter tracts. The CT scanner at [facility] is accredited by the [employer] [place] and the scans are performed using dose optimization techniques as appropriate to a performed exam including Automatic Exposure control.
[2018-03-03 10:29] LABS: APPEARANCE,URINE CLEAR; BILIRUBIN, URINE NEGATIVE (NEGATIVE); COLOR,URINE PALE YELLOW; GLUCOSE, URINE (UA) NEGATIVE (NEGATIVE); KETONES,URINE NEGATIVE (NEGATIVE); LEUKOCYTE ESTERASE ,URINE NEGATIVE (NEGATIVE); NITRITE,URINE NEGATIVE (NEGATIVE); PH,URINE 5 (4.5-8.0); PROTEIN,URINE NEGATIVE (NEGATIVE); UROBILINOGEN,URINE NORMAL MG/DL (0.0-1.0)
--- NOTE | 2018-03-03 10:58 | Diagnostic Imaging Report ---
Indication: Dyspnea Comparison: 10/07/2016 A single view chest radiograph was obtained. Findings: Mild interstitial edema/pulmonary vascular congestion suspected with mild cardiomegaly noted. Bones are osteopenic. IMPRESSION: Suspected mild CHF
[2018-03-03 11:00] VITALS: BP 117/40
[2018-03-03 12:00] VITALS: BP 144/54
--- NOTE | 2018-03-03 12:12 | Consultation ---
Consult Note Consult Note asked to eval for elevated BUN and Cr HPI 77-year-old female with history of hypertension, blood cancer of unknown specificity, and subsequent anemia for which she gets weekly transfusions presents with a possible syncopal episode versus fall. 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 Patient does not recollect how she got to the ground, and she does feel little confused, although she is alert oriented to person place and situation, but has difficulty with identifying the year. She denies any pain complaints, she reports her doctor is out of town this week so she missed her usual transfusion, and she denies any bleeding anywhere such as rectal bleeding, dark stools, hematuria. She reports that the anemia is part of her cancer, and she can't recall the exact type of cancer she has. She does agree to receive a blood transfusion here, understanding the risks and benefits, since she gets them regularly. No Known Allergies (Unverified , 10/07/16) Past Medical History: No History, Except For Hx Cardiac Problems: Yes Hx Hypertension: Yes Hx Cancer: Yes - Blood Ca interviewed examined data reviewed Assessment/Plan Symptomatic Anemia Renal failure: Pre Renal on top of ? Renal : was on diuretic HCTZ dehydration HTN myelodysplastic syndrome s/p blood transfusion neutropenia hx of HTN hypokalemia hx of left breast CA Per orders transfuse- monitor renal parameters keep BP in check Per orders Tl Gifford MD Mar 03, 2018 12:12
[2018-03-03 12:39] LABS: FERRITIN 67 NG/ML (8-388)
[2018-03-03 12:54] LABS: % IRON SATURATION 46 % (15-50); IRON 115 ug/dL (50-175); TOTAL IRON BINDING CAPACITY 252 ug/dL (250-450)
[2018-03-03] MEDS ORDERED: Acetaminophen 500mg (ES) tab ORAL PRN (15:00)
[2018-03-03 16:00] VITALS: BP 141/50
--- NOTE | 2018-03-03 17:17 | Consultation ---
Consult Note Consult Note HEME CONSULT REQ MD: Rg Sahu DOS: 03/03/2018 C: Evaluation of MDS, cytopenias ID: 76 year old female with hx of MDS on chemotherapy (has been followed up with oncologist) was seen by me in 2017 for similar symptoms, presents with complaints of dizziness and lightheadedness She was transfused blood last week. Her Hemoglobin was 4 in ER. She is admitted to telemetry for further work up. Pt seen on floor, awake A&Ox4 NAD with no active s/sx of bleeding. No general GI complaints by patient. She presents with pancytopenia, hx of MDS and positive occult stool. According to the patient, she's had multiple colonoscopies and upper endoscopies in the past for her anemia with unremarkable results. At [facility] in the past has had a negative Small Bowel Double Balloon Endoscopy. In past treated at [facility], now getting transfusions almost weekly Home Meds Losartan/Hydrochlorothiazide (LOSARTAN-HCTZ 100-25 MG TAB) 1 Each Tablet, 1 TAB ORAL DAILY, TAB 10/09/16 Oxybutynin Chloride (OXYBUTYNIN CHLORIDE) 5 Mg/5 Ml Syrup, 5 MG PO DAILY, ML 10/09/16 Cholecalciferol (Vitamin D3) (Vitamin D-3) 2,000 Unit Tablet, 1000 UNIT PO, TAB 10/09/16 Potassium Chloride* (K-DUR*) 20 Meq Tab.er.prt, 20 MEQ ORAL DAILY, #7 TAB 0 Refills 10/09/16 Docusate Sodium* (COLACE*) 100 Mg Capsule, 100 MG ORAL DAILY, CAP 10/09/16 Ferrous Sulfate (FERROUS SULFATE) 325 Mg Tablet.dr, 325 MG ORAL DAILY, #30 TAB 0 Refills 10/09/16 Atorvastatin Calcium* (ATORVASTATIN CALCIUM*) 40 Mg Tablet, 40 MG ORAL BEDTIME, TAB 10/09/16 Amiodarone Hcl (AMIODARONE HCL) 100 Mg Tablet, 200 MG ORAL DAILY, TAB 10/09/16 Unable to Obtain Medications (UNABLE TO OBTAIN MEDS) 1 Ea Ea 10/07/16 Med list reviewed/reconciled: Yes Allergies: No Known Allergies (Unverified , 10/07/16) PMHx (1) Severe anemia (2) MDS (myelodysplastic syndrome) Social History: Denies: alcohol use, drug use, other, smoking ROS: Constitutional: No fever, no chills, no night sweats, no fatigue Skin: No rashes, lumps, itchiness, dryness HEENT: No HEARD, ear ache, visual changes, double vision, nosebleeds, sore throat, lumps, swollen glands Breasts: No lumps, pain, discharge Pulmonary: No cough, sputum, shortness of breath, coughing up blood, hemoptysis Cardiovascular: No chest pain, tightness, palpitations, syncope, claudication, orthopnea, PND GI: No nausea, vomiting, diarrhea, melena, hematochezia, change in appetite, abdominal pain : No dysuria, frequency, urgency, urinary incontinence, foamy urine PE: Vital Signs Last 24 Hour Vital Signs Date Time Temp Pulse Resp B/P (MAP) Pulse Ox O2 Delivery O2 Flow Rate FiO2 03/03/18 12:09 Room Air 03/03/18 11:00 98.8 79 18 117/40 97 Room Air 98.8 03/03/18 09:26 97.9 95 20 128/43 95 Room Air 97.9 03/03/18 09:05 97.9 90 16 136/64 92 Room Air 97.9 PE: General Appearance: A+O x3, NAD Skin: no rashes, itching HEENT: normocephalic, atraumatic Respiratory/Chest: chest wall non-tender, lungs clear Cardiovascular/Chest: normal peripheral pulses, normal rate Abdomen: normal bowel sounds, non tender Extremities: normal range of motion Laboratory Tests Test 03/03/18 09:15 03/03/18 09:50 White Blood Count 3.7 K/UL (4.8-10.8) L Red Blood Count 1.37 M/UL (4.20-5.40) L Hemoglobin 4.0 G/DL (12.0-16.0) *L Hematocrit 13.8 % (37.0-47.0) L Mean Corpuscular Volume 101 FL (80-99) H Mean Corpuscular Hemoglobin 29.7 PG (27.0-31.0) Mean Corpuscular Hemoglobin Concent 29.4 G/DL (32.0-36.0) L Red Cell Distribution Width 20.9 % (11.6-14.8) H Platelet Count 169 K/UL (150-450) Mean Platelet Volume 7.6 FL (6.5-10.1) Neutrophils (%) (Auto) % (45.0-75.0) Lymphocytes (%) (Auto) % (20.0-45.0) Monocytes (%) (Auto) % (1.0-10.0) Eosinophils (%) (Auto) % (0.0-3.0) Basophils (%) (Auto) % (0.0-2.0) Differential Total Cells Counted 100 Neutrophils % (Manual) 88 % (45-75) H Lymphocytes % (Manual) 10 % (20-45) L Monocytes % (Manual) 2 % (1-10) Eosinophils % (Manual) 0 % (0-3) Basophils % (Manual) 0 % (0-2) Band Neutrophils 0 % (0-8) Nucleated Red Blood Cells 1 /100 WBC Platelet Estimate Adequate Platelet Morphology Normal Polychromasia 2+ Hypochromasia 4+ Poikilocytosis 1+ Anisocytosis 3+ Macrocytosis 1+ Prothrombin Time 10.6 SEC (9.30-11.50) Prothromb Time International Ratio 1.0 (0.9-1.1) Activated Partial Thromboplast Time 20 SEC (23-33) L Sodium Level 141 MMOL/L (136-145) Potassium Level 3.6 MMOL/L (3.5-5.1) Chloride Level 108 MMOL/L (98-107) H Carbon Dioxide Level 19 MMOL/L (21-32) L Anion Gap 15 mmol/L (5-15) Blood Urea Nitrogen 66 mg/dL (7-18) H Creatinine 1.7 MG/DL (0.55-1.30) H Estimat Glomerular Filtration Rate mL/min (>60) Glucose Level 193 MG/DL (74-106) H Calcium Level 9.0 MG/DL (8.5-10.1) Iron Level 115 ug/dL (50-175) Total Iron Binding Capacity 252 ug/dL (250-450) Percent Iron Saturation 46 % (15-50) Unsaturated Iron Binding 137 ug/dL (112-346) Ferritin 67 NG/ML (8-388) Total Bilirubin 0.2 MG/DL (0.2-1.0) Aspartate Amino Transf (AST/SGOT) 16 U/L (15-37) Alanine Aminotransferase (ALT/SGPT) 18 U/L (12-78) Alkaline Phosphatase 43 U/L (46-116) L Troponin I 0.020 ng/mL (0.000-0.056) Total Protein 5.6 G/DL (6.4-8.2) L Albumin 2.9 G/DL (3.4-5.0) L Globulin 2.7 g/dL Albumin/Globulin Ratio 1.1 (1.0-2.7) Vitamin B12 Level 901 PG/ML (193-986) Folate 19.1 NG/ML (8.6-58.9) Urine Color Pale yellow Urine Appearance Clear Urine pH 5 (4.5-8.0) Urine Specific [place] 1.015 (1.005-1.035) Urine Protein Negative (NEGATIVE) Urine Glucose (UA) Negative (NEGATIVE) Urine Ketones Negative (NEGATIVE) Urine Blood Negative (NEGATIVE) Urine Nitrite Negative (NEGATIVE) Urine Bilirubin Negative (NEGATIVE) Urine Urobilinogen Normal MG/DL (0.0-1.0) Urine Leukocyte Esterase Negative (NEGATIVE) Current Medications Medications (Trade) Dose Ordered Sig/Coby Route PRN Reason Start Time Stop Time Status Last Admin Dose Admin Acetaminophen (Tylenol) 650 mg Q4H PRN ORAL fever 10/07/16 14:30 11/06/16 14:29 Al Hydroxide/Mg Hydroxide (Mylanta II) 30 ml Q6H PRN ORAL dyspepsia 10/07/16 14:30 11/06/16 14:29 Dextrose (Dextrose 50%) STAT PRN IV Hypoglycemia 10/07/16 14:30 11/06/16 14:29 Lorazepam (Ativan 2mg/ml 1ml) 0.5 mg Q4H PRN IV For Anxiety 10/07/16 14:30 10/14/16 14:29 Morphine Sulfate (Morphine Sulfate) 1 mg Q4H PRN IVP SEVERE PAIN 10/07/16 14:30 10/14/16 14:29 Ondansetron HCl (Zofran) 4 mg Q6H PRN IVP Nausea & Vomiting 10/07/16 14:30 11/06/16 14:29 Polyethylene Glycol (Miralax) 17 gm HSPRN PRN ORAL Constipation 10/07/16 14:30 11/06/16 14:29 Zolpidem Tartrate (Ambien) 5 mg HSPRN PRN ORAL Insomnia 10/07/16 14:30 11/06/16 14:29 Assessment and Recs: # Myelodysplastic syndrome -- on presentation significantly the hgb was 4. It is likely related to myelodysplastic syndrome, at this time attempting to confirm which treatment she is on for MDS, will request medical records, have placed order for this. Does not appear to be transforming to AML/ALL, at this time, recommend to keep hgb >7, plt count 20k and will rule out DIC --> prbc prn hgb <7 to goal --> neupogen if wbc is lower --> hepatitis and hiv in the past negative --> imaging of the us reviewed --> outpatient hematology followup # Severe anemia - secondary to MDS # Anemia rule out GI bleed, evaluated by gi team in the past # Neutropenia - neutropenic precuations, give one dose of neupogen sq prn anc < 1000 # History of hypertension # Symptomatic anemia Appreciate consultation greatly! Jeison Doe MD Mar 03, 2018 17:17
[2018-03-03 20:00] VITALS: BP 129/57
[2018-03-03] MEDS: Iron Sucrose 100 MG in NS 55 ML IV SCH (20:33)
--- NOTE | 2018-03-03 22:55 | Consultation ---
History of Present Illness General Date patient seen: Mar 03, 2018 Chief Complaint: Dizziness Present Illness HPI 77-year-old female with history of hypertension, blood cancer and anemia for which she gets weekly transfusions.the pt was found on the ground in her room and she was confused. 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 she was unable to provide hx. Allergies: Coded Allergies: No Known Allergies (Unverified , 10/07/16) Medication History Scheduled Amiodarone Hcl (Amiodarone Hcl), 200 MG ORAL DAILY, (Reported) Atorvastatin Calcium* (Atorvastatin Calcium*), 40 MG ORAL BEDTIME, (Reported) Docusate Sodium* (Colace*), 100 MG ORAL DAILY, (Reported) Ferrous Sulfate (Ferrous Sulfate), 325 MG ORAL DAILY, (Reported) Losartan/Hydrochlorothiazide (Losartan-Hctz 100-25 Mg Tab), 1 TAB ORAL DAILY, ( Reported) Oxybutynin Chloride (Oxybutynin Chloride), 5 MG PO DAILY, (Reported) Potassium Chloride* (K-Dur*), 20 MEQ ORAL DAILY, (Reported) Miscellaneous Medications Cholecalciferol (Vitamin D3) (Vitamin D-3), 1,000 UNIT PO, (Reported) Unable to Obtain Medications (Unable To Obtain Meds), (Reported) Patient History Limited by: medical condition History Provided By: Patient, Medical Record, PMD Healthcare decision maker Resuscitation status Do Not Resuscitate Advanced Directive on File Yes Past Medical/Surgical History Past Medical/Surgical History: (1) History of hypertension (2) Pancytopenia (3) Symptomatic anemia (4) Renal failure (ARF), acute on chronic (5) Myelodysplasia (myelodysplastic syndrome) Review of Systems Psychiatric: Reports: anxiety Physical Exam General Appearance: WD/WN, no apparent distress, alert, confused Last 24 Hour Vital Signs Date Time Temp Pulse Resp B/P (MAP) Pulse Ox O2 Delivery O2 Flow Rate FiO2 03/03/18 16:00 98.3 84 20 141/50 (80) 97 98.3 03/03/18 15:48 73 03/03/18 12:09 Room Air 03/03/18 12:00 99.0 84 20 144/54 (84) 96 99.0 03/03/18 11:59 82 03/03/18 11:40 98.8 79 18 117/40 97 Room Air 98.8 03/03/18 11:00 98.8 79 18 117/40 97 Room Air 98.8 03/03/18 09:26 97.9 95 20 128/43 95 Room Air 97.9 03/03/18 09:05 97.9 90 16 136/64 92 Room Air 97.9 Laboratory Tests Test 03/03/18 09:15 03/03/18 09:50 White Blood Count 3.7 K/UL (4.8-10.8) L Red Blood Count 1.37 M/UL (4.20-5.40) L Hemoglobin 4.0 G/DL (12.0-16.0) *L Hematocrit 13.8 % (37.0-47.0) L Mean Corpuscular Volume 101 FL (80-99) H Mean Corpuscular Hemoglobin 29.7 PG (27.0-31.0) Mean Corpuscular Hemoglobin Concent 29.4 G/DL (32.0-36.0) L Red Cell Distribution Width 20.9 % (11.6-14.8) H Platelet Count 169 K/UL (150-450) Mean Platelet Volume 7.6 FL (6.5-10.1) Neutrophils (%) (Auto) % (45.0-75.0) Lymphocytes (%) (Auto) % (20.0-45.0) Monocytes (%) (Auto) % (1.0-10.0) Eosinophils (%) (Auto) % (0.0-3.0) Basophils (%) (Auto) % (0.0-2.0) Differential Total Cells Counted 100 Neutrophils % (Manual) 88 % (45-75) H Lymphocytes % (Manual) 10 % (20-45) L Monocytes % (Manual) 2 % (1-10) Eosinophils % (Manual) 0 % (0-3) Basophils % (Manual) 0 % (0-2) Band Neutrophils 0 % (0-8) Nucleated Red Blood Cells 1 /100 WBC Platelet Estimate Adequate Platelet Morphology Normal Polychromasia 2+ Hypochromasia 4+ Poikilocytosis 1+ Anisocytosis 3+ Macrocytosis 1+ Prothrombin Time 10.6 SEC (9.30-11.50) Prothromb Time International Ratio 1.0 (0.9-1.1) Activated Partial Thromboplast Time 20 SEC (23-33) L Sodium Level 141 MMOL/L (136-145) Potassium Level 3.6 MMOL/L (3.5-5.1) Chloride Level 108 MMOL/L (98-107) H Carbon Dioxide Level 19 MMOL/L (21-32) L Anion Gap 15 mmol/L (5-15) Blood Urea Nitrogen 66 mg/dL (7-18) H Creatinine 1.7 MG/DL (0.55-1.30) H Estimat Glomerular Filtration Rate mL/min (>60) Glucose Level 193 MG/DL (74-106) H Calcium Level 9.0 MG/DL (8.5-10.1) Iron Level 115 ug/dL (50-175) Total Iron Binding Capacity 252 ug/dL (250-450) Percent Iron Saturation 46 % (15-50) Unsaturated Iron Binding 137 ug/dL (112-346) Ferritin 67 NG/ML (8-388) Total Bilirubin 0.2 MG/DL (0.2-1.0) Aspartate Amino Transf (AST/SGOT) 16 U/L (15-37) Alanine Aminotransferase (ALT/SGPT) 18 U/L (12-78) Alkaline Phosphatase 43 U/L (46-116) L Troponin I 0.020 ng/mL (0.000-0.056) Total Protein 5.6 G/DL (6.4-8.2) L Albumin 2.9 G/DL (3.4-5.0) L Globulin 2.7 g/dL Albumin/Globulin Ratio 1.1 (1.0-2.7) Vitamin B12 Level 901 PG/ML (193-986) Folate 19.1 NG/ML (8.6-58.9) Urine Color Pale yellow Urine Appearance Clear Urine pH 5 (4.5-8.0) Urine Specific [place] 1.015 (1.005-1.035) Urine Protein Negative (NEGATIVE) Urine Glucose (UA) Negative (NEGATIVE) Urine Ketones Negative (NEGATIVE) Urine Blood Negative (NEGATIVE) Urine Nitrite Negative (NEGATIVE) Urine Bilirubin Negative (NEGATIVE) Urine Urobilinogen Normal MG/DL (0.0-1.0) Urine Leukocyte Esterase Negative (NEGATIVE) Height (Feet): 5 Height (Inches): 3.00 Weight (Pounds): 150 Medications Current Medications Medications (Trade) Dose Ordered Sig/Coby Route PRN Reason Start Time Stop Time Status Last Admin Dose Admin Acetaminophen (Tylenol) 500 mg Q4H PRN ORAL Mild Pain/Temp > 100.5 03/03/18 15:00 04/02/18 14:59 Iron Sucrose 100 mg/Sodium Chloride 60 ml @ 240 mls/hr BEDTIME IV 03/03/18 21:00 03/07/18 21:14 03/03/18 20:33 Assessment/Plan Assessment/Plan encephalopathy due to c cont to monitor no meds as her condition is mild Aziza Haines MD Mar 03, 2018 22:55
[2018-03-04] VITALS: BP 130/57
[2018-03-04 04:00] VITALS: BP 136/51
--- NOTE | 2018-03-04 06:21 | General Progress Note ---
Assessment/Plan Assessment/Plan Assessment and Recs: # Myelodysplastic syndrome -- on presentation significantly the hgb was 4. It is likely related to myelodysplastic syndrome, at this time attempting to confirm which treatment she is on for MDS, will request medical records, have placed order for this. Does not appear to be transforming to AML/ALL, at this time, recommend to keep hgb >7, plt count 20k and will rule out DIC --> prbc prn hgb <7 to goal --> neupogen if wbc is lower --> hepatitis and hiv in the past negative --> imaging of the us reviewed --> outpatient hematology followup # Severe anemia - secondary to MDS --> r/o gi bleed, prior w/u negative --> eval by gi team in the past # Neutropenia - neutropenic precuations, give one dose of neupogen sq prn anc < 1000 # History of hypertension # Symptomatic anemia Appreciate consultation greatly! Subjective Constitutional: Denies: no symptoms, chills, diaphoresis, fever, malaise, weakness, other HEENT: Denies: no symptoms, eye pain, blurred vision, tearing, double vision, ear pain, ear discharge, nose pain, nose congestion, throat pain, throat swelling, mouth pain, mouth swelling, other Cardiovascular: Denies: no symptoms, chest pain, edema, irregular heart rate, lightheadedness, palpitations, syncope, other Respiratory: Denies: no symptoms, cough, orthopnea, shortness of breath, SOB with excertion, SOB at rest, sputum, stridor, wheezing, other Gastrointestinal/Abdominal: Denies: no symptoms, abdomen distended, abdominal pain, black stools, tarry stools, blood in stool, constipated, diarrhea, difficulty swallowing, nausea, poor appetite, poor fluid intake, rectal bleeding , vomiting, other Genitourinary: Denies: no symptoms, burning, discharge, frequency, flank pain, hematuria, incontinence, pain, urgency, other Neurologic/Psychiatric: Denies: no symptoms, anxiety, depressed, emotional problems, headache, numbness, paresthesia, pre-existing deficit, seizure, tingling, tremors, weakness, other Endocrine: Denies: no symptoms, excessive sweating, flushing, intolerance to cold, intolerance to heat, increased hunger, increased thirst, increased urine, unexplained weight gain, unexplained weight loss, other Hematologic/Lymphatic: Denies: no symptoms, anemia, easy bleeding, easy bruising, other Allergies: Coded Allergies: No Known Allergies (Unverified , 10/07/16) Subjective s/p transfusion, no events, no f/c Objective Last 24 Hour Vital Signs Date Time Temp Pulse Resp B/P (MAP) Pulse Ox O2 Delivery O2 Flow Rate FiO2 03/04/18 04:00 61 03/04/18 04:00 97.0 63 17 136/51 (79) 93 97.0 03/04/18 00:00 68 03/04/18 00:00 97.7 66 16 130/57 (81) 96 97.7 03/03/18 21:00 Room Air 03/03/18 20:00 63 03/03/18 20:00 97.9 68 18 129/57 (81) 97 97.9 03/03/18 16:00 98.3 84 20 141/50 (80) 97 98.3 03/03/18 15:48 73 03/03/18 12:09 Room Air 03/03/18 12:00 99.0 84 20 144/54 (84) 96 99.0 03/03/18 11:59 82 03/03/18 11:40 98.8 79 18 117/40 97 Room Air 98.8 03/03/18 11:00 98.8 79 18 117/40 97 Room Air 98.8 03/03/18 09:26 97.9 95 20 128/43 95 Room Air 97.9 03/03/18 09:05 97.9 90 16 136/64 92 Room Air 97.9 Intake and Output 03/03/18 03/04/18 19:00 07:00 Intake Total 740 ml Output Total 600 ml Balance 140 ml Intake Oral 240 ml IV Total 500 ml Output Urine Total 600 ml Laboratory Tests 03/03/18 09:15: White Blood Count 3.7L, Red Blood Count 1.37L, Hemoglobin 4.0*L, Hematocrit 13.8L, Mean Corpuscular Volume 101H, Mean Corpuscular Hemoglobin 29.7, Mean Corpuscular Hemoglobin Concent 29.4L, Red Cell Distribution Width 20.9H, Platelet Count 169, Mean Platelet Volume 7.6, Neutrophils (%) (Auto) , Lymphocytes (%) (Auto) , Monocytes (%) (Auto) , Eosinophils (%) (Auto) , Basophils (%) (Auto) , Differential Total Cells Counted 100, Neutrophils % ( Manual) 88H, Lymphocytes % (Manual) 10L, Monocytes % (Manual) 2, Eosinophils % ( Manual) 0, Basophils % (Manual) 0, Band Neutrophils 0, Nucleated Red Blood Cells 1, Platelet Estimate Adequate, Platelet Morphology Normal, Polychromasia 2 +, Hypochromasia 4+, Poikilocytosis 1+, Anisocytosis 3+, Macrocytosis 1+, Prothrombin Time 10.6, Prothromb Time International Ratio 1.0, Activated Partial Thromboplast Time 20L, Sodium Level 141, Potassium Level 3.6, Chloride Level 108H, Carbon Dioxide Level 19L, Anion Gap 15, Blood Urea Nitrogen 66H, Creatinine 1.7H, Estimat Glomerular Filtration Rate , Glucose Level 193H, Calcium Level 9.0, Iron Level 115, Total Iron Binding Capacity 252, Percent Iron Saturation 46, Unsaturated Iron Binding 137, Ferritin 67, Total Bilirubin 0.2, Aspartate Amino Transf (AST/SGOT) 16, Alanine Aminotransferase (ALT/SGPT) 18, Alkaline Phosphatase 43L, Troponin I 0.020, Total Protein 5.6L, Albumin 2.9L , Globulin 2.7, Albumin/Globulin Ratio 1.1, Vitamin B12 Level 901, Folate 19.1 03/03/18 09:50: Urine Color Pale yellow, Urine Appearance Clear, Urine pH 5, Urine Specific [place] 1.015, Urine Protein Negative, Urine Glucose (UA) Negative, Urine Ketones Negative, Urine Blood Negative, Urine Nitrite Negative, Urine Bilirubin Negative, Urine Urobilinogen Normal, Urine Leukocyte Esterase Negative Height (Feet): 5 Height (Inches): 3.00 Weight (Pounds): 198 General Appearance: no apparent distress EENT: normal ENT inspection Neck: normal inspection Cardiovascular: regular rhythm Respiratory/Chest: normal breath sounds Abdomen: no mass Extremities: non-tender Edema: 1+ Leg (L), 1+ Leg (R) Edema: mild edema Neurologic: alert Skin: warm/dry Jeison Doe MD Mar 04, 2018 06:21
[2018-03-04 07:13] LABS: MEAN CORPUSCULAR VOLUME 93 FL (80-99); PLATELET COUNT 134 K/UL (150-450); RED BLOOD COUNT 2.27 M/UL (4.20-5.40); WHITE BLOOD COUNT 3.1 K/UL (4.8-10.8)
[2018-03-04 07:20] LABS: HEMOGLOBIN 6.9 G/DL (12.0-16.0)
[2018-03-04 07:30] LABS: ALANINE AMINOTRANSFERASE 16 U/L (12-78); ALBUMIN 2.5 G/DL (3.4-5.0); ALKALINE PHOSPHATASE 41 U/L (46-116); ANION GAP 7 mmol/L (5-15); ASPARTATE AMINO TRANSFERASE 17 U/L (15-37); BILIRUBIN,TOTAL 0.5 MG/DL (0.2-1.0); BLOOD UREA NITROGEN 42 mg/dL (7-18); CALCIUM 8.3 MG/DL (8.5-10.1); CARBON DIOXIDE 24 MMOL/L (21-32); CHLORIDE 112 MMOL/L (98-107); CREATININE 1.2 MG/DL (0.55-1.30); POTASSIUM 3.3 MMOL/L (3.5-5.1); SODIUM 143 MMOL/L (136-145)
[2018-03-04 08:00] VITALS: BP 132/43
--- NOTE | 2018-03-04 09:42 | Nephrology Progress Note ---
Assessment/Plan Problem List: (1) Symptomatic anemia (2) Renal failure (ARF), acute on chronic (3) Myelodysplasia (myelodysplastic syndrome) Assessment Symptomatic Anemia Renal failure: Pre Renal on top of ? Renal : was on diuretic HCTZ dehydration HTN myelodysplastic syndrome s/p blood transfusion neutropenia hx of HTN hypokalemia hx of left breast CA Plan K supplement continue per Hematology- transfused 3 units monitor renal parameters and H&H keep BP in check Hydrate Subjective ROS Limited/Unobtainable: No Constitutional: Reports: other - stronger after 3 transfusions Objective Objective Last 24 Hour Vital Signs Date Time Temp Pulse Resp B/P (MAP) Pulse Ox O2 Delivery O2 Flow Rate FiO2 03/04/18 08:00 73 03/04/18 08:00 97.2 75 20 132/43 (72) 95 97.2 03/04/18 04:00 61 03/04/18 04:00 97.0 63 17 136/51 (79) 93 97.0 03/04/18 00:00 68 03/04/18 00:00 97.7 66 16 130/57 (81) 96 97.7 03/03/18 21:00 Room Air 03/03/18 20:00 63 03/03/18 20:00 97.9 68 18 129/57 (81) 97 97.9 03/03/18 16:00 98.3 84 20 141/50 (80) 97 98.3 03/03/18 15:48 73 03/03/18 12:09 Room Air 03/03/18 12:00 99.0 84 20 144/54 (84) 96 99.0 03/03/18 11:59 82 03/03/18 11:40 98.8 79 18 117/40 97 Room Air 98.8 03/03/18 11:00 98.8 79 18 117/40 97 Room Air 98.8 Intake and Output 03/03/18 03/04/18 19:00 07:00 Intake Total 740 ml Output Total 600 ml Balance 140 ml Intake Oral 240 ml IV Total 500 ml Output Urine Total 600 ml Laboratory Tests 03/03/18 09:50: Urine Color Pale yellow, Urine Appearance Clear, Urine pH 5, Urine Specific [place] 1.015, Urine Protein Negative, Urine Glucose (UA) Negative, Urine Ketones Negative, Urine Blood Negative, Urine Nitrite Negative, Urine Bilirubin Negative, Urine Urobilinogen Normal, Urine Leukocyte Esterase Negative 03/04/18 06:51: White Blood Count 3.1L, Red Blood Count 2.27L, Hemoglobin 6.9#*L, Hematocrit 21.0#L, Mean Corpuscular Volume 93, Mean Corpuscular Hemoglobin 30.3, Mean Corpuscular Hemoglobin Concent 32.7, Red Cell Distribution Width 19.0H, Platelet Count 134L, Mean Platelet Volume 8.1, Neutrophils (%) (Auto) , Lymphocytes (%) (Auto) , Monocytes (%) (Auto) , Eosinophils (%) (Auto) , Basophils (%) (Auto) , Differential Total Cells Counted 100, Neutrophils % ( Manual) 81H, Lymphocytes % (Manual) 17L, Monocytes % (Manual) 2, Eosinophils % ( Manual) 0, Basophils % (Manual) 0, Band Neutrophils 0, Nucleated Red Blood Cells 3, Platelet Estimate DecreasedL, Platelet Morphology Normal, Polychromasia 2+, Hypochromasia 2+, Anisocytosis 1+, Macrocytosis 1+, Sodium Level 143, Potassium Level 3.3L, Chloride Level 112H, Carbon Dioxide Level 24, Anion Gap 7, Blood Urea Nitrogen 42H, Creatinine 1.2, Estimat Glomerular Filtration Rate , Glucose Level 111H, Calcium Level 8.3L, Total Bilirubin 0.5, Aspartate Amino Transf (AST/SGOT) 17, Alanine Aminotransferase (ALT/SGPT) 16, Alkaline Phosphatase 41L, Total Protein 4.9L, Albumin 2.5L, Globulin 2.4, Albumin/Globulin Ratio 1.0 Height (Feet): 5 Height (Inches): 3.00 Weight (Pounds): 198 General Appearance: no apparent distress Cardiovascular: normal rate Respiratory/Chest: lungs clear Abdomen: soft Tl Gifford MD Mar 04, 2018 09:42
[2018-03-04 12:00] VITALS: BP 155/68
[2018-03-04] MEDS: Docusate 100mg cap ORAL SCH ×2 (12:55→18:44)
--- NOTE | 2018-03-04 15:25 | Cardiology Report ---
APPROVED REPORT EKG Measurement Heart [id number] Normal sinus rhythm Right bundle branch block T wave abnormality, consider inferior ischemia Abnormal ECG
[2018-03-04 16:00] VITALS: BP 128/57
[2018-03-04 20:00] VITALS: BP 130/55
[2018-03-04] MEDS: Iron Sucrose 100 MG in NS 55 ML IV SCH (20:26)
--- NOTE | 2018-03-04 23:01 | General Progress Note ---
Assessment/Plan Status: stable Assessment/Plan encephalopathy due to [facility] resolved anxiety d/o cont to monitor provided ro/st Subjective Date patient seen: Mar 04, 2018 Neurologic/Psychiatric: Reports: anxiety Allergies: Coded Allergies: No Known Allergies (Unverified , 10/07/16) Objective Last 24 Hour Vital Signs Date Time Temp Pulse Resp B/P (MAP) Pulse Ox O2 Delivery O2 Flow Rate FiO2 03/04/18 20:00 98.6 61 20 130/55 (80) 94 98.6 03/04/18 16:00 97.5 64 20 128/57 (80) 93 97.5 03/04/18 16:00 65 03/04/18 12:00 97.7 83 22 155/68 (97) 97 97.7 03/04/18 12:00 86 03/04/18 09:00 Room Air 03/04/18 08:00 73 03/04/18 08:00 97.2 75 20 132/43 (72) 95 97.2 03/04/18 04:00 61 03/04/18 04:00 97.0 63 17 136/51 (79) 93 97.0 03/04/18 00:00 68 03/04/18 00:00 97.7 66 16 130/57 (81) 96 97.7 Intake and Output 03/03/18 03/04/18 19:00 07:00 Intake Total 740 ml Output Total 600 ml Balance 140 ml Intake Oral 240 ml IV Total 500 ml Output Urine Total 600 ml Laboratory Tests 03/04/18 06:51: White Blood Count 3.1L, Red Blood Count 2.27L, Hemoglobin 6.9#*L, Hematocrit 21.0#L, Mean Corpuscular Volume 93, Mean Corpuscular Hemoglobin 30.3, Mean Corpuscular Hemoglobin Concent 32.7, Red Cell Distribution Width 19.0H, Platelet Count 134L, Mean Platelet Volume 8.1, Neutrophils (%) (Auto) , Lymphocytes (%) (Auto) , Monocytes (%) (Auto) , Eosinophils (%) (Auto) , Basophils (%) (Auto) , Differential Total Cells Counted 100, Neutrophils % ( Manual) 81H, Lymphocytes % (Manual) 17L, Monocytes % (Manual) 2, Eosinophils % ( Manual) 0, Basophils % (Manual) 0, Band Neutrophils 0, Nucleated Red Blood Cells 3, Platelet Estimate DecreasedL, Platelet Morphology Normal, Polychromasia 2+, Hypochromasia 2+, Anisocytosis 1+, Macrocytosis 1+, Sodium Level 143, Potassium Level 3.3L, Chloride Level 112H, Carbon Dioxide Level 24, Anion Gap 7, Blood Urea Nitrogen 42H, Creatinine 1.2, Estimat Glomerular Filtration Rate , Glucose Level 111H, Calcium Level 8.3L, Total Bilirubin 0.5, Aspartate Amino Transf (AST/SGOT) 17, Alanine Aminotransferase (ALT/SGPT) 16, Alkaline Phosphatase 41L, Total Protein 4.9L, Albumin 2.5L, Globulin 2.4, Albumin/Globulin Ratio 1.0 Height (Feet): 5 Height (Inches): 3.00 Weight (Pounds): 198 General Appearance: no apparent distress, alert Neurologic: oriented x 3, responsive, depressed affect Aziza Haines MD Mar 04, 2018 23:01
[2018-03-05] VITALS: BP 146/64
[2018-03-05 04:00] VITALS: BP 137/54
--- NOTE | 2018-03-05 05:15 | History and Physical Report ---
DATE OF ADMISSION: 03/03/2018 "NOTE: POOR AUDIO QUALITY" HISTORY OF PRESENT ILLNESS: The patient comes in because of symptomatic anemia and chronic anemia from myelodysplasia, on chemotherapy. The patient also has dementia and poor historian, status post fall on Friday . The patient also has a history of breast cancer, which has been removed. Denies nausea, vomiting, or diarrhea. Denies fever or chills. No shortness of breath. Denies cough. GI bleed. PAST MEDICAL HISTORY: Myelodysplasia, chronic anemia, arrhythmia, hyperlipidemia, vitamin D deficiency, constipation, hypertension, urinary incontinence, breast cancer, and organic brain syndrome. PAST SURGICAL HISTORY: Removal of breast cancer and surgery on the right hand. ALLERGIES: No known allergies. MEDICATIONS: Lipitor, amiodarone, vitamin D, Colace, ferrous sulfate, hydrochlorothiazide, oxybutynin, and potassium. FAMILY HISTORY: Noncontributory. SOCIAL HISTORY: No history of alcohol or illicit drugs. She is a [employer]. REVIEW OF SYSTEMS: HEENT: No headaches. RESPIRATORY: Denies shortness of breath. Denies cough. CARDIOVASCULAR: Denies chest pain. No orthopnea. GASTROINTESTINAL: No nausea, vomiting, or diarrhea. EXTREMITIES: Denies pain. CENTRAL NERVOUS SYSTEM: No change in vision or speech pattern feels very weak. PHYSICAL EXAMINATION: VITAL SIGNS: Temperature 97 degrees, pulse is 63, and blood pressure 136/51. HEENT: PERRLA. NECK: Supple. No lymphadenopathy. CHEST: Clear to auscultation. GASTROINTESTINAL: Soft, nontender, and nondistended. No organomegaly. EXTREMITIES: No edema. Reflexes on both sides. Moves all four extremities. She has generalized weakness. LABORATORY DATA: WBC of 3.7, hemoglobin of 4, and platelets of 169,000. Sodium 141, potassium 3.6, chloride 108, BUN 63, creatinine 1.7, and glucose of 193. ASSESSMENT AND PLAN: Acute renal failure, severe anemia, symptomatic anemia, admitted for that. Also, been consulted by Dr. Jeison Doe, Dr. Haines, and Dr. Gifford for the recurrent falls as well as symptomatic anemia. No further transfusion as well as for azotemia the patient. Ali Domingo Sahu DR: KLARISSA JOB#: [id number] CC:
[2018-03-05 07:30] LABS: HEMATOCRIT 25.4 % (37.0-47.0); HEMOGLOBIN 8.3 G/DL (12.0-16.0); MEAN CORPUSCULAR VOLUME 93 FL (80-99); PLATELET COUNT 153 K/UL (150-450); RED BLOOD COUNT 2.72 M/UL (4.20-5.40); RED CELL DISTRIBUTION WIDTH 19.3 % (11.6-14.8); WHITE BLOOD COUNT 2.5 K/UL (4.8-10.8)
[2018-03-05 08:00] VITALS: BP 138/67
[2018-03-05] MEDS: Docusate 100mg cap ORAL SCH ×3 (08:08→18:14)
[2018-03-05 08:36] LABS: ALANINE AMINOTRANSFERASE 21 U/L (12-78); ALBUMIN 2.9 G/DL (3.4-5.0); ALBUMIN/GLOBULIN RATIO 1.1 (1.0-2.7); ALKALINE PHOSPHATASE 50 U/L (46-116); ANION GAP 8 mmol/L (5-15); ASPARTATE AMINO TRANSFERASE 22 U/L (15-37); BILIRUBIN,TOTAL 0.5 MG/DL (0.2-1.0); BLOOD UREA NITROGEN 25 mg/dL (7-18); CALCIUM 8.9 MG/DL (8.5-10.1); CARBON DIOXIDE 23 MMOL/L (21-32); CHLORIDE 113 MMOL/L (98-107); CREATININE 1.2 MG/DL (0.55-1.30); POTASSIUM 3.9 MMOL/L (3.5-5.1); SODIUM 144 MMOL/L (136-145)
--- NOTE | 2018-03-05 10:48 | General Progress Note ---
Assessment/Plan Assessment/Plan Assessment/Recs: # Myelodysplastic syndrome -- on presentation significantly the hgb was 4. It is likely related to myelodysplastic syndrome, at this time attempting to confirm which treatment she is on for MDS, will request medical records, have placed order for this. Does not appear to be transforming to AML/ALL, at this time, recommend to keep hgb >7, plt count 20k and will rule out DIC --> prbc prn hgb <7 to goal --> neupogen if wbc is lower --> hepatitis and hiv in the past negative --> imaging of the us reviewed --> outpatient hematology followup --> currently seeing Dr. Nell Doe # Severe anemia - secondary to MDS --> r/o gi bleed, prior w/u negative --> eval by gi team in the past # Neutropenia - neutropenic precuations, give one dose of neupogen sq prn anc < 1000 # History of hypertension # Symptomatic anemia Appreciate consultation greatly! Subjective Constitutional: Denies: no symptoms, chills, diaphoresis, fever, malaise, weakness, other HEENT: Denies: no symptoms, eye pain, blurred vision, tearing, double vision, ear pain, ear discharge, nose pain, nose congestion, throat pain, throat swelling, mouth pain, mouth swelling, other Cardiovascular: Denies: no symptoms, chest pain, edema, irregular heart rate, lightheadedness, palpitations, syncope, other Respiratory: Denies: no symptoms, cough, orthopnea, shortness of breath, SOB with excertion, SOB at rest, sputum, stridor, wheezing, other Genitourinary: Denies: no symptoms, burning, discharge, frequency, flank pain, hematuria, incontinence, pain, urgency, other Neurologic/Psychiatric: Denies: no symptoms, anxiety, depressed, emotional problems, headache, numbness, paresthesia, pre-existing deficit, seizure, tingling, tremors, weakness, other Endocrine: Denies: no symptoms, excessive sweating, flushing, intolerance to cold, intolerance to heat, increased hunger, increased thirst, increased urine, unexplained weight gain, unexplained weight loss, other Allergies: Coded Allergies: No Known Allergies (Unverified , 10/07/16) Subjective s/p transfusion, labs reviewed, no events, no f/c Objective Last 24 Hour Vital Signs Date Time Temp Pulse Resp B/P (MAP) Pulse Ox O2 Delivery O2 Flow Rate FiO2 03/05/18 09:00 Room Air 03/05/18 08:00 70 03/05/18 08:00 97.5 66 20 138/67 (90) 96 97.5 03/05/18 04:00 98.5 62 20 137/54 (81) 97 98.5 03/05/18 04:00 56 03/05/18 00:00 63 03/05/18 00:00 97.3 71 20 146/64 (91) 95 97.3 03/04/18 21:00 Room Air 03/04/18 20:00 98.6 61 20 130/55 (80) 94 98.6 03/04/18 20:00 64 03/04/18 16:00 97.5 64 20 128/57 (80) 93 97.5 03/04/18 16:00 65 03/04/18 12:00 97.7 83 22 155/68 (97) 97 97.7 03/04/18 12:00 86 Intake and Output 03/04/18 03/05/18 19:00 07:00 Intake Total 820 ml 60 ml Balance 820 ml 60 ml Intake Oral 820 ml IV Total 60 ml # Voids 2 # Bowel Movements 1 Laboratory Tests 03/05/18 07:00: White Blood Count 2.5L, Red Blood Count 2.72L, Hemoglobin 8.3L, Hematocrit 25.4L , Mean Corpuscular Volume 93, Mean Corpuscular Hemoglobin 30.5, Mean Corpuscular Hemoglobin Concent 32.7, Red Cell Distribution Width 19.3H, Platelet Count 153, Mean Platelet Volume 7.8, Neutrophils (%) (Auto) , Lymphocytes (%) (Auto) , Monocytes (%) (Auto) , Eosinophils (%) (Auto) , Basophils (%) (Auto) , Differential Total Cells Counted 100, Neutrophils % ( Manual) 75, Lymphocytes % (Manual) 22, Monocytes % (Manual) 3, Eosinophils % ( Manual) 0, Basophils % (Manual) 0, Band Neutrophils 0, Nucleated Red Blood Cells 2, Platelet Estimate Adequate, Platelet Morphology Normal, Polychromasia 1 +, Anisocytosis 1+, Macrocytosis 1+, Ovalocytes 1+, Stomatocytes 1+, Schistocytes 1+, Sodium Level 144, Potassium Level 3.9, Chloride Level 113H, Carbon Dioxide Level 23, Anion Gap 8, Blood Urea Nitrogen 25H, Creatinine 1.2, Estimat Glomerular Filtration Rate , Glucose Level 95, Calcium Level 8.9, Total Bilirubin 0.5, Aspartate Amino Transf (AST/SGOT) 22, Alanine Aminotransferase ( ALT/SGPT) 21, Alkaline Phosphatase 50, Total Protein 5.6L, Albumin 2.9L, Globulin 2.7, Albumin/Globulin Ratio 1.1 Height (Feet): 5 Height (Inches): 3.00 Weight (Pounds): 198 General Appearance: no apparent distress EENT: TMs normal Neck: normal alignment Cardiovascular: normal rate Respiratory/Chest: lungs clear Abdomen: normal bowel sounds Extremities: non-tender Edema: no edema noted Leg (L), no edema noted Leg (R) Neurologic: oriented x 3 Skin: warm/dry Jeison Doe MD Mar 05, 2018 10:48
[2018-03-05 12:00] VITALS: BP 132/68
--- NOTE | 2018-03-05 15:14 | Nephrology Progress Note ---
Assessment/Plan Problem List: (1) Symptomatic anemia (2) Renal failure (ARF), acute on chronic (3) Myelodysplasia (myelodysplastic syndrome) Assessment Symptomatic Anemia Renal failure: Pre Renal on top of ? Renal : was on diuretic HCTZ dehydration HTN myelodysplastic syndrome s/p blood transfusion neutropenia hx of HTN hypokalemia hx of left breast CA Plan K supplement continue per Hematology- transfused 3 units monitor renal parameters and H&H keep BP in check DC Hydrate Subjective ROS Limited/Unobtainable: No Objective Objective Last 24 Hour Vital Signs Date Time Temp Pulse Resp B/P (MAP) Pulse Ox O2 Delivery O2 Flow Rate FiO2 03/05/18 12:00 58 03/05/18 12:00 98.0 69 18 132/68 (89) 94 98.0 03/05/18 09:00 Room Air 03/05/18 08:00 70 03/05/18 08:00 97.5 66 20 138/67 (90) 96 97.5 03/05/18 04:00 98.5 62 20 137/54 (81) 97 98.5 03/05/18 04:00 56 03/05/18 00:00 63 03/05/18 00:00 97.3 71 20 146/64 (91) 95 97.3 03/04/18 21:00 Room Air 03/04/18 20:00 98.6 61 20 130/55 (80) 94 98.6 03/04/18 20:00 64 03/04/18 16:00 97.5 64 20 128/57 (80) 93 97.5 03/04/18 16:00 65 Intake and Output 03/04/18 03/05/18 19:00 07:00 Intake Total 820 ml 60 ml Balance 820 ml 60 ml Intake Oral 820 ml IV Total 60 ml # Voids 2 # Bowel Movements 1 Laboratory Tests 03/05/18 07:00: White Blood Count 2.5L, Red Blood Count 2.72L, Hemoglobin 8.3L, Hematocrit 25.4L , Mean Corpuscular Volume 93, Mean Corpuscular Hemoglobin 30.5, Mean Corpuscular Hemoglobin Concent 32.7, Red Cell Distribution Width 19.3H, Platelet Count 153, Mean Platelet Volume 7.8, Neutrophils (%) (Auto) , Lymphocytes (%) (Auto) , Monocytes (%) (Auto) , Eosinophils (%) (Auto) , Basophils (%) (Auto) , Differential Total Cells Counted 100, Neutrophils % ( Manual) 75, Lymphocytes % (Manual) 22, Monocytes % (Manual) 3, Eosinophils % ( Manual) 0, Basophils % (Manual) 0, Band Neutrophils 0, Nucleated Red Blood Cells 2, Platelet Estimate Adequate, Platelet Morphology Normal, Polychromasia 1 +, Anisocytosis 1+, Macrocytosis 1+, Ovalocytes 1+, Stomatocytes 1+, Schistocytes 1+, Sodium Level 144, Potassium Level 3.9, Chloride Level 113H, Carbon Dioxide Level 23, Anion Gap 8, Blood Urea Nitrogen 25H, Creatinine 1.2, Estimat Glomerular Filtration Rate , Glucose Level 95, Calcium Level 8.9, Total Bilirubin 0.5, Aspartate Amino Transf (AST/SGOT) 22, Alanine Aminotransferase ( ALT/SGPT) 21, Alkaline Phosphatase 50, Total Protein 5.6L, Albumin 2.9L, Globulin 2.7, Albumin/Globulin Ratio 1.1, Hepatitis A IgM Antibody [Pending], Hepatitis B Surface Antigen [Pending], Hepatitis B Core IgM Antibody [Pending], Hepatitis C Antibody [Pending], HIV (1&2) Antibody Rapid Negative Height (Feet): 5 Height (Inches): 3.00 Weight (Pounds): 198 General Appearance: no apparent distress Objective no change Tl Gifford MD Mar 05, 2018 15:14
[2018-03-05 16:00] VITALS: BP 137/57
[2018-03-05] MEDS ORDERED: Tubing Blood Filter IV ONE (16:49)
[2018-03-05] MEDS ORDERED: NS 275ml ONE (16:49)
[2018-03-05 20:00] VITALS: BP 137/83
[2018-03-05] MEDS: Iron Sucrose 100 MG in NS 55 ML IV SCH (20:35)
--- NOTE | 2018-03-05 21:35 | General Progress Note ---
Assessment/Plan Problem List: (1) Symptomatic anemia ICD Codes: D64.9 - Anemia, unspecified SNOMED: 014196595 (2) Myelodysplasia (myelodysplastic syndrome) ICD Codes: D46.9 - Myelodysplastic syndrome, unspecified SNOMED: 715953636 (3) History of hypertension ICD Codes: Z86.79 - Personal history of other diseases of the circulatory system SNOMED: 913262882 Status: progressing Assessment/Plan afebrile anemia is improving mds weak benefit from pt/ot htn reviwed chart Subjective ROS Limited/Unobtainable: Yes Allergies: Coded Allergies: No Known Allergies (Unverified , 10/07/16) Objective Last 24 Hour Vital Signs Date Time Temp Pulse Resp B/P (MAP) Pulse Ox O2 Delivery O2 Flow Rate FiO2 03/05/18 20:00 97.9 63 20 137/83 (101) 99 97.9 03/05/18 16:00 97.9 82 18 137/57 (83) 98 97.9 03/05/18 16:00 58 03/05/18 12:00 58 03/05/18 12:00 98.0 69 18 132/68 (89) 94 98.0 03/05/18 09:00 Room Air 03/05/18 08:00 70 03/05/18 08:00 97.5 66 20 138/67 (90) 96 97.5 03/05/18 04:00 98.5 62 20 137/54 (81) 97 98.5 03/05/18 04:00 56 03/05/18 00:00 63 03/05/18 00:00 97.3 71 20 146/64 (91) 95 97.3 Intake and Output 03/04/18 03/05/18 19:00 07:00 Intake Total 820 ml 60 ml Balance 820 ml 60 ml Intake Oral 820 ml IV Total 60 ml # Voids 2 # Bowel Movements 1 Laboratory Tests 03/05/18 07:00: White Blood Count 2.5L, Red Blood Count 2.72L, Hemoglobin 8.3L, Hematocrit 25.4L , Mean Corpuscular Volume 93, Mean Corpuscular Hemoglobin 30.5, Mean Corpuscular Hemoglobin Concent 32.7, Red Cell Distribution Width 19.3H, Platelet Count 153, Mean Platelet Volume 7.8, Neutrophils (%) (Auto) , Lymphocytes (%) (Auto) , Monocytes (%) (Auto) , Eosinophils (%) (Auto) , Basophils (%) (Auto) , Differential Total Cells Counted 100, Neutrophils % ( Manual) 75, Lymphocytes % (Manual) 22, Monocytes % (Manual) 3, Eosinophils % ( Manual) 0, Basophils % (Manual) 0, Band Neutrophils 0, Nucleated Red Blood Cells 2, Platelet Estimate Adequate, Platelet Morphology Normal, Polychromasia 1 +, Anisocytosis 1+, Macrocytosis 1+, Ovalocytes 1+, Stomatocytes 1+, Schistocytes 1+, Sodium Level 144, Potassium Level 3.9, Chloride Level 113H, Carbon Dioxide Level 23, Anion Gap 8, Blood Urea Nitrogen 25H, Creatinine 1.2, Estimat Glomerular Filtration Rate , Glucose Level 95, Calcium Level 8.9, Total Bilirubin 0.5, Aspartate Amino Transf (AST/SGOT) 22, Alanine Aminotransferase ( ALT/SGPT) 21, Alkaline Phosphatase 50, Total Protein 5.6L, Albumin 2.9L, Globulin 2.7, Albumin/Globulin Ratio 1.1, Hepatitis A IgM Antibody [Pending], Hepatitis B Surface Antigen [Pending], Hepatitis B Core IgM Antibody [Pending], Hepatitis C Antibody [Pending], HIV (1&2) Antibody Rapid Negative Height (Feet): 5 Height (Inches): 3.00 Weight (Pounds): 198 Cardiovascular: regular rhythm Respiratory/Chest: lungs clear Abdomen: soft Rg Sahu MD Mar 05, 2018 21:34
[2018-03-06] VITALS: BP 139/66
[2018-03-06 04:00] VITALS: BP 137/70
[2018-03-06 06:24] LABS: HEMATOCRIT 26.2 % (37.0-47.0); HEMOGLOBIN 8.4 G/DL (12.0-16.0); MEAN CORPUSCULAR VOLUME 92 FL (80-99); PLATELET COUNT 142 K/UL (150-450); RED BLOOD COUNT 2.84 M/UL (4.20-5.40); RED CELL DISTRIBUTION WIDTH 18.5 % (11.6-14.8); WHITE BLOOD COUNT 2.3 K/UL (4.8-10.8)
[2018-03-06 06:53] LABS: ALANINE AMINOTRANSFERASE 20 U/L (12-78); ALBUMIN 2.7 G/DL (3.4-5.0); ALKALINE PHOSPHATASE 50 U/L (46-116); ANION GAP 8 mmol/L (5-15); ASPARTATE AMINO TRANSFERASE 21 U/L (15-37); BILIRUBIN,TOTAL 0.5 MG/DL (0.2-1.0); BLOOD UREA NITROGEN 21 mg/dL (7-18); CALCIUM 8.7 MG/DL (8.5-10.1); CARBON DIOXIDE 24 MMOL/L (21-32); CHLORIDE 111 MMOL/L (98-107); CREATININE 1.1 MG/DL (0.55-1.30); POTASSIUM 4.3 MMOL/L (3.5-5.1); SODIUM 143 MMOL/L (136-145)
--- NOTE | 2018-03-06 07:22 | General Progress Note ---
Assessment/Plan Assessment/Plan Assessment/Recs: # Myelodysplastic syndrome -- on presentation significantly the hgb was 4. It is likely related to myelodysplastic syndrome, at this time attempting to confirm which treatment she is on for MDS, will request medical records, have placed order for this. Does not appear to be transforming to AML/ALL, at this time, recommend to keep hgb >7, plt count 20k and will rule out DIC --> prbc prn hgb <7 to goal --> neupogen if wbc is lower --> hepatitis and hiv in the past negative --> imaging of the us reviewed --> outpatient hematology followup --> currently seeing Dr. Nell Doe # Severe anemia - secondary to MDS --> r/o gi bleed, prior w/u negative --> eval by gi team in the past # Neutropenia - neutropenic precuations, give one dose of neupogen sq prn anc < 1000 --> abx as needed # History of hypertension # Symptomatic anemia Appreciate consultation greatly! Subjective Constitutional: Denies: no symptoms, chills, diaphoresis, fever, malaise, weakness, other HEENT: Denies: no symptoms, eye pain, blurred vision, tearing, double vision, ear pain, ear discharge, nose pain, nose congestion, throat pain, throat swelling, mouth pain, mouth swelling, other Cardiovascular: Denies: no symptoms, chest pain, edema, irregular heart rate, lightheadedness, palpitations, syncope, other Respiratory: Denies: no symptoms, cough, orthopnea, shortness of breath, SOB with excertion, SOB at rest, sputum, stridor, wheezing, other Gastrointestinal/Abdominal: Denies: no symptoms, abdomen distended, abdominal pain, black stools, tarry stools, blood in stool, constipated, diarrhea, difficulty swallowing, nausea, poor appetite, poor fluid intake, rectal bleeding , vomiting, other Genitourinary: Denies: no symptoms, burning, discharge, frequency, flank pain, hematuria, incontinence, pain, urgency, other Neurologic/Psychiatric: Denies: no symptoms, anxiety, depressed, emotional problems, headache, numbness, paresthesia, pre-existing deficit, seizure, tingling, tremors, weakness, other Endocrine: Denies: no symptoms, excessive sweating, flushing, intolerance to cold, intolerance to heat, increased hunger, increased thirst, increased urine, unexplained weight gain, unexplained weight loss, other Hematologic/Lymphatic: Denies: no symptoms, anemia, easy bleeding, easy bruising, other Allergies: Coded Allergies: No Known Allergies (Unverified , 10/07/16) Subjective s/p transfusion, received 1 unit last night, labs reviewed, no events, no f/c Objective Last 24 Hour Vital Signs Date Time Temp Pulse Resp B/P (MAP) Pulse Ox O2 Delivery O2 Flow Rate FiO2 03/06/18 04:00 98.1 64 20 137/70 (92) 96 98.1 03/06/18 04:00 60 03/06/18 00:00 97.9 61 20 139/66 (90) 98 97.9 03/06/18 00:00 59 03/05/18 21:00 Room Air 03/05/18 20:00 62 03/05/18 20:00 97.9 63 20 137/83 (101) 99 97.9 03/05/18 16:00 97.9 82 18 137/57 (83) 98 97.9 03/05/18 16:00 58 03/05/18 12:00 58 03/05/18 12:00 98.0 69 18 132/68 (89) 94 98.0 03/05/18 09:00 Room Air 03/05/18 08:00 70 03/05/18 08:00 97.5 66 20 138/67 (90) 96 97.5 Intake and Output 03/05/18 03/06/18 19:00 07:00 Intake Total 480 ml 310 ml Balance 480 ml 310 ml Intake Oral 480 ml IV Total 60 ml Blood Product 250 ml # Voids 4 Laboratory Tests 03/05/18 21:00: Stool Occult Blood [Pending] 03/06/18 05:10: White Blood Count 2.3L, Red Blood Count 2.84L, Hemoglobin 8.4L, Hematocrit 26.2L , Mean Corpuscular Volume 92, Mean Corpuscular Hemoglobin 29.6, Mean Corpuscular Hemoglobin Concent 32.1, Red Cell Distribution Width 18.5H, Platelet Count 142L, Mean Platelet Volume 7.3, Neutrophils (%) (Auto) , Lymphocytes (%) (Auto) , Monocytes (%) (Auto) , Eosinophils (%) (Auto) , Basophils (%) (Auto) , Neutrophils % (Manual) [Pending], Lymphocytes % (Manual) [Pending], Platelet Estimate [Pending], Platelet Morphology [Pending], Sodium Level 143, Potassium Level 4.3, Chloride Level 111H, Carbon Dioxide Level 24, Anion Gap 8, Blood Urea Nitrogen 21H, Creatinine 1.1, Estimat Glomerular Filtration Rate , Glucose Level 95, Calcium Level 8.7, Total Bilirubin 0.5, Aspartate Amino Transf (AST/SGOT) 21, Alanine Aminotransferase (ALT/SGPT) 20, Alkaline Phosphatase 50, Total Protein 5.4L, Albumin 2.7L, Globulin 2.7, Albumin /Globulin Ratio 1.0 Height (Feet): 5 Height (Inches): 3.00 Weight (Pounds): 198 General Appearance: WD/WN EENT: PERRL/EOMI Neck: normal alignment Cardiovascular: regular rhythm Respiratory/Chest: lungs clear Abdomen: soft Extremities: non-tender Edema: 1+ Leg (L), 1+ Leg (R), 1+ Pedal (L), 1+ Pedal (R) Edema: mild edema Skin: warm/dry Jeison Doe MD Mar 06, 2018 07:22
[2018-03-06 08:11] VITALS: BP 130/58
[2018-03-06] MEDS: Docusate 100mg cap ORAL SCH ×2 (08:29→13:00)
[2018-03-06 12:33] VITALS: BP 154/61
[2018-03-06] MEDS ORDERED: Tubing Blood Filter IV ONE (13:44)
--- NOTE | 2018-03-06 14:06 | General Progress Note ---
Assessment/Plan Status: stable, progressing Assessment/Plan [place] [facility] anxiety d/o cont to monitor provided ro/st Subjective Date patient seen: Mar 06, 2018 Neurologic/Psychiatric: Reports: anxiety, depressed, emotional problems Allergies: Coded Allergies: No Known Allergies (Unverified , 10/07/16) Objective Last 24 Hour Vital Signs Date Time Temp Pulse Resp B/P (MAP) Pulse Ox O2 Delivery O2 Flow Rate FiO2 03/06/18 12:33 97.6 65 21 154/61 (92) 96 97.6 03/06/18 10:15 Room Air 03/06/18 08:11 98.0 73 21 130/58 (82) 96 98.0 03/06/18 04:00 98.1 64 20 137/70 (92) 96 98.1 03/06/18 04:00 60 03/06/18 00:00 97.9 61 20 139/66 (90) 98 97.9 03/06/18 00:00 59 03/05/18 21:00 Room Air 03/05/18 20:00 62 03/05/18 20:00 97.9 63 20 137/83 (101) 99 97.9 03/05/18 16:00 97.9 82 18 137/57 (83) 98 97.9 03/05/18 16:00 58 Intake and Output 03/05/18 03/06/18 19:00 07:00 Intake Total 480 ml 310 ml Balance 480 ml 310 ml Intake Oral 480 ml IV Total 60 ml Blood Product 250 ml # Voids 4 Laboratory Tests 03/05/18 21:00: Stool Occult Blood Positive 03/06/18 05:10: White Blood Count 2.3L, Red Blood Count 2.84L, Hemoglobin 8.4L, Hematocrit 26.2L , Mean Corpuscular Volume 92, Mean Corpuscular Hemoglobin 29.6, Mean Corpuscular Hemoglobin Concent 32.1, Red Cell Distribution Width 18.5H, Platelet Count 142L, Mean Platelet Volume 7.3, Neutrophils (%) (Auto) , Lymphocytes (%) (Auto) , Monocytes (%) (Auto) , Eosinophils (%) (Auto) , Basophils (%) (Auto) , Differential Total Cells Counted 100, Neutrophils % ( Manual) 74, Lymphocytes % (Manual) 22, Monocytes % (Manual) 4, Eosinophils % ( Manual) 0, Basophils % (Manual) 0, Band Neutrophils 0, Platelet Estimate DecreasedL, Platelet Morphology Normal, Hypochromasia 2+, Anisocytosis 2+, Sodium Level 143, Potassium Level 4.3, Chloride Level 111H, Carbon Dioxide Level 24, Anion Gap 8, Blood Urea Nitrogen 21H, Creatinine 1.1, Estimat Glomerular Filtration Rate , Glucose Level 95, Calcium Level 8.7, Total Bilirubin 0.5, Aspartate Amino Transf (AST/SGOT) 21, Alanine Aminotransferase ( ALT/SGPT) 20, Alkaline Phosphatase 50, Total Protein 5.4L, Albumin 2.7L, Globulin 2.7, Albumin/Globulin Ratio 1.0 Height (Feet): 5 Height (Inches): 3.00 Weight (Pounds): 198 General Appearance: no apparent distress, alert Neurologic: oriented x 3, responsive, normal mood/affect Aziza Haines MD Mar 06, 2018 14:06
--- NOTE | 2018-03-06 14:07 | Psych Consult Progress Note ---
Psych Consult Progress Note Consult 03/05/18 the pt is doing well weak stated that she has anxiety at times. and low energy Vital Signs Last 24 Hour Vital Signs Date Time Temp Pulse Resp B/P (MAP) Pulse Ox O2 Delivery O2 Flow Rate FiO2 03/06/18 12:33 97.6 65 21 154/61 (92) 96 97.6 03/06/18 10:15 Room Air 03/06/18 08:11 98.0 73 21 130/58 (82) 96 98.0 03/06/18 04:00 98.1 64 20 137/70 (92) 96 98.1 03/06/18 04:00 60 03/06/18 00:00 97.9 61 20 139/66 (90) 98 97.9 03/06/18 00:00 59 03/05/18 21:00 Room Air 03/05/18 20:00 62 03/05/18 20:00 97.9 63 20 137/83 (101) 99 97.9 03/05/18 16:00 97.9 82 18 137/57 (83) 98 97.9 03/05/18 16:00 58 Labs Laboratory Tests Test 03/05/18 21:00 03/06/18 05:10 Stool Occult Blood Positive (NEGATIVE) White Blood Count 2.3 K/UL (4.8-10.8) L Red Blood Count 2.84 M/UL (4.20-5.40) L Hemoglobin 8.4 G/DL (12.0-16.0) L Hematocrit 26.2 % (37.0-47.0) L Mean Corpuscular Volume 92 FL (80-99) Mean Corpuscular Hemoglobin 29.6 PG (27.0-31.0) Mean Corpuscular Hemoglobin Concent 32.1 G/DL (32.0-36.0) Red Cell Distribution Width 18.5 % (11.6-14.8) H Platelet Count 142 K/UL (150-450) L Mean Platelet Volume 7.3 FL (6.5-10.1) Neutrophils (%) (Auto) % (45.0-75.0) Lymphocytes (%) (Auto) % (20.0-45.0) Monocytes (%) (Auto) % (1.0-10.0) Eosinophils (%) (Auto) % (0.0-3.0) Basophils (%) (Auto) % (0.0-2.0) Differential Total Cells Counted 100 Neutrophils % (Manual) 74 % (45-75) Lymphocytes % (Manual) 22 % (20-45) Monocytes % (Manual) 4 % (1-10) Eosinophils % (Manual) 0 % (0-3) Basophils % (Manual) 0 % (0-2) Band Neutrophils 0 % (0-8) Platelet Estimate Decreased L Platelet Morphology Normal Hypochromasia 2+ Anisocytosis 2+ Sodium Level 143 MMOL/L (136-145) Potassium Level 4.3 MMOL/L (3.5-5.1) Chloride Level 111 MMOL/L (98-107) H Carbon Dioxide Level 24 MMOL/L (21-32) Anion Gap 8 mmol/L (5-15) Blood Urea Nitrogen 21 mg/dL (7-18) H Creatinine 1.1 MG/DL (0.55-1.30) Estimat Glomerular Filtration Rate mL/min (>60) Glucose Level 95 MG/DL (74-106) Calcium Level 8.7 MG/DL (8.5-10.1) Total Bilirubin 0.5 MG/DL (0.2-1.0) Aspartate Amino Transf (AST/SGOT) 21 U/L (15-37) Alanine Aminotransferase (ALT/SGPT) 20 U/L (12-78) Alkaline Phosphatase 50 U/L (46-116) Total Protein 5.4 G/DL (6.4-8.2) L Albumin 2.7 G/DL (3.4-5.0) L Globulin 2.7 g/dL Albumin/Globulin Ratio 1.0 (1.0-2.7) Medications Current Medications Medications (Trade) Dose Ordered Sig/Coby Route PRN Reason Start Time Stop Time Status Last Admin Dose Admin Acetaminophen (Tylenol) 500 mg Q4H PRN ORAL Mild Pain/Temp > 100.5 03/03/18 15:00 04/02/18 14:59 Docusate Sodium (Colace) 100 mg TID ORAL 03/04/18 13:00 04/03/18 12:59 03/06/18 08:29 Iron Sucrose 100 mg/Sodium Chloride 60 ml @ 240 mls/hr BEDTIME IV 03/03/18 21:00 03/07/18 21:14 10/11/18 20:35 Potassium Chloride (K-Dur) 40 meq DAILY ORAL 03/04/18 09:00 04/03/18 08:59 03/06/18 08:29 Problems: (1) Symptomatic anemia Assessment & Plan: encephalopathy due to [facility] resolved anxiety d/o cont to monitor provided ro/Aziza Ochoa MD Mar 06, 2018 14:07
--- NOTE | 2018-03-06 15:42 | Nephrology Progress Note ---
Assessment/Plan Problem List: (1) Symptomatic anemia (2) Renal failure (ARF), acute on chronic (3) Myelodysplasia (myelodysplastic syndrome) Assessment Symptomatic Anemia Renal failure: Pre Renal on top of ? Renal : was on diuretic HCTZ dehydration HTN myelodysplastic syndrome s/p blood transfusion neutropenia hx of HTN hypokalemia hx of left breast CA Plan K supplement continue per Hematology- transfused 3 units monitor renal parameters and H&H keep BP in check DC Hydrate DC planning Subjective ROS Limited/Unobtainable: No Interval Events/Complaints seen at 9 am Objective Objective Last 24 Hour Vital Signs Date Time Temp Pulse Resp B/P (MAP) Pulse Ox O2 Delivery O2 Flow Rate FiO2 03/06/18 12:33 97.6 65 21 154/61 (92) 96 97.6 03/06/18 10:15 Room Air 03/06/18 08:11 98.0 73 21 130/58 (82) 96 98.0 03/06/18 04:00 98.1 64 20 137/70 (92) 96 98.1 03/06/18 04:00 60 03/06/18 00:00 97.9 61 20 139/66 (90) 98 97.9 03/06/18 00:00 59 03/05/18 21:00 Room Air 03/05/18 20:00 62 03/05/18 20:00 97.9 63 20 137/83 (101) 99 97.9 03/05/18 16:00 97.9 82 18 137/57 (83) 98 97.9 03/05/18 16:00 58 Intake and Output 03/05/18 03/06/18 19:00 07:00 Intake Total 480 ml 310 ml Balance 480 ml 310 ml Intake Oral 480 ml IV Total 60 ml Blood Product 250 ml # Voids 4 Laboratory Tests 03/05/18 21:00: Stool Occult Blood Positive 03/06/18 05:10: White Blood Count 2.3L, Red Blood Count 2.84L, Hemoglobin 8.4L, Hematocrit 26.2L , Mean Corpuscular Volume 92, Mean Corpuscular Hemoglobin 29.6, Mean Corpuscular Hemoglobin Concent 32.1, Red Cell Distribution Width 18.5H, Platelet Count 142L, Mean Platelet Volume 7.3, Neutrophils (%) (Auto) , Lymphocytes (%) (Auto) , Monocytes (%) (Auto) , Eosinophils (%) (Auto) , Basophils (%) (Auto) , Differential Total Cells Counted 100, Neutrophils % ( Manual) 74, Lymphocytes % (Manual) 22, Monocytes % (Manual) 4, Eosinophils % ( Manual) 0, Basophils % (Manual) 0, Band Neutrophils 0, Platelet Estimate DecreasedL, Platelet Morphology Normal, Hypochromasia 2+, Anisocytosis 2+, Sodium Level 143, Potassium Level 4.3, Chloride Level 111H, Carbon Dioxide Level 24, Anion Gap 8, Blood Urea Nitrogen 21H, Creatinine 1.1, Estimat Glomerular Filtration Rate , Glucose Level 95, Calcium Level 8.7, Total Bilirubin 0.5, Aspartate Amino Transf (AST/SGOT) 21, Alanine Aminotransferase ( ALT/SGPT) 20, Alkaline Phosphatase 50, Total Protein 5.4L, Albumin 2.7L, Globulin 2.7, Albumin/Globulin Ratio 1.0 Height (Feet): 5 Height (Inches): 3.00 Weight (Pounds): 198 General Appearance: no apparent distress Objective no change Tl Gifford MD Mar 06, 2018 15:42
--- NOTE | 2018-03-08 09:32 | Discharge Summary ---
Discharge Summary Discharge Summary _ DATE OF ADMISSION: 03/03/2018 DATE OF DISCHARGE: 03/06/2018 REASON FOR ADMISSION: 77 years old female with past medical history of hypertension, myelodysplastic syndrome, anemia with regular transfusion, history of left breast cancer , presented status post fall, possible syncopal episode. 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 She was found by help staff on the ground, was confused. Patient was unable to recall what happened. Upon presentation, she denied pain. She reported missing her usual blood transfusion since her oncologist was out of town. She denied any bleeding, such as rectal bleeding, dark stools, hematuria. Upon evaluation vital signs were stable. WBC 3.7. Hemoglobin 4.0, hematocrit 13.8. Platelets 169. BUN 66, creatinine 1.7. Troponin negative. EKG revealed normal sinus rhythm, no acute ischemic changes. Urinalysis revealed no evidence of UTI. CT head revealed no acute intracranial bleed, mass effect or edema. Moderate atrophy of the brain. Evidence of chronic small vessel disease involving white matter tracts. CXR showed mild pulmonary vascular congestion. Patient admitted with diagnosis of severe symptomatic anemia, acute renal failure. CONSULTANTS: loading supervisor Dr. Gifford home lighting adviser/oncologist Dr. Doe psychiatrist [facility]SE: Patient admitted to monitored floor. Nephrology and hematology consults were requested. Anemia workup revealed stable iron, B12 and folate levels. Patient undergone total of 5 units of packed red blood cells transfusion. Prior to discharge hemoglobin 8.4, hematocrit 26.7. Patient to follow-up with the outpatient home lighting adviser for regular transfusion as scheduled. WBC count was closely monitored, remained leukopenic, but without meeting threshold for Neupogen administration . Leukopenia was likely to underlying myelodysplastic syndrome. Stool for OB was positive. Patient was followed prior by GI team and workup for GI bleeding was negative. Recommended further follow up. Hepatitis panel and HIV test were negative. Renal parameters and electrolytes were closely monitored. Electrolytes corrected as needed/hypokalemia corrected. Nephrotoxins were avoided. Music Mixer closely followed. Prior to discharge BUN 21 creatinine 1.1. Patient was working with physical and occupational therapists. Fall precautions were maintained. Psychiatry seen and evaluated the patient and stated that upon admission patient had encephalopathy secondary to general medical condition , which resolved with treatment. Patient also had anxiety disorder. Patient was closely monitored. Reality orientation and supportive therapy provided. Patient clinically improved. Patient was ready for discharge home with home health services. FINAL DIAGNOSES: Myelodysplastic syndrome Severe symptomatic anemia secondary to myelodysplastic syndrome, requiring blood transfusion Encephalopathy secondary to general medical condition, - resolved History of hypertension Anxiety disorder Hypokalemia History of left breast cancer DISCHARGE MEDICATIONS: See Medication Reconciliation list. DISCHARGE INSTRUCTIONS: Patient was discharged home with home health services. Follow up with outpatient oncologist as scheduled . I have been assigned to dictate discharge summary for this account. I was not involved in the patient's management. Sosa Dewey NP Mar 08, 2018 09:32
== END 2018-03-06 13:45 | disposition home health service (06) | DRG 812 ==
LOC: EDBD 09:05 → EMR 09:45 → 2E 10:05 → EDBEDREQ 10:30
PROC: 30233N1 Transfusion of Nonautologous Red Blood Cells into Peripheral Vein, Percutaneous Approach (ICD-10-PCS; principal; 2018-03-03)
DX: D46.9 Myelodysplastic syndrome, unspecified (principal); N17.9 Acute kidney failure, unspecified; G93.49 Other encephalopathy; D63.8 Anemia in other chronic diseases classified elsewhere; Z85.3 Personal history of malignant neoplasm of breast; Z91.81 History of falling; F41.9 Anxiety disorder, unspecified; E87.6 Hypokalemia; D70.9 Neutropenia, unspecified; I12.9 Hypertensive chronic kidney disease with stage 1 through stage 4 chronic kidney disease, or unspecified chronic kidney disease; N18.9 Chronic kidney disease, unspecified; Z66 Do not resuscitate
CPT/HCPCS: 36415; 70450; 71045; 80053; 81003; 82270; 82607; 82728; 82746; 83540; 83550; 84484; 85007; 85025; 85610; 85730; 86703; 86705; 86709; 86803; 86850; 86900; 86901; 86920; 87340; 93005; 99285; J8499

== ENCOUNTER 2018-03-10 12:27 | Inpatient (IN) | payer MEDICARE ==
[~2018-03-10] VITALS: Ht 167.6 cm; Wt 84.8 kg
[2018-03-10 12:56] VITALS: BP 126/64
--- NOTE | 2018-03-10 13:07 | Emergency Room Report ---
History of Present Illness General Chief Complaint: General Complaint Source: Patient, Medical Record Present Illness HPI Patient was recently in the hospital had multiple blood transfusions Patient was found to have worsening redness to the antecubital fossa and sent to the emergency room her hemoglobin has also been found to be low at 6 Patient denies any chest pain she does have some general weakness denies any fevers or chills Patient reports having an IV in the area of question while she was here denies any other cough or congestion recent hospitalization" 77 years old female with past medical history of hypertension, myelodysplastic syndrome, anemia with regular transfusion, history of left breast cancer , presented status post fall, possible syncopal episode. 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 She was found by help staff on the ground, was confused. Patient was unable to recall what happened. Upon presentation, she denied pain. She reported missing her usual blood transfusion since her oncologist was out of town. She denied any bleeding, such as rectal bleeding, dark stools, hematuria. Upon evaluation vital signs were stable. WBC 3.7. Hemoglobin 4.0, hematocrit 13.8. Platelets 169. BUN 66, creatinine 1.7. Troponin negative. EKG revealed normal sinus rhythm, no acute ischemic changes. Urinalysis revealed no evidence of UTI. CT head revealed no acute intracranial bleed, mass effect or edema. Moderate atrophy of the brain. Evidence of chronic small vessel disease involving white matter tracts. CXR showed mild pulmonary vascular congestion. Patient admitted with diagnosis of severe symptomatic anemia, acute renal failure." Allergies: Coded Allergies: No Known Allergies (Unverified , 03/10/18) Patient History Past Medical History: see triage record Pertinent Family History: none Reviewed Nursing Documentation: PMH: Agreed; PSxH: Agreed Nursing Documentation-PMH Hx Cardiac Problems: Yes Hx Hypertension: Yes Hx Cancer: Yes - Blood Ca Hx Gastrointestinal Problems: No Hx Neurological Problems: No Review of Systems All Other Systems: negative except mentioned in HPI Physical Exam Vital Signs Date Time Temp Pulse Resp B/P (MAP) Pulse Ox O2 Delivery O2 Flow Rate FiO2 03/10/18 12:33 98.7 75 15 148/70 96 Room Air 98.8 Sp02 EP Interpretation: reviewed, normal General Appearance: well appearing, no apparent distress Head: normocephalic, atraumatic Eyes: bilateral eye PERRL, bilateral eye EOMI ENT: hearing grossly normal, normal pharynx, TMs + canals normal, uvula midline Neck: full range of motion, supple, no meningismus, no bony tend Respiratory: lungs clear, normal breath sounds, no rhonchi, no respiratory distress, no retraction, no accessory muscle use Cardiovascular #1: normal peripheral pulses, regular rate, rhythm, no edema, no gallop, no JVD, no murmur Gastrointestinal: normal bowel sounds, non tender, soft, no mass, no organomegaly, non-distended, no guarding, no hernia, no pulsatile mass, no rebound Genitourinary: no CVA tenderness Musculoskeletal: normal inspection Neurologic: oriented x3, responsive, social problems specialist III-XII nml as tested, motor strength/ tone normal, sensory intact Psychiatric: mood/affect normal Skin: palpation normal, pallor, other - Erythema involving the right antecubital fossa, approximately 3 x 4 cm in size no obvious fluctuance no obvious flaring of erythema Lymphatic: normal inspection, no adenopathy Medical Decision Making Diagnostic Impression: Primary Impression: Cellulitis Additional Impressions: Myelodysplasia (myelodysplastic syndrome) Symptomatic anemia ER Course Multiple differentials and consideration Patient has extensive blood work initiated The antecubital fossa appears to have evidence of local reaction versus cellulitis Given the appearance and presentation patient will require admission and further care Please note that the patient does have MDS and hemoglobin of 6.6 will not be further intervened with in the ER Labs Test 03/10/18 13:35 White Blood Count 3.1 K/UL (4.8-10.8) Red Blood Count 2.23 M/UL (4.20-5.40) Hemoglobin 6.6 G/DL (12.0-16.0) Hematocrit 20.8 % (37.0-47.0) Mean Corpuscular Volume 94 FL (80-99) Mean Corpuscular Hemoglobin 29.5 PG (27.0-31.0) Mean Corpuscular Hemoglobin Concent 31.6 G/DL (32.0-36.0) Red Cell Distribution Width 16.9 % (11.6-14.8) Platelet Count 105 K/UL (150-450) Mean Platelet Volume 9.2 FL (6.5-10.1) Neutrophils (%) (Auto) % (45.0-75.0) Lymphocytes (%) (Auto) % (20.0-45.0) Monocytes (%) (Auto) % (1.0-10.0) Eosinophils (%) (Auto) % (0.0-3.0) Basophils (%) (Auto) % (0.0-2.0) Differential Total Cells Counted 100 Neutrophils % (Manual) 82 % (45-75) Lymphocytes % (Manual) 16 % (20-45) Monocytes % (Manual) 2 % (1-10) Eosinophils % (Manual) 0 % (0-3) Basophils % (Manual) 0 % (0-2) Band Neutrophils 0 % (0-8) Platelet Estimate Decreased Platelet Morphology Normal Hypochromasia 4+ Anisocytosis 1+ Spherocytes 1+ Sodium Level 139 MMOL/L (136-145) Potassium Level 4.3 MMOL/L (3.5-5.1) Chloride Level 106 MMOL/L (98-107) Carbon Dioxide Level 22 MMOL/L (21-32) Anion Gap 11 mmol/L (5-15) Blood Urea Nitrogen 29 mg/dL (7-18) Creatinine 1.3 MG/DL (0.55-1.30) Estimat Glomerular Filtration Rate mL/min (>60) Glucose Level 101 MG/DL (74-106) Lactic Acid Level 0.90 mmol/L (0.4-2.0) Calcium Level 8.7 MG/DL (8.5-10.1) Total Bilirubin 0.3 MG/DL (0.2-1.0) Aspartate Amino Transf (AST/SGOT) 28 U/L (15-37) Alanine Aminotransferase (ALT/SGPT) 16 U/L (12-78) Alkaline Phosphatase 50 U/L (46-116) Total Creatine Kinase 61 U/L (26-308) Creatine Kinase MB 0.5 NG/ML (0.0-3.6) Creatine Kinase MB Relative Index 0.8 Total Protein 5.7 G/DL (6.4-8.2) Albumin 2.4 G/DL (3.4-5.0) Globulin 3.3 g/dL Albumin/Globulin Ratio 0.7 (1.0-2.7) Rhythm Strip Diag. Results EP Interpretation: yes Rate: 67 Rhythm: NSR, no PVC's, no ectopy Last Vital Signs Date Time Temp Pulse Resp B/P (MAP) Pulse Ox O2 Delivery O2 Flow Rate FiO2 03/10/18 12:56 69 17 126/64 98 Room Air 03/10/18 12:33 98.7 98.8 Status: improved Disposition: ADMITTED INPATIENT Condition: Serious Referrals: ASIF MÉNDEZ (PCP) gR Ku DO Mar 10, 2018 13:07
[2018-03-10 14:03] LABS: HEMATOCRIT 20.8 % (37.0-47.0); MEAN CORPUSCULAR VOLUME 94 FL (80-99); PLATELET COUNT 105 K/UL (150-450); RED BLOOD COUNT 2.23 M/UL (4.20-5.40); RED CELL DISTRIBUTION WIDTH 16.9 % (11.6-14.8); WHITE BLOOD COUNT 3.1 K/UL (4.8-10.8)
[2018-03-10 14:08] LABS: HEMOGLOBIN 6.6 G/DL (12.0-16.0)
[2018-03-10 14:14] LABS: ANION GAP 11 mmol/L (5-15); BLOOD UREA NITROGEN 29 mg/dL (7-18); CALCIUM 8.7 MG/DL (8.5-10.1); CARBON DIOXIDE 22 MMOL/L (21-32); CHLORIDE 106 MMOL/L (98-107); CREATININE 1.3 MG/DL (0.55-1.30); POTASSIUM 4.3 MMOL/L (3.5-5.1); SODIUM 139 MMOL/L (136-145)
[2018-03-10 14:18] LABS: ALANINE AMINOTRANSFERASE 16 U/L (12-78); ALBUMIN 2.4 G/DL (3.4-5.0); ALBUMIN/GLOBULIN RATIO 0.7 (1.0-2.7); ALKALINE PHOSPHATASE 50 U/L (46-116); ASPARTATE AMINO TRANSFERASE 28 U/L (15-37); BILIRUBIN,TOTAL 0.3 MG/DL (0.2-1.0); CKMB 0.5 NG/ML (0.0-3.6); CREATINE KINASE 61 U/L (26-308)
[2018-03-10 15:24] VITALS: BP 124/39
[2018-03-10] MEDS ORDERED: Vancomycin 1250mg/D5W 250ml IVPB SCH (18:00)
[2018-03-10 20:00] VITALS: BP 153/92
[2018-03-10] MEDS ORDERED: Flu Vaccine (Alfuria) for Pts Less than 65 Years old IM ONE (20:00)
[2018-03-11] VITALS: BP 136/41
[2018-03-11 04:00] VITALS: BP 133/50
--- NOTE | 2018-03-11 06:16 | Consultation ---
Consult Note Consult Note HEME CONSULT REQ MD: Rg Sahu DOS: 03/11/2018 RFC: Evaluation of MDS, cytopenias, progressive anemia ID: 76 year old female with hx of MDS on chemotherapy (has been followed up with oncologist) was seen by me in 2017 for similar symptoms, presents with complaints of dizziness and lightheadedness She was transfused blood last week. Her Hemoglobin was 4 in ER. She is admitted to telemetry for further work up. Pt seen on floor, awake A&Ox4 NAD with no active s/sx of bleeding. No general GI complaints by patient. She presents with pancytopenia, hx of MDS and positive occult stool. According to the patient, she's had multiple colonoscopies and upper endoscopies in the past for her anemia with unremarkable results. At [facility] in the past has had a negative Small Bowel Double Balloon Endoscopy. In past treated at [place], now getting transfusions almost weekly, most recently was transfused 6 units. Was here last week and readmitted at this time as needs blood. Home Meds Losartan/Hydrochlorothiazide (LOSARTAN-HCTZ 100-25 MG TAB) 1 Each Tablet, 1 TAB ORAL DAILY, TAB 10/09/16 Oxybutynin Chloride (OXYBUTYNIN CHLORIDE) 5 Mg/5 Ml Syrup, 5 MG PO DAILY, ML 10/09/16 Cholecalciferol (Vitamin D3) (Vitamin D-3) 2,000 Unit Tablet, 1000 UNIT PO, TAB 10/09/16 Potassium Chloride* (K-DUR*) 20 Meq Tab.er.prt, 20 MEQ ORAL DAILY, #7 TAB 0 Refills 10/09/16 Docusate Sodium* (COLACE*) 100 Mg Capsule, 100 MG ORAL DAILY, CAP 10/09/16 Ferrous Sulfate (FERROUS SULFATE) 325 Mg Tablet.dr, 325 MG ORAL DAILY, #30 TAB 0 Refills 10/09/16 Atorvastatin Calcium* (ATORVASTATIN CALCIUM*) 40 Mg Tablet, 40 MG ORAL BEDTIME, TAB 10/09/16 Amiodarone Hcl (AMIODARONE HCL) 100 Mg Tablet, 200 MG ORAL DAILY, TAB 10/09/16 Unable to Obtain Medications (UNABLE TO OBTAIN MEDS) 1 Ea Ea 10/07/16 Med list reviewed/reconciled: Yes Allergies: No Known Allergies (Unverified , 10/07/16) PMHx (1) Severe anemia (2) MDS (myelodysplastic syndrome) Social History: Denies: alcohol use, drug use, other, smoking ROS: Constitutional: No fever, no chills, no night sweats, no fatigue Skin: No rashes, lumps, itchiness, dryness HEENT: No HEARD, ear ache, visual changes, double vision, nosebleeds, sore throat, lumps, swollen glands Breasts: No lumps, pain, discharge Pulmonary: No cough, sputum, shortness of breath, coughing up blood, hemoptysis Cardiovascular: No chest pain, tightness, palpitations, syncope, claudication, orthopnea, PND GI: No nausea, vomiting, diarrhea, melena, hematochezia, change in appetite, abdominal pain : No dysuria, frequency, urgency, urinary incontinence, foamy urine PE: Last 24 Hour Vital Signs Date Time Temp Pulse Resp B/P (MAP) Pulse Ox O2 Delivery O2 Flow Rate FiO2 03/11/18 04:00 98.5 61 19 133/50 (77) 97 98.5 03/11/18 00:00 98.5 65 19 136/41 (72) 96 98.5 03/10/18 21:00 Room Air 03/10/18 20:00 98.4 64 19 153/92 (112) 97 98.4 03/10/18 16:42 Room Air 03/10/18 15:45 98.3 77 19 124/39 98 Room Air 98.3 03/10/18 15:24 98.3 77 19 124/39 98 Room Air 98.3 03/10/18 12:56 69 17 126/64 98 Room Air 03/10/18 12:33 98.7 75 15 148/70 96 Room Air 98.8 PE: General Appearance: A+O x3, NAD Skin: no rashes, itching HEENT: normocephalic, atraumatic Respiratory/Chest: chest wall non-tender, lungs clear Cardiovascular/Chest: normal peripheral pulses, normal rate Abdomen: normal bowel sounds, non tender Extremities: normal range of motion. Right anticubital erythema noted, now on abx Laboratory Tests Test 03/10/18 13:35 White Blood Count 3.1 K/UL (4.8-10.8) L Red Blood Count 2.23 M/UL (4.20-5.40) L Hemoglobin 6.6 G/DL (12.0-16.0) *L Hematocrit 20.8 % (37.0-47.0) L Mean Corpuscular Volume 94 FL (80-99) Mean Corpuscular Hemoglobin 29.5 PG (27.0-31.0) Mean Corpuscular Hemoglobin Concent 31.6 G/DL (32.0-36.0) L Red Cell Distribution Width 16.9 % (11.6-14.8) H Platelet Count 105 K/UL (150-450) L Mean Platelet Volume 9.2 FL (6.5-10.1) Neutrophils (%) (Auto) % (45.0-75.0) Lymphocytes (%) (Auto) % (20.0-45.0) Monocytes (%) (Auto) % (1.0-10.0) Eosinophils (%) (Auto) % (0.0-3.0) Basophils (%) (Auto) % (0.0-2.0) Differential Total Cells Counted 100 Neutrophils % (Manual) 82 % (45-75) H Lymphocytes % (Manual) 16 % (20-45) L Monocytes % (Manual) 2 % (1-10) Eosinophils % (Manual) 0 % (0-3) Basophils % (Manual) 0 % (0-2) Band Neutrophils 0 % (0-8) Platelet Estimate Decreased L Platelet Morphology Normal Hypochromasia 4+ Anisocytosis 1+ Spherocytes 1+ Sodium Level 139 MMOL/L (136-145) Potassium Level 4.3 MMOL/L (3.5-5.1) Chloride Level 106 MMOL/L (98-107) Carbon Dioxide Level 22 MMOL/L (21-32) Anion Gap 11 mmol/L (5-15) Blood Urea Nitrogen 29 mg/dL (7-18) H Creatinine 1.3 MG/DL (0.55-1.30) Estimat Glomerular Filtration Rate mL/min (>60) Glucose Level 101 MG/DL (74-106) Lactic Acid Level 0.90 mmol/L (0.4-2.0) Calcium Level 8.7 MG/DL (8.5-10.1) Total Bilirubin 0.3 MG/DL (0.2-1.0) Aspartate Amino Transf (AST/SGOT) 28 U/L (15-37) Alanine Aminotransferase (ALT/SGPT) 16 U/L (12-78) Alkaline Phosphatase 50 U/L (46-116) Total Creatine Kinase 61 U/L (26-308) Creatine Kinase MB 0.5 NG/ML (0.0-3.6) Creatine Kinase MB Relative Index 0.8 Total Protein 5.7 G/DL (6.4-8.2) L Albumin 2.4 G/DL (3.4-5.0) L Globulin 3.3 g/dL Albumin/Globulin Ratio 0.7 (1.0-2.7) L Assessment/Recs: # Myelodysplastic syndrome -- on presentation significantly the hgb was 4. It is likely related to myelodysplastic syndrome, at this time attempting to confirm which treatment she is on for MDS, will request medical records, have placed order for this. Does not appear to be transforming to AML/ALL, at this time, recommend to keep hgb >7, plt count 20k and will rule out DIC --> prbc prn hgb <7 to goal --> neupogen if wbc is lower --> hepatitis and hiv in the past negative --> imaging of the us reviewed, from prior hospitalization --> currently seeing Dr. Nell Doe in clinic --> continue hematology outpatient followup --> recommend to admit to SNF as requiring transfusions, recurrent admissions, discussed with patient # Severe anemia - secondary to MDS --> r/o gi bleed, prior w/u negative --> eval by gi team in the past # Neutropenia - neutropenic precuations, give one dose of neupogen sq prn anc < 1000 --> abx as needed # History of hypertension # Symptomatic anemia --> standing order has been placed Appreciate consultation greatly! Jeison Doe MD Mar 11, 2018 06:16
[2018-03-11 07:44] LABS: HEMATOCRIT 22.8 % (37.0-47.0); HEMOGLOBIN 7.4 G/DL (12.0-16.0); MEAN CORPUSCULAR VOLUME 92 FL (80-99); PLATELET COUNT 130 K/UL (150-450); RED BLOOD COUNT 2.47 M/UL (4.20-5.40); RED CELL DISTRIBUTION WIDTH 15.5 % (11.6-14.8)
[2018-03-11 07:46] LABS: ALANINE AMINOTRANSFERASE 15 U/L (12-78); ALBUMIN 2.3 G/DL (3.4-5.0); ALBUMIN/GLOBULIN RATIO 0.7 (1.0-2.7); ALKALINE PHOSPHATASE 51 U/L (46-116); ANION GAP 10 mmol/L (5-15); ASPARTATE AMINO TRANSFERASE 13 U/L (15-37); BILIRUBIN,TOTAL 0.5 MG/DL (0.2-1.0); BLOOD UREA NITROGEN 30 mg/dL (7-18); CALCIUM 8.5 MG/DL (8.5-10.1); CARBON DIOXIDE 25 MMOL/L (21-32); CHLORIDE 106 MMOL/L (98-107); CREATININE 1.3 MG/DL (0.55-1.30); POTASSIUM 3.8 MMOL/L (3.5-5.1); SODIUM 141 MMOL/L (136-145)
[2018-03-11 08:00] VITALS: BP_SYST 116; BP_SYST 137; BP_DIAS 55; BP_DIAS 57
[2018-03-11] MEDS ORDERED: NS 500ML ONE (11:39)
[2018-03-11 12:00] VITALS: BP 126/52
[2018-03-11 16:00] VITALS: BP 129/62
--- NOTE | 2018-03-11 16:01 | Cardiac Electrophysiology PN ---
Subjective Subjective [id number] Objective Last 24 Hour Vital Signs Date Time Temp Pulse Resp B/P (MAP) Pulse Ox O2 Delivery O2 Flow Rate FiO2 03/11/18 12:00 99.3 57 18 126/52 (76) 95 99.3 03/11/18 09:00 Room Air 03/11/18 08:00 97.8 67 19 137/55 (82) 96 97.8 03/11/18 04:00 98.5 61 19 133/50 (77) 97 98.5 03/11/18 00:00 98.5 65 19 136/41 (72) 96 98.5 03/10/18 21:00 Room Air 03/10/18 20:00 98.4 64 19 153/92 (112) 97 98.4 03/10/18 16:42 Room Air Intake and Output 03/10/18 03/11/18 19:00 07:00 Intake Total 0 ml Balance 0 ml Intake Oral 0 ml # Voids 2 # Bowel Movements 1 Laboratory Tests Test 03/11/18 06:30 White Blood Count 3.0 K/UL (4.8-10.8) L Red Blood Count 2.47 M/UL (4.20-5.40) L Hemoglobin 7.4 G/DL (12.0-16.0) L Hematocrit 22.8 % (37.0-47.0) L Mean Corpuscular Volume 92 FL (80-99) Mean Corpuscular Hemoglobin 30.1 PG (27.0-31.0) Mean Corpuscular Hemoglobin Concent 32.5 G/DL (32.0-36.0) Red Cell Distribution Width 15.5 % (11.6-14.8) H Platelet Count 130 K/UL (150-450) L Mean Platelet Volume 8.6 FL (6.5-10.1) Neutrophils (%) (Auto) % (45.0-75.0) Lymphocytes (%) (Auto) % (20.0-45.0) Monocytes (%) (Auto) % (1.0-10.0) Eosinophils (%) (Auto) % (0.0-3.0) Basophils (%) (Auto) % (0.0-2.0) Differential Total Cells Counted 100 Neutrophils % (Manual) 73 % (45-75) Lymphocytes % (Manual) 20 % (20-45) Monocytes % (Manual) 4 % (1-10) Eosinophils % (Manual) 0 % (0-3) Basophils % (Manual) 0 % (0-2) Band Neutrophils 3 % (0-8) Platelet Estimate Decreased L Platelet Morphology Normal Hypochromasia 1+ Anisocytosis 1+ Sodium Level 141 MMOL/L (136-145) Potassium Level 3.8 MMOL/L (3.5-5.1) Chloride Level 106 MMOL/L (98-107) Carbon Dioxide Level 25 MMOL/L (21-32) Anion Gap 10 mmol/L (5-15) Blood Urea Nitrogen 30 mg/dL (7-18) H Creatinine 1.3 MG/DL (0.55-1.30) Estimat Glomerular Filtration Rate mL/min (>60) Glucose Level 99 MG/DL (74-106) Calcium Level 8.5 MG/DL (8.5-10.1) Total Bilirubin 0.5 MG/DL (0.2-1.0) Aspartate Amino Transf (AST/SGOT) 13 U/L (15-37) L Alanine Aminotransferase (ALT/SGPT) 15 U/L (12-78) Alkaline Phosphatase 51 U/L (46-116) Total Protein 5.6 G/DL (6.4-8.2) L Albumin 2.3 G/DL (3.4-5.0) L Globulin 3.3 g/dL Albumin/Globulin Ratio 0.7 (1.0-2.7) L Microbiology Date/Time Source Procedure Growth Status 03/10/18 21:20 Rectum Received Devin Quinn MD Mar 11, 2018 16:01
--- NOTE | 2018-03-11 16:12 | Cardiology Report ---
APPROVED REPORT EKG Measurement Heart [id number] Low atrial focus. Right bundle branch block Abnormal ECG
[2018-03-11] MEDS: Docusate 100mg cap ORAL SCH (17:12)
[2018-03-11] MEDS: Vancomycin 750mg/NS 250ml 250 ML IVPB SCH (17:13)
[2018-03-11] MEDS ORDERED: Docusate 100mg cap ORAL SCH (18:00)
[2018-03-11] MEDS ORDERED: Vancomycin 750mg/NS 250ml IVPB SCH (18:00)
[2018-03-11 20:00] VITALS: BP 123/56
--- NOTE | 2018-03-11 23:15 | Consultation ---
DATE OF CONSULTATION: 03/11/2018 INFECTIOUS DISEASE CONSULT CONSULTING PHYSICIAN: Gricelda Norwood M.D. PRIMARY ATTENDING PHYSICIAN: Rg Sahu M.D. REASON FOR CONSULT: Cellulitis and phlebitis of right upper extremity. HISTORY OF PRESENT ILLNESS: The patient is a 77-year-old female, admitted yesterday from a assisted complaining of pain, swelling, and erythema in right antecubital area. The patient was recently discharged on 03/06/2018 from hospital. During that admission, she had intravenous line for blood transfusion. Since admission, she is started on IV vancomycin. Today feels better. PAST MEDICAL HISTORY: Significant for myelodysplastic syndrome, status post chemotherapy, severe anemia, previous admission hemoglobin for this admission was 6.6. She has hypertension, history of left breast cancer, status post lumpectomy, has history of right ankle fracture, has metallic plate there. ALLERGIES: No known drug allergies. MEDICATIONS: Getting vancomycin, Colace, and Tylenol. SOCIAL HISTORY: Lives in assisted. No history of alcohol, drug abuse, or smoking. REVIEW OF SYSTEMS: She has dizziness, lightheadedness on fall. Says that it was in the previous admission. No fever. No chills. No nausea. No vomiting. No problem passing urine. PHYSICAL EXAMINATION: VITAL SIGNS: Temperature 99.3, pulse 57, blood pressure 126/52. GENERAL APPEARANCE: No acute distress. HEAD AND NECK: Stevens conjunctiva. No oral lesion. HEART: Normal rate. LUNGS: Clear. ABDOMEN: Soft, nontender. EXTREMITIES: She has some non-pitting edema in the legs. Has erythema, cord-like induration in the right antecubital area. The area is hard to touch and slightly tender. LABORATORY AND DIAGNOSTIC DATA: WBC 3, hemoglobin 7.4, hematocrit 22.8, and platelets 130. Sodium 141, potassium 3.8, chloride 106, bicarbonate 25, BUN 30, and creatinine 1.3. EKG shows bifascicular heart block, right bundle branch and left bundle-branch block. IMPRESSION: 1. Cellulitis and phlebitis of right arm. 2. The patient had myelodysplastic syndrome. 3. Hypertension. 4. Pancytopenia. RECOMMENDATION: We will continue with IV vancomycin. At the end of my exam, I thank, Dr. Sahu, for involving me in the care of this patient. Cuco Madison M.D. DR: JASPER JOB#: [id number] CC: NEMO
--- NOTE | 2018-03-11 23:30 | History and Physical Report ---
DATE OF ADMISSION: 03/10/2018 HISTORY OF PRESENT ILLNESS: The patient again was readmitted for cellulitis, at this time is admitted for cellulitis of the right arm as well as for low hemoglobin. The patient has MDS, currently requires also transfusion as well as IV antibiotics for cellulitis in the decubitus site on the right elbow. The patient denies shortness of breath. Denies nausea, vomiting, or diarrhea. Denies dizziness. The patient does have fever, chills, and has some pain in the right fossa area where the cellulitis is. The patient denies rectal bleeding. Denies nausea, vomiting, or diarrhea. Denies fever or chills. PAST MEDICAL HISTORY: Significant for MDS, transfusion dependent, hyperlipidemia, vitamin D deficiency, constipation, iron deficiency anemia, urinary incontinence, and hypertension. PAST SURGICAL HISTORY: Right ankle surgery and right hand surgery. ALLERGIES: No known allergies. MEDICATIONS: Lipitor, vitamin D, Colace, ferrous sulfate, hydrochlorothiazide, oxybutynin, and potassium. FAMILY HISTORY: Noncontributory. 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 Denies history of smoking. Denies alcohol or street drugs. REVIEW OF SYSTEMS: HEENT: Denies headaches. RESPIRATORY: Denies shortness of breath. Denies cough. CARDIOVASCULAR: Denies chest pain. No orthopnea. GASTROINTESTINAL: Denies nausea, vomiting, or diarrhea. Denies abdominal pain. EXTREMITIES: Denies any significant pain. CENTRAL NERVOUS SYSTEM: No change in vision or speech pattern, but does have some pain in the right fossa where the cellulitis is. PHYSICAL EXAMINATION: VITAL SIGNS: Temperature is 98.5, pulse is 65, and blood pressure 136/61. HEENT: PERRLA. NECK: Supple. CHEST: Clear to auscultation. GASTROINTESTINAL: Soft, nontender, and nondistended. No organomegaly. EXTREMITIES: No edema. Moves all four extremities. equal on both sides. The patient does have aching and mild tenderness on the right fossa . Reflexes on both sides. LABORATORY DATA: WBC of 3.1, hemoglobin 6.6, and platelets 105,000. Sodium 139, potassium 4.3, BUN of 29, and creatinine 1.3. ASSESSMENT AND PLAN: MDS. Severe anemia. Dr. Jeison Doe has been consulted for the transfusion. I have asked Dr. Gifford for the azotemia and Dr. Madison for the cellulitis of the right fossa and the right elbow Dr. Cuco Madison. Rg Sahu M.D. DR: AJITH JOB#: [id number] CC:
[2018-03-12] VITALS (9 sets, daily range): BP systolic 111–134; BP diastolic 42–61
--- NOTE | 2018-03-12 00:01 | Consultation ---
DATE OF CONSULTATION: 03/11/2018 CARDIOLOGY CONSULTATION CONSULTING PHYSICIAN: Devin Quinn M.D. REFERRING PHYSICIAN: Rg Sahu M.D. REASON FOR CONSULTATION: Bifascicular block. HISTORY OF PRESENT ILLNESS: The patient is a 77-year-old lady with myelodysplastic syndrome on chemotherapy, who presented to the hospital with dizziness and lightheadedness. The patient was transfused just last week. Her hemoglobin was only 4 in the emergency room, was admitted to telemetry. On telemetry, the EKG showed sinus rhythm with bifascicular block with right bundle-branch block and left posterior fascicular block. The patient also was at [facility], had a negative small-bowel double balloon endoscopy. The patient is currently getting transfusions almost weekly. REVIEW OF SYSTEMS: Review of systems was negative other than what is mentioned in the history of present illness. PAST MEDICAL HISTORY: Include: 1. Hypertension. 2. Atrial fibrillation. 3. Hyperlipidemia. 4. Myelodysplastic syndrome. FAMILY HISTORY: Noncontributory. MEDICATIONS: Include losartan, potassium, ferrous sulfate, Lipitor, and amiodarone. PHYSICAL EXAMINATION: VITAL SIGNS: Show blood pressure , respirations 18, and she is afebrile. HEAD AND NECK: Showed no JVD or carotid bruits. LUNGS: Clear. CARDIOVASCULAR: Shows regular S1 and S2 with no gallop or murmur. ABDOMEN: Soft. EXTREMITIES: A 1+ pitting edema. DIAGNOSTIC LABORATORY DATA: EKG shows sinus rhythm with right bundle-branch block and left anterior fascicular block. White count of 3.0, hemoglobin of 7.4, initially was 6.6, hematocrit 22.8, and platelet count is 130,000. Sodium 141, potassium 3.8, BUN of 30, creatinine 1.3, and glucose of 99. ASSESSMENT AND PLAN: 1. Bradycardia with bifascicular block. We will transfer the patient to telemetry. We will get an echocardiogram to evaluate for ejection fraction and wall motion abnormality. 2. Paroxysmal atrial fibrillation. The patient was on amiodarone, hold off on amiodarone to get further information. anticoagulation in view of severe anemia and thrombocytopenia with transfusion. 3. Myelodysplastic syndrome. Further evaluation by Dr. Doe with transfusions. Thank you very much for allowing me to participate in the care of this patient. Please do not hesitate to contact me for any questions regarding my evaluation. Devin Quinn M.D. DR: MILLY JOB#: [id number] CC:
[2018-03-12 06:30] LABS: APPEARANCE,URINE CLEAR; BILIRUBIN, URINE NEGATIVE (NEGATIVE); COLOR,URINE PALE YELLOW; GLUCOSE, URINE (UA) NEGATIVE (NEGATIVE); KETONES,URINE NEGATIVE (NEGATIVE); LEUKOCYTE ESTERASE ,URINE NEGATIVE (NEGATIVE); NITRITE,URINE NEGATIVE (NEGATIVE); PH,URINE 5 (4.5-8.0); PROTEIN,URINE NEGATIVE (NEGATIVE); UROBILINOGEN,URINE NORMAL MG/DL (0.0-1.0)
[2018-03-12 08:11] LABS: HEMATOCRIT 20.3 % (37.0-47.0); MEAN CORPUSCULAR VOLUME 92 FL (80-99); PLATELET COUNT 165 K/UL (150-450); RED BLOOD COUNT 2.19 M/UL (4.20-5.40); WHITE BLOOD COUNT 2.8 K/UL (4.8-10.8)
[2018-03-12] MEDS: Docusate 100mg cap ORAL SCH ×2 (08:11→17:18)
[2018-03-12 08:14] LABS: HEMOGLOBIN 6.6 G/DL (12.0-16.0)
--- NOTE | 2018-03-12 10:37 | Cardiac Electrophysiology PN ---
Assessment/Plan Assessment/Plan 1. Bradycardia with bifascicular block. No nikhil on tele. Echocardiogram pending. 2. Paroxysmal atrial fibrillation. The patient was on amiodarone, hold off on amiodarone . Off anticoagulation in view of severe anemia and thrombocytopenia with transfusion. 3. Myelodysplastic syndrome. Further evaluation by Dr. Doe with transfusions. Subjective Subjective Transferred to Telemetry. No CP. Getting blood transfusion. Objective Last 24 Hour Vital Signs Date Time Temp Pulse Resp B/P (MAP) Pulse Ox O2 Delivery O2 Flow Rate FiO2 03/12/18 09:00 Room Air 03/12/18 08:00 98.0 81 18 128/52 (77) 99 98.0 03/12/18 08:00 77 03/12/18 04:00 97.0 71 20 123/61 (81) 96 97.0 03/12/18 03:32 64 03/12/18 02:10 64 03/12/18 00:00 98.4 60 20 130/48 (75) 96 98.4 03/11/18 21:00 Room Air 03/11/18 20:00 98.9 62 18 123/56 (78) 96 98.9 03/11/18 19:07 69 03/11/18 17:25 71 03/11/18 16:00 98.9 76 18 129/62 (84) 96 98.9 03/11/18 12:00 99.3 57 18 126/52 (76) 95 99.3 Intake and Output 03/11/18 03/12/18 19:00 07:00 Intake Total 240 ml Balance 240 ml Intake Oral 240 ml # Voids 1 3 # Bowel Movements 1 1 Laboratory Tests Test 03/12/18 05:30 03/12/18 07:20 Urine Color Pale yellow Urine Appearance Clear Urine pH 5 (4.5-8.0) Urine Specific [place] 1.010 (1.005-1.035) Urine Protein Negative (NEGATIVE) Urine Glucose (UA) Negative (NEGATIVE) Urine Ketones Negative (NEGATIVE) Urine Blood Negative (NEGATIVE) Urine Nitrite Negative (NEGATIVE) Urine Bilirubin Negative (NEGATIVE) Urine Urobilinogen Normal MG/DL (0.0-1.0) Urine Leukocyte Esterase Negative (NEGATIVE) Urine RBC 0-2 /HPF (0 - 2) Urine WBC 0-2 /HPF (0 - 2) Urine Squamous Epithelial Cells Occasional /LPF Urine Bacteria Few /HPF (NONE) White Blood Count 2.8 K/UL (4.8-10.8) L Red Blood Count 2.19 M/UL (4.20-5.40) L Hemoglobin 6.6 G/DL (12.0-16.0) *L Hematocrit 20.3 % (37.0-47.0) L Mean Corpuscular Volume 92 FL (80-99) Mean Corpuscular Hemoglobin 30.1 PG (27.0-31.0) Mean Corpuscular Hemoglobin Concent 32.5 G/DL (32.0-36.0) Red Cell Distribution Width 16.0 % (11.6-14.8) H Platelet Count 165 K/UL (150-450) Mean Platelet Volume 8.6 FL (6.5-10.1) Neutrophils (%) (Auto) % (45.0-75.0) Lymphocytes (%) (Auto) % (20.0-45.0) Monocytes (%) (Auto) % (1.0-10.0) Eosinophils (%) (Auto) % (0.0-3.0) Basophils (%) (Auto) % (0.0-2.0) Differential Total Cells Counted 100 Neutrophils % (Manual) 70 % (45-75) Lymphocytes % (Manual) 22 % (20-45) Monocytes % (Manual) 8 % (1-10) Eosinophils % (Manual) 0 % (0-3) Basophils % (Manual) 0 % (0-2) Band Neutrophils 0 % (0-8) Platelet Estimate Adequate Platelet Morphology Normal Hypochromasia 1+ Anisocytosis 1+ Pro-B-Type Natriuretic Peptide 922 pg/mL (0-125) H Thyroid Stimulating Hormone (TSH) 4.686 uiU/mL (0.358-3.740) Free Thyroxine 1.24 NG/DL (0.76-1.46) Microbiology Date/Time Source Procedure Growth Status 03/10/18 13:50 Blood Blood Culture - Preliminary NO GROWTH AFTER 24 HOURS Resulted 03/10/18 13:35 Blood Blood Culture - Preliminary NO GROWTH AFTER 24 HOURS Resulted 03/10/18 21:20 Rectum Received Objective HEAD AND NECK: Showed no JVD or carotid bruits. LUNGS: Clear. CARDIOVASCULAR: Shows regular S1 and S2 with no gallop or murmur. ABDOMEN: Soft. EXTREMITIES: 1+ pitting edema. Devin Quinn MD Mar 12, 2018 10:37
--- NOTE | 2018-03-12 12:09 | Infectious Diseases Prog Note ---
Assessment/Plan Assessment/Plan A; R arm phlebitis & cellulitis Severe anemia Myelodysplastic syndrome HPN P: continue IV Vancomycin Subjective ROS Limited/Unobtainable: No Constitutional: Reports: no symptoms Cardiovascular: Reports: no symptoms Gastrointestinal/Abdominal: Reports: no symptoms Genitourinary: Reports: no symptoms Musculoskeletal: Reports: other - soarness in R arm Allergies: Coded Allergies: No Known Allergies (Unverified , 03/10/18) Objective Vital Signs Last 24 Hour Vital Signs Date Time Temp Pulse Resp B/P (MAP) Pulse Ox O2 Delivery O2 Flow Rate FiO2 03/12/18 11:57 98.2 74 18 117/56 (76) 99 98.2 03/12/18 09:00 Room Air 03/12/18 08:00 98.0 81 18 128/52 (77) 99 98.0 03/12/18 08:00 77 03/12/18 04:00 97.0 71 20 123/61 (81) 96 97.0 03/12/18 03:32 64 03/12/18 02:10 64 03/12/18 00:00 98.4 60 20 130/48 (75) 96 98.4 03/11/18 21:00 Room Air 03/11/18 20:00 98.9 62 18 123/56 (78) 96 98.9 03/11/18 19:07 69 03/11/18 17:25 71 03/11/18 16:00 98.9 76 18 129/62 (84) 96 98.9 Height (Feet): 5 Height (Inches): 6.00 Weight (Pounds): 187 General Appearance: no acute distress HEENT: mucous membranes moist Respiratory/Chest: lungs clear Cardiovascular: normal rate Abdomen: soft, non tender Extremities: other - edema of legs Skin: other - decreased erythema of R antecubital area Microbiology Date/Time Source Procedure Growth Status 03/10/18 13:50 Blood Blood Culture - Preliminary NO GROWTH AFTER 24 HOURS Resulted 03/10/18 13:35 Blood Blood Culture - Preliminary NO GROWTH AFTER 24 HOURS Resulted 03/10/18 21:20 Rectum Received Laboratory Tests Test 03/12/18 05:30 03/12/18 07:20 Urine Color Pale yellow Urine Appearance Clear Urine pH 5 (4.5-8.0) Urine Specific [place] 1.010 (1.005-1.035) Urine Protein Negative (NEGATIVE) Urine Glucose (UA) Negative (NEGATIVE) Urine Ketones Negative (NEGATIVE) Urine Blood Negative (NEGATIVE) Urine Nitrite Negative (NEGATIVE) Urine Bilirubin Negative (NEGATIVE) Urine Urobilinogen Normal MG/DL (0.0-1.0) Urine Leukocyte Esterase Negative (NEGATIVE) Urine RBC 0-2 /HPF (0 - 2) Urine WBC 0-2 /HPF (0 - 2) Urine Squamous Epithelial Cells Occasional /LPF Urine Bacteria Few /HPF (NONE) White Blood Count 2.8 K/UL (4.8-10.8) L Red Blood Count 2.19 M/UL (4.20-5.40) L Hemoglobin 6.6 G/DL (12.0-16.0) *L Hematocrit 20.3 % (37.0-47.0) L Mean Corpuscular Volume 92 FL (80-99) Mean Corpuscular Hemoglobin 30.1 PG (27.0-31.0) Mean Corpuscular Hemoglobin Concent 32.5 G/DL (32.0-36.0) Red Cell Distribution Width 16.0 % (11.6-14.8) H Platelet Count 165 K/UL (150-450) Mean Platelet Volume 8.6 FL (6.5-10.1) Neutrophils (%) (Auto) % (45.0-75.0) Lymphocytes (%) (Auto) % (20.0-45.0) Monocytes (%) (Auto) % (1.0-10.0) Eosinophils (%) (Auto) % (0.0-3.0) Basophils (%) (Auto) % (0.0-2.0) Differential Total Cells Counted 100 Neutrophils % (Manual) 70 % (45-75) Lymphocytes % (Manual) 22 % (20-45) Monocytes % (Manual) 8 % (1-10) Eosinophils % (Manual) 0 % (0-3) Basophils % (Manual) 0 % (0-2) Band Neutrophils 0 % (0-8) Platelet Estimate Adequate Platelet Morphology Normal Hypochromasia 1+ Anisocytosis 1+ Pro-B-Type Natriuretic Peptide 922 pg/mL (0-125) H Thyroid Stimulating Hormone (TSH) 4.686 uiU/mL (0.358-3.740) Free Thyroxine 1.24 NG/DL (0.76-1.46) Current Medications Medications (Trade) Dose Ordered Sig/Coby Route PRN Reason Start Time Stop Time Status Last Admin Dose Admin Acetaminophen (Tylenol) 650 mg Q4H PRN ORAL Mild Pain/Temp > 100.5 03/11/18 17:00 04/09/18 16:59 Docusate Sodium (Colace) 100 mg BID ORAL 03/11/18 18:00 04/10/18 17:59 03/12/18 08:11 Vancomycin HCl (Vanco rx to dose) 1 ea DAILY PRN MISC Per rx protocol 03/11/18 17:00 04/10/18 16:59 Vancomycin/Sodium Chloride 250 ml @ 166.667 mls/hr Q24H IVPB 03/11/18 18:00 03/16/18 17:59 03/11/18 17:13 Cuco Madison MD Mar 12, 2018 12:09
--- NOTE | 2018-03-12 13:18 | Cardiology Report ---
APPROVED REPORT EXAM: Two-dimensional and M-mode echocardiogram with Doppler and color Doppler. INDICATION Congestive Heart Failure M-Mode DIMENSIONS IVSd1.0 (0.7-1.1cm)Left Atrium (MM)5.5 (1.6-4.0cm) LVDd5.3 (3.5-5.6cm)Aortic Root3.8 (2.0-3.7cm) PWd1.3 (0.7-1.1cm)Aortic Cusp Exc.1.3 (1.5-2.0cm) IVSs2.1 cm LVDs3.0 (2.5-4.0cm) PWs2.1 cm Technically difficult study due poor acoustical windows . Normal left ventricular chamber size, systolic function and wall motion to extent visualized. Left ventricular ejection fraction estimated to be 55-60 %. Mild left ventricular hypertrophy by 2-D. Trivial pericardial effusion. Moderate left atrial enlargement . Right cardiac chamber sizes are within normal limits . Severe aortic valve calcification with reduced cusp excursion. Mildly Thickened mitral valve leaflets with normal excursion. Moderate mitral annulus and aortic root calcification. Echogenic material noted on posterior mitral valve leaflet . Pulmonic valve not well visualized. Normal tricuspid valve structure. . IVC at size 2.1cm with physiologic collapse . A color flow and spectral Doppler study was performed and revealed: Trace aortic regurgitation. Peak aortic valve gradient of 89 mm Hg and a mean of 38 mmHg, consistent with severe aortic stenosis. MAYRA area of 1.4 cm2 is most likely underestimated. Severe mitral regurgitation. Normal left ventricular diastolic function . Mild tricuspid regurgitation. Tricuspid systolic velocities suggests peak right ventricular systolic pressure of 82mmHg, consistent with severe pulmonary hypertension .
[2018-03-12] MEDS: Vancomycin 750mg/NS 250ml 250 ML IVPB SCH (17:18)
--- NOTE | 2018-03-12 18:21 | General Progress Note ---
Assessment/Plan Assessment/Plan Assessment/Recs: # Myelodysplastic syndrome -- on presentation significantly the hgb was 4. It is likely related to myelodysplastic syndrome, at this time attempting to confirm which treatment she is on for MDS, will request medical records, have placed order for this. Does not appear to be transforming to AML/ALL, at this time, recommend to keep hgb >7, plt count 20k and will rule out DIC --> prbc prn hgb <7 to goal --> neupogen if wbc is lower --> hepatitis and hiv in the past negative --> imaging of the us reviewed, from prior hospitalization --> currently seeing Dr. Nell Doe in clinic --> continue hematology outpatient followup --> recommend to admit to SNF as requiring transfusions, recurrent admissions, discussed with patient appears she is not as interested --> in the past has failed multiple treatments # Severe anemia - secondary to MDS --> r/o gi bleed, prior w/u negative --> eval by gi team in the past # Neutropenia - neutropenic precuations, give one dose of neupogen sq prn anc < 1000 --> abx as needed # History of HTN # Symptomatic anemia --> standing order has been placed Appreciate consultation greatly! Subjective Constitutional: Denies: no symptoms, chills, diaphoresis, fever, malaise, weakness, other HEENT: Denies: no symptoms, eye pain, blurred vision, tearing, double vision, ear pain, ear discharge, nose pain, nose congestion, throat pain, throat swelling, mouth pain, mouth swelling, other Cardiovascular: Denies: no symptoms, chest pain, edema, irregular heart rate, lightheadedness, palpitations, syncope, other Respiratory: Denies: no symptoms, cough, orthopnea, shortness of breath, SOB with excertion, SOB at rest, sputum, stridor, wheezing, other Gastrointestinal/Abdominal: Denies: no symptoms, abdomen distended, abdominal pain, black stools, tarry stools, blood in stool, constipated, diarrhea, difficulty swallowing, nausea, poor appetite, poor fluid intake, rectal bleeding , vomiting, other Genitourinary: Denies: no symptoms, burning, discharge, frequency, flank pain, hematuria, incontinence, pain, urgency, other Neurologic/Psychiatric: Denies: no symptoms, anxiety, depressed, emotional problems, headache, numbness, paresthesia, pre-existing deficit, seizure, tingling, tremors, weakness, other Endocrine: Denies: no symptoms, excessive sweating, flushing, intolerance to cold, intolerance to heat, increased hunger, increased thirst, increased urine, unexplained weight gain, unexplained weight loss, other Hematologic/Lymphatic: Denies: no symptoms, anemia, easy bleeding, easy bruising, other Allergies: Coded Allergies: No Known Allergies (Unverified , 03/10/18) Subjective dw her snf palcement, she is not interested Objective Last 24 Hour Vital Signs Date Time Temp Pulse Resp B/P (MAP) Pulse Ox O2 Delivery O2 Flow Rate FiO2 03/12/18 17:05 98.2 64 18 126/50 (75) 99 98.2 03/12/18 16:00 65 03/12/18 16:00 98.3 65 18 114/42 (66) 96 98.3 03/12/18 14:37 97.9 63 18 116/52 (73) 99 97.9 03/12/18 14:22 98.1 74 18 134/56 (82) 99 98.1 03/12/18 12:00 75 03/12/18 11:57 98.2 74 18 117/56 (76) 99 98.2 03/12/18 09:00 Room Air 03/12/18 08:00 98.0 81 18 128/52 (77) 99 98.0 03/12/18 08:00 77 03/12/18 04:00 97.0 71 20 123/61 (81) 96 97.0 03/12/18 03:32 64 03/12/18 02:10 64 03/12/18 00:00 98.4 60 20 130/48 (75) 96 98.4 03/11/18 21:00 Room Air 03/11/18 20:00 98.9 62 18 123/56 (78) 96 98.9 03/11/18 19:07 69 Intake and Output 03/11/18 03/12/18 19:00 07:00 Intake Total 240 ml Balance 240 ml Intake Oral 240 ml # Voids 1 3 # Bowel Movements 1 1 Laboratory Tests 03/12/18 05:30: Urine Color Pale yellow, Urine Appearance Clear, Urine pH 5, Urine Specific [place] 1.010, Urine Protein Negative, Urine Glucose (UA) Negative, Urine Ketones Negative, Urine Blood Negative, Urine Nitrite Negative, Urine Bilirubin Negative, Urine Urobilinogen Normal, Urine Leukocyte Esterase Negative, Urine RBC 0-2, Urine WBC 0-2, Urine Squamous Epithelial Cells Occasional, Urine Bacteria Few 03/12/18 07:20: White Blood Count 2.8L, Red Blood Count 2.19L, Hemoglobin 6.6*L, Hematocrit 20.3L, Mean Corpuscular Volume 92, Mean Corpuscular Hemoglobin 30.1, Mean Corpuscular Hemoglobin Concent 32.5, Red Cell Distribution Width 16.0H, Platelet Count 165, Mean Platelet Volume 8.6, Neutrophils (%) (Auto) , Lymphocytes (%) (Auto) , Monocytes (%) (Auto) , Eosinophils (%) (Auto) , Basophils (%) (Auto) , Differential Total Cells Counted 100, Neutrophils % ( Manual) 70, Lymphocytes % (Manual) 22, Monocytes % (Manual) 8, Eosinophils % ( Manual) 0, Basophils % (Manual) 0, Band Neutrophils 0, Platelet Estimate Adequate, Platelet Morphology Normal, Hypochromasia 1+, Anisocytosis 1+, Pro-B- Type Natriuretic Peptide 922H, Thyroid Stimulating Hormone (TSH) 4.686H, Free Thyroxine 1.24 Height (Feet): 5 Height (Inches): 6.00 Weight (Pounds): 187 General Appearance: lethargic EENT: pharynx normal Neck: supple Cardiovascular: regular rhythm Respiratory/Chest: lungs clear Abdomen: non tender Edema: 1+ Leg (L), 1+ Leg (R) Edema: mild edema Neurologic: alert Skin: warm/dry Jeison Doe MD Mar 12, 2018 18:21
--- NOTE | 2018-03-12 21:54 | General Progress Note ---
Assessment/Plan Problem List: (1) Pancytopenia ICD Codes: D61.818 - Other pancytopenia SNOMED: 662610775 (2) Myelodysplasia (myelodysplastic syndrome) ICD Codes: D46.9 - Myelodysplastic syndrome, unspecified SNOMED: 462140702 (3) Cellulitis ICD Codes: L03.90 - Cellulitis, unspecified SNOMED: 773080942 (4) Symptomatic anemia ICD Codes: D64.9 - Anemia, unspecified SNOMED: 649784382 Status: stable Assessment/Plan heart block consulted dr pizarro/ep afebrile anemia mds Subjective ROS Limited/Unobtainable: Yes Allergies: Coded Allergies: No Known Allergies (Unverified , 03/10/18) Objective Last 24 Hour Vital Signs Date Time Temp Pulse Resp B/P (MAP) Pulse Ox O2 Delivery O2 Flow Rate FiO2 03/12/18 21:00 Room Air 03/12/18 20:00 98.9 67 20 111/43 (65) 99 98.9 03/12/18 19:52 70 03/12/18 17:05 98.2 64 18 126/50 (75) 99 98.2 03/12/18 16:00 65 03/12/18 16:00 98.3 65 18 114/42 (66) 96 98.3 03/12/18 14:37 97.9 63 18 116/52 (73) 99 97.9 03/12/18 14:22 98.1 74 18 134/56 (82) 99 98.1 03/12/18 12:00 75 03/12/18 11:57 98.2 74 18 117/56 (76) 99 98.2 03/12/18 09:00 Room Air 03/12/18 08:00 98.0 81 18 128/52 (77) 99 98.0 03/12/18 08:00 77 03/12/18 04:00 97.0 71 20 123/61 (81) 96 97.0 03/12/18 03:32 64 03/12/18 02:10 64 03/12/18 00:00 98.4 60 20 130/48 (75) 96 98.4 Intake and Output 03/11/18 03/12/18 19:00 07:00 Intake Total 240 ml Balance 240 ml Intake Oral 240 ml # Voids 1 3 # Bowel Movements 1 1 Laboratory Tests 03/12/18 05:30: Urine Color Pale yellow, Urine Appearance Clear, Urine pH 5, Urine Specific [place] 1.010, Urine Protein Negative, Urine Glucose (UA) Negative, Urine Ketones Negative, Urine Blood Negative, Urine Nitrite Negative, Urine Bilirubin Negative, Urine Urobilinogen Normal, Urine Leukocyte Esterase Negative, Urine RBC 0-2, Urine WBC 0-2, Urine Squamous Epithelial Cells Occasional, Urine Bacteria Few 03/12/18 07:20: White Blood Count 2.8L, Red Blood Count 2.19L, Hemoglobin 6.6*L, Hematocrit 20.3L, Mean Corpuscular Volume 92, Mean Corpuscular Hemoglobin 30.1, Mean Corpuscular Hemoglobin Concent 32.5, Red Cell Distribution Width 16.0H, Platelet Count 165, Mean Platelet Volume 8.6, Neutrophils (%) (Auto) , Lymphocytes (%) (Auto) , Monocytes (%) (Auto) , Eosinophils (%) (Auto) , Basophils (%) (Auto) , Differential Total Cells Counted 100, Neutrophils % ( Manual) 70, Lymphocytes % (Manual) 22, Monocytes % (Manual) 8, Eosinophils % ( Manual) 0, Basophils % (Manual) 0, Band Neutrophils 0, Platelet Estimate Adequate, Platelet Morphology Normal, Hypochromasia 1+, Anisocytosis 1+, Pro-B- Type Natriuretic Peptide 922H, Thyroid Stimulating Hormone (TSH) 4.686H, Free Thyroxine 1.24 Height (Feet): 5 Height (Inches): 6.00 Weight (Pounds): 187 Rg Sahu MD Mar 12, 2018 21:54
[2018-03-13] VITALS (8 sets, daily range): BP systolic 119–143; BP diastolic 45–54
[2018-03-13 07:08] LABS: HEMATOCRIT 19.9 % (37.0-47.0); MEAN CORPUSCULAR VOLUME 91 FL (80-99); PLATELET COUNT 168 K/UL (150-450); RED BLOOD COUNT 2.19 M/UL (4.20-5.40); RED CELL DISTRIBUTION WIDTH 15.1 % (11.6-14.8); WHITE BLOOD COUNT 3.3 K/UL (4.8-10.8)
[2018-03-13 07:22] LABS: HEMOGLOBIN 6.7 G/DL (12.0-16.0)
[2018-03-13] MEDS: Docusate 100mg cap ORAL SCH ×2 (08:10→17:24)
[2018-03-13] MEDS ORDERED: Tubing Blood Filter IV ONE (10:13)
[2018-03-13] MEDS ORDERED: NS 275ml ONE (10:13)
--- NOTE | 2018-03-13 12:31 | Cardiac Electrophysiology PN ---
Assessment/Plan Assessment/Plan 1. Bradycardia with bifascicular block. No further nikhil. Echocardiogram EF 55% 2. Paroxysmal atrial fibrillation. The patient was on amiodarone, currently off amiodarone . Off anticoagulation in view of severe anemia and thrombocytopenia with transfusion. 3. Myelodysplastic syndrome. Further evaluation by Dr. Doe , Getting transfusion. Subjective Subjective On Telemetry. No CP. Getting blood transfusion again. Objective Last 24 Hour Vital Signs Date Time Temp Pulse Resp B/P (MAP) Pulse Ox O2 Delivery O2 Flow Rate FiO2 03/13/18 10:47 97.7 60 18 125/54 (77) 100 97.7 03/13/18 09:00 Room Air 03/13/18 08:00 98.3 69 16 131/49 (76) 100 98.3 03/13/18 08:00 72 03/13/18 04:03 66 03/13/18 04:03 98.5 72 20 130/50 (76) 97 98.5 03/13/18 00:01 64 03/13/18 00:00 98.2 68 20 121/46 (71) 95 98.2 03/12/18 21:00 Room Air 03/12/18 20:00 98.9 67 20 111/43 (65) 99 98.9 03/12/18 19:52 70 03/12/18 17:05 98.2 64 18 126/50 (75) 99 98.2 03/12/18 16:00 65 03/12/18 16:00 98.3 65 18 114/42 (66) 96 98.3 03/12/18 14:37 97.9 63 18 116/52 (73) 99 97.9 03/12/18 14:22 98.1 74 18 134/56 (82) 99 98.1 Intake and Output 03/12/18 03/13/18 18:59 06:59 Intake Total 360 ml Balance 360 ml Intake Oral 360 ml # Voids 3 2 # Bowel Movements 2 1 Laboratory Tests Test 03/13/18 06:15 White Blood Count 3.3 K/UL (4.8-10.8) L Red Blood Count 2.19 M/UL (4.20-5.40) L Hemoglobin 6.7 G/DL (12.0-16.0) *L Hematocrit 19.9 % (37.0-47.0) L Mean Corpuscular Volume 91 FL (80-99) Mean Corpuscular Hemoglobin 30.5 PG (27.0-31.0) Mean Corpuscular Hemoglobin Concent 33.7 G/DL (32.0-36.0) Red Cell Distribution Width 15.1 % (11.6-14.8) H Platelet Count 168 K/UL (150-450) Mean Platelet Volume 8.5 FL (6.5-10.1) Neutrophils (%) (Auto) % (45.0-75.0) Lymphocytes (%) (Auto) % (20.0-45.0) Monocytes (%) (Auto) % (1.0-10.0) Eosinophils (%) (Auto) % (0.0-3.0) Basophils (%) (Auto) % (0.0-2.0) Differential Total Cells Counted 100 Neutrophils % (Manual) 79 % (45-75) H Lymphocytes % (Manual) 17 % (20-45) L Monocytes % (Manual) 4 % (1-10) Eosinophils % (Manual) 0 % (0-3) Basophils % (Manual) 0 % (0-2) Band Neutrophils 0 % (0-8) Platelet Estimate Adequate Platelet Morphology Normal Hypochromasia 4+ Anisocytosis 1+ Spherocytes 1+ Erythropoietin Pending Microbiology Date/Time Source Procedure Growth Status 03/10/18 13:50 Blood Blood Culture - Preliminary NO GROWTH AFTER 48 HOURS Resulted 03/10/18 13:35 Blood Blood Culture - Preliminary NO GROWTH AFTER 48 HOURS Resulted 03/10/18 21:20 Nasal Nares Right MRSA Culture - Final NO METHICILLIN RESISTANT STAPH AUREUS... Complete 03/10/18 21:20 Rectum VRE Culture - Final NO VANCOMYCIN RESISTANT ENTEROCOCCUS ... Complete 03/10/18 21:20 Rectum - Final NO CARBAPENEM-RESISTANT ENTEROBACTERI... Complete Objective HEAD AND NECK: No JVD LUNGS: Clear. CARDIOVASCULAR: Shows regular S1 and S2 with no gallop or murmur. ABDOMEN: Soft. EXTREMITIES: 1+ pitting edema. Devin Quinn MD Mar 13, 2018 12:31
--- NOTE | 2018-03-13 14:09 | Infectious Diseases Prog Note ---
Assessment/Plan Assessment/Plan A; R arm phlebitis & cellulitis Severe anemia Myelodysplastic syndrome HPN P: continue IV Vancomycin In case of discharge will start on PO antibiotic Subjective ROS Limited/Unobtainable: No Constitutional: Reports: no symptoms Respiratory: Reports: no symptoms Gastrointestinal/Abdominal: Reports: no symptoms Genitourinary: Reports: no symptoms Hematologic: Reports: other - received blood transfusion Musculoskeletal: Reports: pain Allergies: Coded Allergies: No Known Allergies (Unverified , 03/10/18) Objective Vital Signs Last 24 Hour Vital Signs Date Time Temp Pulse Resp B/P (MAP) Pulse Ox O2 Delivery O2 Flow Rate FiO2 03/13/18 13:22 98.2 67 20 119/50 (73) 99 98.2 03/13/18 12:00 60 03/13/18 12:00 98.5 62 20 123/45 (71) 99 98.5 03/13/18 10:47 97.7 60 18 125/54 (77) 100 97.7 03/13/18 09:00 Room Air 03/13/18 08:00 98.3 69 16 131/49 (76) 100 98.3 03/13/18 08:00 72 03/13/18 04:03 66 03/13/18 04:03 98.5 72 20 130/50 (76) 97 98.5 03/13/18 00:01 64 03/13/18 00:00 98.2 68 20 121/46 (71) 95 98.2 03/12/18 21:00 Room Air 03/12/18 20:00 98.9 67 20 111/43 (65) 99 98.9 03/12/18 19:52 70 03/12/18 17:05 98.2 64 18 126/50 (75) 99 98.2 03/12/18 16:00 65 03/12/18 16:00 98.3 65 18 114/42 (66) 96 98.3 03/12/18 14:37 97.9 63 18 116/52 (73) 99 97.9 03/12/18 14:22 98.1 74 18 134/56 (82) 99 98.1 Height (Feet): 5 Height (Inches): 6.00 Weight (Pounds): 187 General Appearance: no acute distress HEENT: mucous membranes moist Respiratory/Chest: lungs clear Cardiovascular: normal rate Abdomen: soft, non tender Extremities: other - non pitting edema Skin: other - erythema & induration in R arm Neurologic/Psychiatric: alert, oriented x 3, responsive Microbiology Date/Time Source Procedure Growth Status 03/10/18 21:20 Nasal Nares Right MRSA Culture - Final NO METHICILLIN RESISTANT STAPH AUREUS... Complete 03/10/18 21:20 Rectum VRE Culture - Final NO VANCOMYCIN RESISTANT ENTEROCOCCUS ... Complete 03/10/18 21:20 Rectum - Final NO CARBAPENEM-RESISTANT ENTEROBACTERI... Complete Laboratory Tests Test 03/13/18 06:15 White Blood Count 3.3 K/UL (4.8-10.8) L Red Blood Count 2.19 M/UL (4.20-5.40) L Hemoglobin 6.7 G/DL (12.0-16.0) *L Hematocrit 19.9 % (37.0-47.0) L Mean Corpuscular Volume 91 FL (80-99) Mean Corpuscular Hemoglobin 30.5 PG (27.0-31.0) Mean Corpuscular Hemoglobin Concent 33.7 G/DL (32.0-36.0) Red Cell Distribution Width 15.1 % (11.6-14.8) H Platelet Count 168 K/UL (150-450) Mean Platelet Volume 8.5 FL (6.5-10.1) Neutrophils (%) (Auto) % (45.0-75.0) Lymphocytes (%) (Auto) % (20.0-45.0) Monocytes (%) (Auto) % (1.0-10.0) Eosinophils (%) (Auto) % (0.0-3.0) Basophils (%) (Auto) % (0.0-2.0) Differential Total Cells Counted 100 Neutrophils % (Manual) 79 % (45-75) H Lymphocytes % (Manual) 17 % (20-45) L Monocytes % (Manual) 4 % (1-10) Eosinophils % (Manual) 0 % (0-3) Basophils % (Manual) 0 % (0-2) Band Neutrophils 0 % (0-8) Platelet Estimate Adequate Platelet Morphology Normal Hypochromasia 4+ Anisocytosis 1+ Spherocytes 1+ Erythropoietin Pending Current Medications Medications (Trade) Dose Ordered Sig/Coby Route PRN Reason Start Time Stop Time Status Last Admin Dose Admin Acetaminophen (Tylenol) 650 mg Q4H PRN ORAL Mild Pain/Temp > 100.5 03/11/18 17:00 04/09/18 16:59 Docusate Sodium (Colace) 100 mg BID ORAL 03/11/18 18:00 04/10/18 17:59 03/13/18 08:10 Epoetin Collins (Procrit (for non ESRD use)) 60,000 units ONCE ONCE SUBQ 03/13/18 09:45 03/13/18 09:46 UNV Vancomycin HCl (Vanco rx to dose) 1 ea DAILY PRN MISC Per rx protocol 03/11/18 17:00 04/10/18 16:59 Vancomycin/Sodium Chloride 250 ml @ 166.667 mls/hr Q24H IVPB 03/11/18 18:00 03/16/18 17:59 03/12/18 17:18 Cuco Madison MD Mar 13, 2018 14:09
--- NOTE | 2018-03-13 16:05 | General Progress Note ---
Assessment/Plan Status: not improved Assessment/Plan Assessment/Recs: # Myelodysplastic syndrome -- on presentation significantly the hgb was 4. It is likely related to myelodysplastic syndrome, at this time attempting to confirm which treatment she is on for MDS, will request medical records, have placed order for this. Does not appear to be transforming to AML/ALL, at this time, recommend to keep hgb >7, plt count 20k and will rule out DIC --> prbc prn hgb <7 to goal --> neupogen if wbc is lower --> hepatitis and hiv in the past negative --> imaging of the us reviewed, from prior hospitalization --> currently seeing pt in outpatient clinic --> continue hematology outpatient followup --> recommend to admit to SNF as requiring transfusions, recurrent admissions, discussed with patient appears she is not as interested --> in the past has failed multiple treatments # Severe anemia - secondary to MDS --> r/o gi bleed, prior w/u negative --> eval by gi team in the past --> Blood tx: 03/13, # Neutropenia - neutropenic precautions, give one dose of Neupogen sq prn anc < 1000 --> abx as needed # History of HTN # Symptomatic anemia --> standing order has been placed Appreciate consultation greatly! Subjective Date patient seen: Mar 13, 2018 Hematologic/Lymphatic: Reports: anemia Allergies: Coded Allergies: No Known Allergies (Unverified , 03/10/18) All Systems: reviewed and negative except above Subjective Hgb at 6.7, blood tx ordered. VS stable. Objective Last 24 Hour Vital Signs Date Time Temp Pulse Resp B/P (MAP) Pulse Ox O2 Delivery O2 Flow Rate FiO2 03/13/18 13:22 98.2 67 20 119/50 (73) 99 98.2 03/13/18 12:00 60 03/13/18 12:00 98.5 62 20 123/45 (71) 99 98.5 03/13/18 10:47 97.7 60 18 125/54 (77) 100 97.7 03/13/18 09:00 Room Air 03/13/18 08:00 98.3 69 16 131/49 (76) 100 98.3 03/13/18 08:00 72 03/13/18 04:03 66 10/19/18 04:03 98.5 72 20 130/50 (76) 97 98.5 03/13/18 00:01 64 03/13/18 00:00 98.2 68 20 121/46 (71) 95 98.2 03/12/18 21:00 Room Air 03/12/18 20:00 98.9 67 20 111/43 (65) 99 98.9 03/12/18 19:52 70 03/12/18 17:05 98.2 64 18 126/50 (75) 99 98.2 Intake and Output 03/12/18 03/13/18 18:59 06:59 Intake Total 360 ml Balance 360 ml Intake Oral 360 ml # Voids 3 2 # Bowel Movements 2 1 Laboratory Tests 03/13/18 06:15: White Blood Count 3.3L, Red Blood Count 2.19L, Hemoglobin 6.7*L, Hematocrit 19.9L, Mean Corpuscular Volume 91, Mean Corpuscular Hemoglobin 30.5, Mean Corpuscular Hemoglobin Concent 33.7, Red Cell Distribution Width 15.1H, Platelet Count 168, Mean Platelet Volume 8.5, Neutrophils (%) (Auto) , Lymphocytes (%) (Auto) , Monocytes (%) (Auto) , Eosinophils (%) (Auto) , Basophils (%) (Auto) , Differential Total Cells Counted 100, Neutrophils % ( Manual) 79H, Lymphocytes % (Manual) 17L, Monocytes % (Manual) 4, Eosinophils % ( Manual) 0, Basophils % (Manual) 0, Band Neutrophils 0, Platelet Estimate Adequate, Platelet Morphology Normal, Hypochromasia 4+, Anisocytosis 1+, Spherocytes 1+, Erythropoietin [Pending] Height (Feet): 5 Height (Inches): 6.00 Weight (Pounds): 187 General Appearance: no apparent distress, alert EENT: PERRL/EOMI Neck: normal alignment Cardiovascular: bradycardia Respiratory/Chest: no respiratory distress Abdomen: no organomegaly Jeison Doe MD Mar 13, 2018 16:05
[2018-03-13] MEDS: Vancomycin 750mg/NS 250ml 250 ML IVPB SCH (17:59)
[2018-03-13] MEDS ORDERED: Epogen (for non ESRD use) SUBQ SCH (21:00)
--- NOTE | 2018-03-13 23:09 | General Progress Note ---
Assessment/Plan Problem List: (1) Pancytopenia ICD Codes: D61.818 - Other pancytopenia SNOMED: 335605100 (2) Myelodysplasia (myelodysplastic syndrome) ICD Codes: D46.9 - Myelodysplastic syndrome, unspecified SNOMED: 780267573 (3) Cellulitis ICD Codes: L03.90 - Cellulitis, unspecified SNOMED: 295434707 (4) Symptomatic anemia ICD Codes: D64.9 - Anemia, unspecified SNOMED: 948438504 Status: progressing Assessment/Plan heart block got transfusion today anemia mds Subjective ROS Limited/Unobtainable: Yes Allergies: Coded Allergies: No Known Allergies (Unverified , 03/10/18) Objective Last 24 Hour Vital Signs Date Time Temp Pulse Resp B/P (MAP) Pulse Ox O2 Delivery O2 Flow Rate FiO2 03/13/18 21:00 Room Air 03/13/18 20:00 97.9 63 18 143/53 (83) 99 97.9 03/13/18 16:00 98.7 69 20 127/49 (75) 95 98.7 03/13/18 16:00 68 03/13/18 13:22 98.2 67 20 119/50 (73) 99 98.2 03/13/18 12:00 60 03/13/18 12:00 98.5 62 20 123/45 (71) 99 98.5 03/13/18 10:47 97.7 60 18 125/54 (77) 100 97.7 03/13/18 09:00 Room Air 03/13/18 08:00 98.3 69 16 131/49 (76) 100 98.3 03/13/18 08:00 72 03/13/18 04:03 66 03/13/18 04:03 98.5 72 20 130/50 (76) 97 98.5 03/13/18 00:01 64 03/13/18 00:00 98.2 68 20 121/46 (71) 95 98.2 Intake and Output 03/12/18 03/13/18 19:00 07:00 Intake Total 360 ml Balance 360 ml Intake Oral 360 ml # Voids 3 2 # Bowel Movements 2 1 Laboratory Tests 03/13/18 06:15: White Blood Count 3.3L, Red Blood Count 2.19L, Hemoglobin 6.7*L, Hematocrit 19.9L, Mean Corpuscular Volume 91, Mean Corpuscular Hemoglobin 30.5, Mean Corpuscular Hemoglobin Concent 33.7, Red Cell Distribution Width 15.1H, Platelet Count 168, Mean Platelet Volume 8.5, Neutrophils (%) (Auto) , Lymphocytes (%) (Auto) , Monocytes (%) (Auto) , Eosinophils (%) (Auto) , Basophils (%) (Auto) , Differential Total Cells Counted 100, Neutrophils % ( Manual) 79H, Lymphocytes % (Manual) 17L, Monocytes % (Manual) 4, Eosinophils % ( Manual) 0, Basophils % (Manual) 0, Band Neutrophils 0, Platelet Estimate Adequate, Platelet Morphology Normal, Hypochromasia 4+, Anisocytosis 1+, Spherocytes 1+, Erythropoietin [Pending] 03/13/18 17:00: Vancomycin Level Trough 6.8 Height (Feet): 5 Height (Inches): 6.00 Weight (Pounds): 187 Cardiovascular: normal rate Respiratory/Chest: lungs clear Abdomen: soft Rg Sahu MD Mar 13, 2018 23:09
[2018-03-14] VITALS: BP 140/59
[2018-03-14 04:00] VITALS: BP 123/48
[2018-03-14] MEDS ORDERED: Vancomycin 500mg/D5W 110ml IVPB SCH ×2 (06:00)
[2018-03-14 07:39] LABS: HEMATOCRIT 21.6 % (37.0-47.0); MEAN CORPUSCULAR VOLUME 90 FL (80-99); PLATELET COUNT 186 K/UL (150-450); RED CELL DISTRIBUTION WIDTH 15.1 % (11.6-14.8); WHITE BLOOD COUNT 2.5 K/UL (4.8-10.8)
[2018-03-14 08:00] VITALS: BP_SYST 116; BP_SYST 124; BP_DIAS 43; BP_DIAS 45
[2018-03-14] MEDS: Docusate 100mg cap ORAL SCH (08:10)
[2018-03-14] MEDS ORDERED: Tubing Blood Filter IV ONE (10:26)
[2018-03-14] MEDS ORDERED: NS 275ml ONE (10:26)
[2018-03-14 12:00] VITALS: BP 126/54
--- NOTE | 2018-03-14 14:57 | Cardiac Electrophysiology PN ---
Assessment/Plan Assessment/Plan 1. Bradycardia with bifascicular block. No further nikhil. Echocardiogram EF 55% 2. Paroxysmal atrial fibrillation. The patient was on amiodarone, currently off amiodarone . Off anticoagulation in view of severe anemia and thrombocytopenia with transfusion. 3. Myelodysplastic syndrome. Further evaluation by Dr. Doe DC home today. ANISA RN Subjective Subjective On Telemetry. No CP. Had blood transfusion. Going home today Objective Last 24 Hour Vital Signs Date Time Temp Pulse Resp B/P (MAP) Pulse Ox O2 Delivery O2 Flow Rate FiO2 03/14/18 12:00 98.0 66 16 126/54 (78) 100 98.0 03/14/18 09:00 Room Air 03/14/18 08:00 69 03/14/18 08:00 98.0 74 16 116/43 (67) 98 98.0 03/14/18 04:00 63 03/14/18 04:00 98.4 65 20 123/48 (73) 98 98.4 03/14/18 00:00 98.3 77 19 140/59 (86) 100 98.3 03/14/18 00:00 65 03/13/18 21:00 Room Air 03/13/18 20:00 68 03/13/18 20:00 97.9 63 18 143/53 (83) 99 97.9 03/13/18 16:00 98.7 69 20 127/49 (75) 95 98.7 03/13/18 16:00 68 Intake and Output 03/13/18 03/14/18 19:00 07:00 Intake Total 480 ml 345 ml Balance 480 ml 345 ml Intake Oral 480 ml 240 ml IV Total 105 ml # Voids 2 3 # Bowel Movements 1 Laboratory Tests Test 03/13/18 17:00 03/14/18 06:48 Vancomycin Level Trough 6.8 ug/mL (5.0-12.0) White Blood Count 2.5 K/UL (4.8-10.8) L Red Blood Count 2.40 M/UL (4.20-5.40) L Hemoglobin 7.0 G/DL (12.0-16.0) L Hematocrit 21.6 % (37.0-47.0) L Mean Corpuscular Volume 90 FL (80-99) Mean Corpuscular Hemoglobin 29.3 PG (27.0-31.0) Mean Corpuscular Hemoglobin Concent 32.5 G/DL (32.0-36.0) Red Cell Distribution Width 15.1 % (11.6-14.8) H Platelet Count 186 K/UL (150-450) Mean Platelet Volume 8.4 FL (6.5-10.1) Neutrophils (%) (Auto) % (45.0-75.0) Lymphocytes (%) (Auto) % (20.0-45.0) Monocytes (%) (Auto) % (1.0-10.0) Eosinophils (%) (Auto) % (0.0-3.0) Basophils (%) (Auto) % (0.0-2.0) Differential Total Cells Counted 100 Neutrophils % (Manual) 80 % (45-75) H Lymphocytes % (Manual) 16 % (20-45) L Monocytes % (Manual) 4 % (1-10) Eosinophils % (Manual) 0 % (0-3) Basophils % (Manual) 0 % (0-2) Band Neutrophils 0 % (0-8) Other Cell Type Platelet Estimate Adequate Platelet Morphology Normal Polychromasia 1+ Anisocytosis 1+ Objective HEAD AND NECK: No JVD LUNGS: Clear. CARDIOVASCULAR: Shows regular S1 and S2 with no gallop or murmur. ABDOMEN: Soft. EXTREMITIES: 1+ pitting edema. Devin Quinn MD Mar 14, 2018 14:57
--- NOTE | 2018-03-14 19:02 | General Progress Note ---
Assessment/Plan Status: stable Assessment/Plan Assessment/Recs: # Myelodysplastic syndrome -- on presentation significantly the hgb was 4. It is likely related to myelodysplastic syndrome, at this time attempting to confirm which treatment she is on for MDS, will request medical records, have placed order for this. Does not appear to be transforming to AML/ALL, at this time, recommend to keep hgb >7, plt count 20k and will rule out DIC --> prbc prn hgb <7 to goal --> neupogen if wbc is lower --> hepatitis and hiv in the past negative --> imaging of the us reviewed, from prior hospitalization --> currently seeing pt in outpatient clinic --> continue hematology outpatient followup --> recommend to admit to SNF as requiring transfusions, recurrent admissions, discussed with patient appears she is not as interested --> in the past has failed multiple treatments # Severe anemia - secondary to MDS --> r/o gi bleed, prior w/u negative --> eval by gi team in the past --> Blood tx: 03/13, 03/14 # Neutropenia - neutropenic precautions, give one dose of Neupogen sq prn anc < 1000 --> abx as needed # History of HTN # Symptomatic anemia --> standing order has been placed Appreciate consultation greatly! Subjective Date patient seen: Mar 14, 2018 Hematologic/Lymphatic: Reports: anemia Allergies: Coded Allergies: No Known Allergies (Unverified , 03/10/18) All Systems: reviewed and negative except above Subjective S/P blood tx, Hgb improved to 7.0 . DC planning. Objective Last 24 Hour Vital Signs Date Time Temp Pulse Resp B/P (MAP) Pulse Ox O2 Delivery O2 Flow Rate FiO2 03/14/18 12:00 98.0 66 16 126/54 (78) 100 98.0 03/14/18 09:00 Room Air 03/14/18 08:00 69 03/14/18 08:00 98.0 74 16 116/43 (67) 98 98.0 03/14/18 04:00 63 03/14/18 04:00 98.4 65 20 123/48 (73) 98 98.4 03/14/18 00:00 98.3 77 19 140/59 (86) 100 98.3 03/14/18 00:00 65 03/13/18 21:00 Room Air 03/13/18 20:00 68 03/13/18 20:00 97.9 63 18 143/53 (83) 99 97.9 Intake and Output 03/13/18 03/14/18 18:59 06:59 Intake Total 480 ml 345 ml Balance 480 ml 345 ml Intake Oral 480 ml 240 ml IV Total 105 ml # Voids 2 3 # Bowel Movements 1 Laboratory Tests 03/14/18 06:48: White Blood Count 2.5L, Red Blood Count 2.40L, Hemoglobin 7.0L, Hematocrit 21.6L , Mean Corpuscular Volume 90, Mean Corpuscular Hemoglobin 29.3, Mean Corpuscular Hemoglobin Concent 32.5, Red Cell Distribution Width 15.1H, Platelet Count 186, Mean Platelet Volume 8.4, Neutrophils (%) (Auto) , Lymphocytes (%) (Auto) , Monocytes (%) (Auto) , Eosinophils (%) (Auto) , Basophils (%) (Auto) , Differential Total Cells Counted 100, Neutrophils % ( Manual) 80H, Lymphocytes % (Manual) 16L, Monocytes % (Manual) 4, Eosinophils % ( Manual) 0, Basophils % (Manual) 0, Band Neutrophils 0, Other Cell Type , Platelet Estimate Adequate, Platelet Morphology Normal, Polychromasia 1+, Anisocytosis 1+ Height (Feet): 5 Height (Inches): 6.00 Weight (Pounds): 187 General Appearance: no apparent distress EENT: PERRL/EOMI Neck: normal alignment Cardiovascular: normal peripheral pulses Respiratory/Chest: no respiratory distress Abdomen: soft Jeison Doe MD Mar 14, 2018 19:02
--- NOTE | 2018-03-15 12:23 | Discharge Summary ---
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 Patient recently received blood transfusion. Upon evaluation patient found to be severely anemic with hemoglobin 6.6, hematocrit 20.8 ;n platelet count 105, WBC 3.1. Urinalysis was negative for evidence of UTI BU 29 ,creatinine 1.3. Electrolytes and LFT were stable. Lactic acid 0.9. Patient admitted with diagnoses of myelodysplastic syndrome ,pancytopenia , severe symptomatic anemia ,cellulitis right antecubital fossa. CONSULTANTS: dock associate Dr. Dr. Quinn ID specialist Dr. Wily Madison childcare attendant/oncologist Dr. Doe [facility] COURSE: Patient admitted to telemetry floor. Webmethods Consultant closely followed. Patient undergone transfusion of 3 units of packed red blood cells. Hemoglobin and hematocrit were closely monitored with goal to keep hemoglobin 7 or above. Prior to discharge hemoglobin 7 ,hematocrit 21.6. Platelet count stabilized and within normal range, - 186. WBC down to 2.5. Severe anemia was secondary to myelodysplastic syndrome. Prior workup for GI bleeding was negative. Patient was evaluated by GI team in the past. Platelet and WBC count were closely monitored. Patient i on treatment for myelodysplastic syndrome with her outpatient childcare attendant. Epogen was continued. Infectious disease specialist closely followed. Patient with evidence of right arm phlebitis and cellulitis. Patient was on IV vancomycin while in the hospital and transitioned to oral antibiotic prior to discharge to complete the course. EKG showed sinus bradycardia with right bundle branch block and left anterior fascicular block . [employer] consulted . Echocardiogram revealed preserved ejection fraction 55% along with severe aortic stenosis, severe mitral regurgitation and severe pulmonary hypertension. Patient initially was on amiodarone, then was taken off amiodarone. Patient was off anticoagulation , given severe anemia with transfusion. Blood rpessure was closely monitored, remained stable. Bradycardia resolved. Patient was not on any blocking agents. Outpatient follow up with dock associate recommended. Patient stabilized and was ready for discharge to [facility] . FINAL DIAGNOSES: Myelodysplastic syndrome Severe anemia secondary to myelodysplastic syndrome Thrombocytopenia Pancytopenia Right arm phlebitis and cellulitis Hypertension Bradycardia with bifascicular block Paroxysmal atrial fibrillation DISCHARGE MEDICATIONS: See Medication Reconciliation list. DISCHARGE INSTRUCTIONS: Patient was discharged to conventional housing . Patient to follow-up with primary care provider and outpatient childcare attendant in one week. I have been assigned to dictate discharge summary for this account. I was not involved in the patient's management. Sosa Dewey NP Mar 15, 2018 12:23
== END 2018-03-14 15:30 | disposition home or self-care (01) | DRG 812 ==
LOC: EMR 12:50 → 4E 13:34 → EDBEDREQ 14:14 → 2E 03-11 16:54
PROC: 30233N1 Transfusion of Nonautologous Red Blood Cells into Peripheral Vein, Percutaneous Approach (ICD-10-PCS; principal; 2018-03-10)
DX: D46.9 Myelodysplastic syndrome, unspecified (principal); L03.113 Cellulitis of right upper limb; D61.818 Other pancytopenia; I45.2 Bifascicular block; T80.1XXA Vascular complications following infusion, transfusion and therapeutic injection, initial encounter; Z23 Encounter for immunization; E78.5 Hyperlipidemia, unspecified; I10 Essential (primary) hypertension; D50.9 Iron deficiency anemia, unspecified; E55.9 Vitamin D deficiency, unspecified; I80.8 Phlebitis and thrombophlebitis of other sites; R00.1 Bradycardia, unspecified; I48.0 Paroxysmal atrial fibrillation; Z85.3 Personal history of malignant neoplasm of breast; I35.0 Nonrheumatic aortic (valve) stenosis; I34.0 Nonrheumatic mitral (valve) insufficiency; I27.20 Pulmonary hypertension, unspecified
CPT/HCPCS: 36415; 80053; 80202; 81001; 82550; 82553; 82668; 83605; 83880; 84439; 84443; 85007; 85025; 86850; 86870; 86900; 86901; 86904; 86920; 87040; 87081; 93005; 93306; 99285